=== PATIENT | male | born 1960 | race Caucasian/White ===

== ENCOUNTER → 2021-06-25 | Outpatient (CLI) | payer OTHER, MEDICARE ==
--- NOTE | 2021-06-25 12:32 | Diagnostic Imaging Report ---
PROCEDURE: US right lower extremity venous. TECHNIQUE: Multiple real-time grayscale images were obtained over the right lower extremity in various projections. Additional spectral analysis and color Doppler duplex images were also obtained. INDICATION: Right calf pain. FINDINGS: There is no evidence of right lower extremity DVT. Right lower extremity deep venous system shows normal compressibility with normal response to augmentation and Valsalva. No fluid collection or mass is detected. IMPRESSION: No evidence of right lower extremity DVT. Dictated by: Dictated on workstation # [id number]
== END ==
LOC: RAD 11:37
PROVIDERS: ATTEND Nurse Practitioner Family
DX: S73.191A Other sprain of right hip, initial encounter (principal); X58.XXXA Exposure to other specified factors, initial encounter

== ENCOUNTER → 2021-10-11 | Outpatient (CLI) | payer OTHER, MEDICARE | LOC: WOUNDCARE 10:18 | PROVIDERS: ATTEND Family Medicine | DX: T65.292A Toxic effect of other tobacco and nicotine, intentional self-harm, initial encounter (principal); E11.43 Type 2 diabetes mellitus with diabetic autonomic (poly)neuropathy; T31.0 Burns involving less than 10% of body surface; T25.332A Burn of third degree of left toe(s) (nail), initial encounter; E11.65 Type 2 diabetes mellitus with hyperglycemia | CPT/HCPCS: 16020; G0463 ==

== ENCOUNTER → 2021-10-18 | Outpatient (CLI) | payer OTHER, MEDICARE | LOC: WOUNDCARE 08:28 | PROVIDERS: ATTEND Family Medicine | DX: T65.292A Toxic effect of other tobacco and nicotine, intentional self-harm, initial encounter (principal); E11.43 Type 2 diabetes mellitus with diabetic autonomic (poly)neuropathy; T31.0 Burns involving less than 10% of body surface; T25.332A Burn of third degree of left toe(s) (nail), initial encounter; E11.65 Type 2 diabetes mellitus with hyperglycemia; I70.213 Atherosclerosis of native arteries of extremities with intermittent claudication, bilateral legs; E11.52 Type 2 diabetes mellitus with diabetic peripheral angiopathy with gangrene | CPT/HCPCS: 16020; G0463 ==

== ENCOUNTER → 2021-10-24 | Outpatient (CLI) | payer OTHER, MEDICARE | LOC: WOUNDCARE 08:29 | PROVIDERS: ATTEND Family Medicine | DX: T65.292A Toxic effect of other tobacco and nicotine, intentional self-harm, initial encounter (principal); E11.43 Type 2 diabetes mellitus with diabetic autonomic (poly)neuropathy; T31.0 Burns involving less than 10% of body surface; T25.332A Burn of third degree of left toe(s) (nail), initial encounter; E11.65 Type 2 diabetes mellitus with hyperglycemia; I70.213 Atherosclerosis of native arteries of extremities with intermittent claudication, bilateral legs; E11.52 Type 2 diabetes mellitus with diabetic peripheral angiopathy with gangrene | CPT/HCPCS: 16020; G0463 ==

== ENCOUNTER → 2021-10-29 | Outpatient (CLI) | payer OTHER, MEDICARE | LOC: CARD 08:30 | PROVIDERS: ATTEND Internal Medicine Cardiovascular Disease | DX: I11.9 Hypertensive heart disease without heart failure (principal); I25.10 Atherosclerotic heart disease of native coronary artery without angina pectoris | CPT/HCPCS: 93306 ==

== ENCOUNTER → 2021-10-31 | Outpatient (CLI) | payer OTHER, MEDICARE ==
[~2021-10-31] MED LIST: ALLO300T2 PO; ASPI-1238 PO; ATOR20TA66 PO; CARB1TAB43 PO; CLOP75TA28 PO; DICL75TA2 PO; HYDR-3817 PO; INSU100I34 SQ; MELO15TA14 PO; METF-399 PO; NF-GLIP2.5 PO; PREG75CA75 PO; ROPI4TAB21 PO; SERT-413 PO; SILV20CR14 TP; TRAM50TA3 PO
== END ==
LOC: WOUNDCARE 08:14
PROVIDERS: ATTEND Family Medicine
DX: T65.292A Toxic effect of other tobacco and nicotine, intentional self-harm, initial encounter (principal); E11.43 Type 2 diabetes mellitus with diabetic autonomic (poly)neuropathy; T31.0 Burns involving less than 10% of body surface; T25.332A Burn of third degree of left toe(s) (nail), initial encounter; E11.65 Type 2 diabetes mellitus with hyperglycemia; I70.213 Atherosclerosis of native arteries of extremities with intermittent claudication, bilateral legs; E11.52 Type 2 diabetes mellitus with diabetic peripheral angiopathy with gangrene
CPT/HCPCS: 99213

== ENCOUNTER → 2021-11-01 | Outpatient (CLI) | payer OTHER, MEDICARE ==
[~2021-11-01] VITALS: Ht 175 cm; Wt 105.0 kg
[~2021-11-01] MED LIST changes: +CATHETER FLUSH 10 ML SYR IVP PRN; +REGADENOSON 0.4 MG/5 ML SYR (LEXISCAN) IV ONE
[2021-11-01 07:59] VITALS: BP 158/87
--- NOTE | 2021-11-01 12:18 | Cardiology Stress Test Report ---
Stress Test Report Date of Procedure/Referring: Date of Procedure: Nov 01, 2021 PCP Gricel Mcdonough MD Admitting Physician Jason Peralta MD Indications: HTN Baseline Heart Rate: 73 Baseline Blood Pressure: Blood Pressure Systolic: 158 Blood Pressure Diastolic: 87 Baseline Vitals Vital Signs Date Time Temp Pulse Resp B/P (MAP) Pulse Ox O2 Delivery O2 Flow Rate FiO2 11/01/21 07:59 73 158/87 (110) 99 Baseline EKG: Baseline EKG: NSR Summary After explaining the procedure to the patient, he signed a consent and then brought to the stress nuclear laboratory. Patient received 0.4 mg Lexiscan for stress test, ECG, heart rate and blood pressure were monitored continuously. Resting and stress dose of radio tracer were injected, imaging was acquired and reviewed in short axis, horizontal long axis and vertical long axis views. SSS: 4 SDS: 4 EF: 56 1. Patient tolerated Lexiscan well 2. No attenuation correction was done on the study, there is mild decrease uptake involving the mid to apical anteroseptum with mild reversibility, no sig nificant ischemia or infarction on SPECT images 3. Ejection fraction 56%, normal left ventricular size. GRICEL MCDONOUGH MD Nov 01, 2021 12:18
== END ==
LOC: CARD 06:42
PROVIDERS: ATTEND Internal Medicine Cardiovascular Disease
DX: I10 Essential (primary) hypertension (principal); I25.10 Atherosclerotic heart disease of native coronary artery without angina pectoris
CPT/HCPCS: 78452; 93017; A9502

== ENCOUNTER 2021-11-02 06:35 | Day surgery (SDC) | payer OTHER, MEDICARE ==
[~2021-11-02] VITALS: Ht 177 cm; Wt 106.9 kg
[2021-11-02] VITALS (17 sets, daily range): BP systolic 111–165; BP diastolic 72–102
[2021-11-02] MEDS ORDERED: HEParin (CATH LAB) 2,000 ML IV ONE (06:55)
[2021-11-02] MEDS ORDERED: LIDOCAINE 1% INJ 50 ML (XYLOCAINE) VIAL ONE (06:55)
[2021-11-02] MEDS ORDERED: NS IV 1000 ML 1,000 ML ONE (06:55)
[2021-11-02] MEDS: NS IV 1000 ML 1,000 ML IV SCH ×4 (07:22→19:44)
--- NOTE | 2021-11-02 07:28 | Diagnostic Imaging Report ---
EXAM: CHEST 1 VIEW, AP/PA ONLY INDICATION: Hypertension. Abnormal OSIRIS. Nonhealing wound. COMPARISON: None. FINDINGS: Normal heart size and pulmonary vascularity. No dense consolidation, pleural effusion or pneumothorax. No acute osseous findings. IMPRESSION: No acute cardiopulmonary findings. Dictated by: Dictated on workstation # [id number]
[2021-11-02 07:30] LABS: HEMATOCRIT 45 % (40-54); HEMOGLOBIN 15.6 g/dL (13.3-17.7); MEAN CORPUSCULAR HEMOGLOBIN 32 pg (25-34); MEAN CORPUSCULAR HGB CONC 35 g/dL (32-36); MEAN CORPUSCULAR VOLUME 91 fL (80-99); MEAN PLATELET VOLUME 9.9 fL (9.0-12.2); PLATELET COUNT 204 10^3/uL (130-400); WHITE BLOOD COUNT 7.2 10^3/uL (4.3-11.0)
[2021-11-02 07:32] LABS: BILIRUBIN,URINE NEGATIVE (NEGATIVE); CLARITY,URINE SL CLOUDY; COLOR,URINE YELLOW; GLUCOSE, URINE (UA) 3+ (NEGATIVE); KETONES,URINE NEGATIVE (NEGATIVE); LEUKOCYTE ESTERASE ,URINE 2+ (NEGATIVE); NITRITE,URINE NEGATIVE (NEGATIVE); PH,URINE 6.5 (5-9); PROTEIN,URINE NEGATIVE (NEGATIVE)
[2021-11-02 07:44] LABS: BACTERIA,URINE NEGATIVE /HPF; RBC,URINE 0-2 /HPF; WBC,URINE 50-100 /HPF
[2021-11-02 07:49] LABS: ALBUMIN 4.3 GM/DL (3.2-4.5); BILIRUBIN,TOTAL 0.6 MG/DL (0.1-1.0); CALCIUM 10.1 MG/DL (8.5-10.1); CREATININE SERUM 1.49 MG/DL (0.60-1.30); POTASSIUM 4.2 MMOL/L (3.6-5.0); TOTAL PROTEIN 8.1 GM/DL (6.4-8.2)
[2021-11-02 08:12] LABS: PROTHROMBIN TIME PATIENT 13.7 SEC (12.2-14.7)
[2021-11-02] MEDS ORDERED: TRAM50TA3 PO (08:51)
[2021-11-02] MEDS ORDERED: CARB1TAB43 PO (08:51)
[2021-11-02] MEDS ORDERED: PREG75CA75 PO (08:51)
[2021-11-02] MEDS ORDERED: METF-399 PO (08:51)
[2021-11-02] MEDS ORDERED: MELO15TA14 PO (08:51)
[2021-11-02] MEDS ORDERED: ROPI4TAB21 PO (08:51)
[2021-11-02] MEDS ORDERED: DICL75TA2 PO (08:51)
[2021-11-02] MEDS ORDERED: INSU100I34 SQ (08:51)
[2021-11-02] MEDS ORDERED: SERT-413 PO (08:51)
[2021-11-02] MEDS ORDERED: NF-GLIP2.5 PO (08:51)
[2021-11-02] MEDS ORDERED: ASPI-1238 PO (08:51)
[2021-11-02] MEDS ORDERED: ALLO300T2 PO (08:51)
[2021-11-02] MEDS ORDERED: HYDR-3817 PO (08:51)
[2021-11-02] MEDS ORDERED: SILV20CR14 TP (08:51)
[2021-11-02] MEDS ORDERED: LIDOCAINE 1% INJ 50 ML (XYLOCAINE) VIAL IJ ONE (09:00)
--- NOTE | 2021-11-02 09:13 | Conscious Sedation/ASA ---
Conscious Sedation Pre-Proced Time 09:12 ASA Score 3 For ASA 3 and 4: Consider anesthesia and medical clearance. Also, for patients with a history of failed moderate sedation consider anesthesia. Airway Lungs Heart ASA score ASA 1: a normal healthy patient ASA 2: a patient with a mild systemic disease (mid diabetes, controlled hypertension, obesity x ASA 3: a patient with a severe systemic disease that limits activity (angina, COPD, prior Myocardial infarction) ASA 4: a patient with an incapacitating disease that is a constant threat to life (CHF, renal failure) ASA 5: a moribund patient not expected to survive 24 hrs. (ruptured aneurysm) ASA 6: a declared brain- patient whose organs are being harvested. For emergent operations, add the letter E after the classification Mallampati Classification Grade 3 Sedation Plan Analgesia, Amnesia, Plan communicated to team members, Discussed options with patient/fam, Discussed risks with patient/fam The patient is an appropriate candidate to undergo the planned procedure, sedation, and anesthesia. The patient immediately re-assessed prior to indication. GRICEL HUERTAS MD Nov 02, 2021 09:13
[2021-11-02] MEDS ORDERED: fentaNYL INJ 100 MCG/2 ML AMP ONE (09:27)
[2021-11-02] MEDS ORDERED: MIDAZOLAM 5 MG/5 ML (VERSED) VIAL ONE (09:27)
[2021-11-02] MEDS ORDERED: NITRO DRIP 25000 MCG/D5W 0 ML IV ONE (10:09)
[2021-11-02] MEDS ORDERED: HEParin 1000 UNIT/ML (10ML VIAL) FOR BOLUS ONE (10:09)
[2021-11-02] MEDS ORDERED: CLOPIDOGREL 300 MG (PLAVIX) TABLET PO ONE (10:29)
[2021-11-02] MEDS ORDERED: ASPIRIN 325 MG (5 GR) TABLET ONE (10:29)
[2021-11-02] MEDS ORDERED: PATIENT MAY USE OWN MEDS, ALL PO SCH (10:30)
[2021-11-02] MEDS ORDERED: HYDROcodone/APAP 7.5 MG/325 MG (LORTAB, LORCET PLUS) TABLET PO PRN (10:45)
--- NOTE | 2021-11-02 11:05 | Cardiac Cath Report ---
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 After explaining the procedure to the patient, all pros and cons were explained, all questions were answered. The patient signed the consent and then he was placed on the cardiac catheterization laboratory. Groin was prepped SL fashion local anesthesia was used. Sheath placed in the right femoral artery. Sandy right and left catheter were used to access the coronary system. EBU guide was prolapsed to the left ventricular cavity, pressure was measured, pullback LV to aorta was done. Patient has severe stenosis in the proximal LAD, 6000 units of heparin were given then EBU guide was used, BMW wire was advanced and parked at the distal LAD, primary stenting using ana paula point stent 3 x 23 expanded to 3.2 mm with excellent results. Sandy right was advanced to the left common iliac artery and runoff to the left lower extremity was done. I tried with DSA imaging to the trifurcation and it was not good image. I advanced a Storq wire and then exchanged the catheter used long straight catheter advanced it to the tibioperoneal trunk, did the DSA imaging to the trifurcation then repeat DSA imaging at the foot level, I flushed the catheter and recorded the pressure at the tibioperoneal trunk then during pullback there was a step up in the pressure at the mid SFA. I proceeded with DSA imaging to the mid SFA then pulled back to the common iliac artery then to the aorta and measuring pressure. At the end of the procedure runoff to the right lower extremity was done through the sheath down to the trifurcation. At the end of the procedure the sheath was removed. Closure device was deployed FINDINGS: Hemodynamics LV 141/27, end-diastolic pressure of 27 Aorta 137/83 mean of 106 Left tibioperoneal trunk 132/80/98 Left mid SFA 150/80/104 Left iliac 140/76/98 Lower abdominal aorta 138/77/98 ANATOMY: Left Main is free of obstructive disease Left Anterior Descending has severe stenosis proximally successful primary stenting using skypoint stent 3 x 23 expanded to 3.2 mm, mild disease distally Left Circumflex is large dominant artery, first obtuse marginal branch has moderate to severe mid stenosis Right Coronary Artery is small nondominant artery LV Gram was not done, pressure was measured Left lower extremity, angiogram was done from the left iliac artery then DSA at the level of the trifurcation with the catheter at the tibioperoneal trunk and repeat DSA was done at the foot level, during pullback DSA imaging was done to the mid SFA due to the jump in pressure. Left common iliac and common femoral artery are slightly tortuous with no obstructive disease, left SFA is severely calcified, moderate stenosis at the midportion with 20 mm gradient across the lesion. Distal SFA has moderate stenosis with mild disease, below the trifurcation there is no significant obstructive disease, slow flow due to small vessel disease distally. Right lower extremity: No obstructive disease in the right common femoral artery, right SFA is calcified with mild disease, below the trifurcation there is slow flow with no obstructive disease CONCLUSION: 1. Severe stenosis in the proximal LAD with successful primary stenting using ana paula point stent 3 x 23 expanded to 3.2 mm with excellent results 2. Moderate severe stenosis at the first obtuse marginal branch treated medica lly 3. Elevated left ventricular end-diastolic pressure 4. Heavily calcified left SFA with moderate stenosis at the midportion nonobstructive disease otherwise slow flow below the trifurcation distally due to small vessel disease 5. Mildly calcified right SFA with mild disease nonobstructive disease down to the trifurcation DISCUSSION AND RECOMMENDATION: Patient was loaded with aspirin and Plavix, adding Lipitor due to hyperlipidemia, continue to maximize medical therapy, continue to monitor will consider intervention on the obtuse marginal branch if patient becomes symptomatic. Consider repeating stress test in 6 months. Anesthesia Type: Conscious Sedation Estimated blood loss (mL): 30 ml Contrast Amount: 90 ml Total Radiation Dose: 1039 mGy Post-Procedure Diagnosis Post-operative diagnosis: Nonhealing foot ulcer Coronary artery disease Peripheral arterial disease Hypertension Hyperlipidemia GRICEL HUERTAS MD Nov 02, 2021 11:05
[2021-11-02] MEDS: ETODOLAC 300 MG (LODINE) CAP PO SCH (18:32)
[2021-11-02] MEDS ORDERED: NON-FORMULARY MEDICATION 1 EA EA (Ropinirole HCl 4 MG) PO SCH (21:00)
[2021-11-02] MEDS ORDERED: [UNRECOGNIZED DRUG - OTHER] PO SCH (21:00)
[2021-11-02] MEDS ORDERED: NON-FORMULARY MEDICATION 1 EA EA (Diclofenac Sodium 75 MG) PO SCH (21:00)
[2021-11-02] MEDS ORDERED: CARBIDOPA PO SCH (21:00)
[2021-11-02] MEDS ORDERED: SINEMET 10/100 (CARBIDOPA/LEVADOPA) TAB PO SCH (21:00)
[2021-11-02] MEDS ORDERED: rOPINIRole 1 MG (REQUIP) TABLET PO SCH (21:00)
[2021-11-02] MEDS ORDERED: LEVODOPA PO SCH (21:00)
[2021-11-02] MEDS: PREGABALIN 75 MG (LYRICA) CAP PO SCH (21:26)
[2021-11-03] MEDS: NS IV 1000 ML 1,000 ML IV SCH ×2 (02:29→09:07)
[2021-11-03 03:43] VITALS: BP 148/93
[2021-11-03 05:53] LABS: HEMATOCRIT 40 % (40-54); HEMOGLOBIN 14.1 g/dL (13.3-17.7); MEAN CORPUSCULAR HEMOGLOBIN 31 pg (25-34); MEAN CORPUSCULAR HGB CONC 35 g/dL (32-36); MEAN CORPUSCULAR VOLUME 89 fL (80-99); MEAN PLATELET VOLUME 9.9 fL (9.0-12.2); PLATELET COUNT 157 10^3/uL (130-400); WHITE BLOOD COUNT 6.8 10^3/uL (4.3-11.0)
[2021-11-03 06:22] LABS: CALCIUM 9.2 MG/DL (8.5-10.1); CREATININE SERUM 1.1 MG/DL (0.60-1.30)
[2021-11-03] MEDS ORDERED: glipiZIDE XL 2.5 MG (GLUCOTROL XL) TAB PO SCH (07:00)
[2021-11-03] MEDS ORDERED: CLOP75TA28 PO (07:04)
[2021-11-03] MEDS ORDERED: METF-399 PO (07:04)
[2021-11-03] MEDS ORDERED: ATOR20TA66 PO (07:04)
[2021-11-03 08:00] VITALS: BP 165/96
--- NOTE | 2021-11-03 08:28 | Discharge Inst-Post CATH ---
Discharge Inst-CATH/EP Problems Reviewed?: Yes Post Cardiac Cath/EP D/C Inst Follow Up/Plan Appointment with Dr. Mcdonough's office in 2 to 4 weeks <b>CARDIAC CATH/EP PROCEDURE DISCHARGE INSTRUCTIONS</b> ACTIVITY * Go Home directly and rest. * Limit activity of the leg (or wrist if it was used) for 7 days including aer obics, swimming, jogging, bicycling, etc. * Restrict stair-climbing for 7 days if possible, if not, climb up with your non-cath leg, then bring together on the same step. * Avoid lifting, pushing, pulling or excessive movement of the affected extremi ty for 7 days. * Customary sexual activity may be resumed after 2 days-use caution not to use a position that strains or causes pain to the affected extremity. * No driving for 24 hours. * NO SMOKING. * Avoid straining for bowel movements for 7 days. * Gentle walking on level ground is allowed. * Returning to work will depend on the type of procedure and the results. Your doctor will discuss this with you. CALL YOUR DOCTOR FOR ANY OF THE FOLLOWING: *If bleeding from the puncture site occurs- Apply gentle pressure to site with clean cloth and call your doctor or EMS. * If a knot or lump forms under the skin, increases in size, or causes pain. * If bruising appears to be worsening or moving further down your leg instead of disappearing. * Temperature above 101 F. CARE OF YOUR GROIN INCISION; * Bruising or purple discoloration of the skin near the puncture site is common. * You may shower only, no bathtub bathing for 5 days. Be careful to avoid slipping as your leg may feel stiff. * If a closure device was used on your femoral artery, please see the attached guide regarding care of the device and your leg. * Leave dressing on FOR 24 hours. CARE OF YOUR WRIST INCISION; * Bruising or purple discoloration of the skin near the puncture site is common. * You may shower. * DO NOT submerge wrist. * Leave dressing on FOR 24 hours. GRICEL MCDONOUGH MD Nov 03, 2021 08:28
--- NOTE | 2021-11-03 08:32 | Cardiology Progress Note ---
Subjective Date Seen by Provider: Nov 03, 2021 Time Seen by Provider: 08:29 Subjective/Events-last exam Patient was seen at bedside sitting comfortably, denied any chest pain, no new complaint Review of Systems General: No Chills, No Night Sweats, No Fatigue, No Malaise, No Appetite, No Ot her HEENT: No Head Aches, No Visual Changes, No Eye Pain, No Ear Pain, No Dysp hasia, No Sinus Congestion, No Post Nasal Drip, No Sore Throat, No Other Pulmonary: No Dyspnea, No Cough, No Pleuritic Chest Pain, No Other Cardiovascular: No: Chest Pain, Palpitations, Orthopnea, Paroxysmal Noc. Dyspnea, Edema, Lt Headedness, Other Objective-Cardiology Exam Last Set of Vital Signs Vital Signs 11/03/21 11/03/21 08:00 08:09 Temp 36.0 Pulse 75 Resp 12 B/P (MAP) 165/96 (119) Pulse Ox 98 O2 Delivery Room Air I&O Intake and Output 11/03/21 00:00 Intake Total 650 ml Balance 650 ml Intake Oral 650 ml # Voids 3 General: Alert, Oriented X3, Cooperative HEENT: Atraumatic, PERRLA Neck: Supple, No JVD, No Thyromegaly Lungs: Clear to Auscultation, Normal Air Movement Heart: Regular Rate, Normal S1, Normal S2, No Murmurs Abdomen: Normal Bowel Sounds, Soft, No Tenderness, No Hepatosplenomegaly, No Masses Extremities: No Clubbing, No Cyanosis, No Edema, Normal Pulses, No Tenderness/Swelling Skin: No Rashes, No Breakdown, No Significant Lesion Neuro: Normal Gait, Normal Speech, Strength at 5/5 X4 Ext, Normal Tone, Sensation Intact Psych/Mental Status: Mental Status NL, Mood NL Results Lab Laboratory Tests 11/03/21 05:40 A/P-Cardiology Admission Diagnosis Coronary artery disease Peripheral arterial disease Hypertension Hyperlipidemia Assessment/Plan Coronary artery disease status post stenting to the LAD using skypoint stent 3 x 23 expanded to 3.2 mm with excellent results Peripheral arterial disease, angiogram showed 1. Severe stenosis in the proximal LAD with successful primary stenting using skypoint stent 3 x 23 expanded to 3.2 mm with excellent results 2. Moderate severe stenosis at the first obtuse marginal branch treated medically 3. Elevated left ventricular end-diastolic pressure 4. Heavily calcified left SFA with moderate stenosis at the midportion nonobstructive disease otherwise slow flow below the trifurcation distally due to small vessel disease 5. Mildly calcified right SFA with mild disease nonobstructive disease down to the trifurcation Hypertension, restart home medication monitor Hyperlipidemia, previously intolerant to statin, reported that he tried Lipitor and Crestor. I will try Lipitor again Diabetes mellitus, followed and managed by primary care physician, educated on holding Metformin for 48 hours Obesity, educated on weight loss and diet Patient was educated in length about aspirin and Plavix and the need to be on these medications. GRICEL HUERTAS MD Nov 03, 2021 08:32
[2021-11-03] MEDS ORDERED: ALLOPURINOL 300 MG (ZYLOPRIM) TAB PO SCH (09:00)
[2021-11-03] MEDS ORDERED: ASPIRIN E.C. 81 MG (ECOTRIN) TAB PO SCH (09:00)
[2021-11-03] MEDS ORDERED: MELOXICAM 7.5 MG (MOBIC) TABLET PO SCH (09:00)
[2021-11-03] MEDS ORDERED: SERTRALINE 50 MG (ZOLOFT) TABLET PO SCH (09:00)
[2021-11-03] MEDS ORDERED: MELOXICAM 15 MG PO SCH (09:00)
[2021-11-03] MEDS ORDERED: CLOPIDOGREL 75 MG (PLAVIX) TABLET PO SCH (09:00)
[2021-11-03] MEDS: ETODOLAC 300 MG (LODINE) CAP PO SCH (09:06)
[2021-11-03] MEDS: PREGABALIN 75 MG (LYRICA) CAP PO SCH (09:06)
== END 2021-11-03 09:38 | disposition home or self-care (01) ==
LOC: CATH 06:35 → CSD 10:49 → CATH 11-03 09:38
PROVIDERS: ATTEND Internal Medicine Cardiovascular Disease
DX: I25.10 Atherosclerotic heart disease of native coronary artery without angina pectoris (principal); E11.51 Type 2 diabetes mellitus with diabetic peripheral angiopathy without gangrene; E11.621 Type 2 diabetes mellitus with foot ulcer; I70.213 Atherosclerosis of native arteries of extremities with intermittent claudication, bilateral legs; L97.509 Non-pressure chronic ulcer of other part of unspecified foot with unspecified severity; I10 Essential (primary) hypertension; E78.5 Hyperlipidemia, unspecified; I49.1 Atrial premature depolarization; F17.210 Nicotine dependence, cigarettes, uncomplicated; E66.9 Obesity, unspecified; I65.23 Occlusion and stenosis of bilateral carotid arteries; Z79.899 Other long term (current) drug therapy; Z79.82 Long term (current) use of aspirin; Z79.84 Long term (current) use of oral hypoglycemic drugs; Z90.49 Acquired absence of other specified parts of digestive tract; Z98.890 Other specified postprocedural states; Z68.34 Body mass index [BMI] 34.0-34.9, adult
CPT/HCPCS: 71045; 80048; 80053; 80061; 81000; 82947; 85027 ×2; 85610; 85730; 87081; 87088; 87186; 93005 ×2; 93458; C1760; C1769 ×2; C1874; C1887; C1894; C9600; 36248; 36415; 75716

== ENCOUNTER → 2021-11-07 | Outpatient (CLI) | payer OTHER, MEDICARE ==
[~2021-11-07] MED LIST changes: -CATHETER FLUSH 10 ML SYR IVP PRN; -REGADENOSON 0.4 MG/5 ML SYR (LEXISCAN) IV ONE
== END ==
LOC: WOUNDCARE 08:33
PROVIDERS: ATTEND Family Medicine
DX: T65.292A Toxic effect of other tobacco and nicotine, intentional self-harm, initial encounter (principal); E11.43 Type 2 diabetes mellitus with diabetic autonomic (poly)neuropathy; T31.0 Burns involving less than 10% of body surface; T25.332A Burn of third degree of left toe(s) (nail), initial encounter; E11.65 Type 2 diabetes mellitus with hyperglycemia; I70.213 Atherosclerosis of native arteries of extremities with intermittent claudication, bilateral legs; E11.52 Type 2 diabetes mellitus with diabetic peripheral angiopathy with gangrene
CPT/HCPCS: 16020; A6197; G0463

== ENCOUNTER → 2021-11-14 | Outpatient (CLI) | payer OTHER, MEDICARE | LOC: WOUNDCARE 08:29 | PROVIDERS: ATTEND Family Medicine | DX: T65.292A Toxic effect of other tobacco and nicotine, intentional self-harm, initial encounter (principal); E11.43 Type 2 diabetes mellitus with diabetic autonomic (poly)neuropathy; T31.0 Burns involving less than 10% of body surface; T25.332A Burn of third degree of left toe(s) (nail), initial encounter; E11.65 Type 2 diabetes mellitus with hyperglycemia; I70.213 Atherosclerosis of native arteries of extremities with intermittent claudication, bilateral legs; E11.52 Type 2 diabetes mellitus with diabetic peripheral angiopathy with gangrene | CPT/HCPCS: 16020; G0463 ==

== ENCOUNTER 2021-11-17 10:21 | Emergency (ER) | payer OTHER, MEDICARE ==
[~2021-11-17] VITALS: Ht 106.5 cm; Wt 167.0 kg
[2021-11-17 10:41] LABS: BASOPHILS # (AUTO) 0.1 10^3/uL (0.0-0.1); BASOPHILS % (AUTO) 1 % (0-10); EOSINOPHILS # (AUTO) 0.3 10^3/uL (0.0-0.3); EOSINOPHILS % (AUTO) 5 % (0-10); HEMATOCRIT 41 % (40-54); HEMOGLOBIN 14.3 g/dL (13.3-17.7); LYMPHOCYTES # (AUTO) 1.7 10^3/uL (1.0-4.0); LYMPHOCYTES % (AUTO) 29 % (12-44); MEAN CORPUSCULAR HEMOGLOBIN 31 pg (25-34); MEAN CORPUSCULAR HGB CONC 35 g/dL (32-36); MEAN CORPUSCULAR VOLUME 89 fL (80-99); MEAN PLATELET VOLUME 10.1 fL (9.0-12.2); MONOCYTES # (AUTO) 0.4 10^3/uL (0.0-1.0); MONOCYTES % (AUTO) 7 % (0-12); NEUTROPHILS # (AUTO) 3.3 10^3/uL (1.8-7.8); NEUTROPHILS % (AUTO) 58 % (42-75); PLATELET COUNT 161 10^3/uL (130-400); WHITE BLOOD COUNT 5.7 10^3/uL (4.3-11.0)
[2021-11-17 10:56] LABS: ALBUMIN 4.3 GM/DL (3.2-4.5); POTASSIUM 4.2 MMOL/L (3.6-5.0)
[2021-11-17 10:57] LABS: INR 1.1 (0.8-1.4); PROTHROMBIN TIME PATIENT 14.3 SEC (12.2-14.7)
[2021-11-17 10:59] LABS: TOTAL PROTEIN 7.6 GM/DL (6.4-8.2)
[2021-11-17 11:01] LABS: BILIRUBIN,TOTAL 0.5 MG/DL (0.1-1.0)
[2021-11-17 11:02] LABS: CREATININE SERUM 1.69 MG/DL (0.60-1.30)
[2021-11-17 11:05] LABS: MAGNESIUM 1.9 MG/DL (1.6-2.4)
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
[2021-11-17] MEDS ORDERED: inSUlin (REGULAR) HUMAN 1 UNIT/0.01 ML (CHARGE PER UNIT) IV ONE (11:30)
[2021-11-17] MEDS ORDERED: NS IV 1000 ML 1,000 ML IV SCH (11:30)
--- NOTE | 2021-11-17 11:40 | Diagnostic Imaging Report ---
INDICATION: Chest pain. TECHNIQUE: Single view chest 11:14 AM. CORRELATION STUDY: 11/02/2021 FINDINGS: Heart size is borderline enlarged but stable. Vasculature within normal limits. Lung villeda unchanged with a few areas of micronodularity of both lung bases. No infiltrate. IMPRESSION: 1. Stable chest demonstrates no acute abnormality. Dictated by: Dictated on workstation # [id number]
[2021-11-17 14:10] VITALS: BP 133/82
== END 2021-11-17 14:11 | disposition home or self-care (01) ==
LOC: EDUNIT# 10:21 → ER 10:23
DX: I25.10 Atherosclerotic heart disease of native coronary artery without angina pectoris (principal); F17.210 Nicotine dependence, cigarettes, uncomplicated; Z95.5 Presence of coronary angioplasty implant and graft
CPT/HCPCS: 36415; 71045; 80053; 82947; 83735; 83874; 84484; 85025; 85610; 85730; 93005; 93041

== ENCOUNTER → 2021-11-21 | Outpatient (CLI) | payer OTHER, MEDICARE | LOC: WOUNDCARE 08:57 | PROVIDERS: ATTEND Family Medicine | DX: E11.43 Type 2 diabetes mellitus with diabetic autonomic (poly)neuropathy (principal); T25.332A Burn of third degree of left toe(s) (nail), initial encounter; T31.0 Burns involving less than 10% of body surface; E11.65 Type 2 diabetes mellitus with hyperglycemia; I70.213 Atherosclerosis of native arteries of extremities with intermittent claudication, bilateral legs; E11.52 Type 2 diabetes mellitus with diabetic peripheral angiopathy with gangrene; T65.292A Toxic effect of other tobacco and nicotine, intentional self-harm, initial encounter | CPT/HCPCS: 16020; G0463 ==

== ENCOUNTER → 2021-11-21 | Outpatient (CLI) | payer OTHER, MEDICARE ==
[2021-11-21 10:14] LABS: BILIRUBIN,URINE NEGATIVE (NEGATIVE); CLARITY,URINE CLEAR; COLOR,URINE YELLOW; GLUCOSE, URINE (UA) 3+ (NEGATIVE); KETONES,URINE NEGATIVE (NEGATIVE); LEUKOCYTE ESTERASE ,URINE 1+ (NEGATIVE); NITRITE,URINE NEGATIVE (NEGATIVE); PROTEIN,URINE NEGATIVE (NEGATIVE)
[2021-11-21 11:04] LABS: BACTERIA,URINE TRACE /HPF; RBC,URINE RARE /HPF
== END ==
LOC: LAB 09:56
PROVIDERS: ATTEND Family Medicine
DX: R30.9 Painful micturition, unspecified (principal)
CPT/HCPCS: 81000; 87077; 87088

== ENCOUNTER → 2021-11-28 | Outpatient (CLI) | payer OTHER, MEDICARE | LOC: WOUNDCARE 08:26 | PROVIDERS: ATTEND Family Medicine | DX: T65.292A Toxic effect of other tobacco and nicotine, intentional self-harm, initial encounter (principal); E11.43 Type 2 diabetes mellitus with diabetic autonomic (poly)neuropathy; T25.332A Burn of third degree of left toe(s) (nail), initial encounter; T31.0 Burns involving less than 10% of body surface; E11.65 Type 2 diabetes mellitus with hyperglycemia; E11.51 Type 2 diabetes mellitus with diabetic peripheral angiopathy without gangrene; E11.52 Type 2 diabetes mellitus with diabetic peripheral angiopathy with gangrene | CPT/HCPCS: 16020; G0463 ==

== ENCOUNTER → 2021-12-05 | Outpatient (CLI) | payer OTHER, MEDICARE | LOC: WOUNDCARE 08:24 | PROVIDERS: ATTEND Family Medicine | DX: T65.292A Toxic effect of other tobacco and nicotine, intentional self-harm, initial encounter (principal); E11.43 Type 2 diabetes mellitus with diabetic autonomic (poly)neuropathy; T25.332A Burn of third degree of left toe(s) (nail), initial encounter; T31.0 Burns involving less than 10% of body surface; E11.65 Type 2 diabetes mellitus with hyperglycemia; E11.52 Type 2 diabetes mellitus with diabetic peripheral angiopathy with gangrene; I70.213 Atherosclerosis of native arteries of extremities with intermittent claudication, bilateral legs | CPT/HCPCS: 16020; G0463 ==

== ENCOUNTER → 2021-12-12 | Outpatient (CLI) | payer OTHER, MEDICARE | LOC: WOUNDCARE 08:27 | PROVIDERS: ATTEND Family Medicine | DX: T65.292A Toxic effect of other tobacco and nicotine, intentional self-harm, initial encounter (principal); E11.43 Type 2 diabetes mellitus with diabetic autonomic (poly)neuropathy; T25.332A Burn of third degree of left toe(s) (nail), initial encounter; T31.0 Burns involving less than 10% of body surface; E11.65 Type 2 diabetes mellitus with hyperglycemia; I70.213 Atherosclerosis of native arteries of extremities with intermittent claudication, bilateral legs; E11.621 Type 2 diabetes mellitus with foot ulcer; E11.52 Type 2 diabetes mellitus with diabetic peripheral angiopathy with gangrene | CPT/HCPCS: 99213 ==

== ENCOUNTER → 2021-12-19 | Outpatient (CLI) | payer OTHER, MEDICARE | LOC: WOUNDCARE 08:22 | PROVIDERS: ATTEND Family Medicine | DX: T65.292A Toxic effect of other tobacco and nicotine, intentional self-harm, initial encounter (principal); E11.43 Type 2 diabetes mellitus with diabetic autonomic (poly)neuropathy; T31.0 Burns involving less than 10% of body surface; T25.332A Burn of third degree of left toe(s) (nail), initial encounter; E11.65 Type 2 diabetes mellitus with hyperglycemia; I70.213 Atherosclerosis of native arteries of extremities with intermittent claudication, bilateral legs; E11.621 Type 2 diabetes mellitus with foot ulcer | CPT/HCPCS: 99213 ==

== ENCOUNTER → 2022-01-02 | Outpatient (CLI) | payer OTHER, MEDICARE | LOC: WOUNDCARE 08:29 | PROVIDERS: ATTEND Family Medicine | DX: T65.292A Toxic effect of other tobacco and nicotine, intentional self-harm, initial encounter (principal); T25.332A Burn of third degree of left toe(s) (nail), initial encounter; T31.0 Burns involving less than 10% of body surface; E11.65 Type 2 diabetes mellitus with hyperglycemia; E11.51 Type 2 diabetes mellitus with diabetic peripheral angiopathy without gangrene; E11.621 Type 2 diabetes mellitus with foot ulcer; E11.43 Type 2 diabetes mellitus with diabetic autonomic (poly)neuropathy | CPT/HCPCS: 99212 ==

== ENCOUNTER → 2022-06-11 | Outpatient (CLI) | payer OTHER, MEDICARE ==
--- NOTE | 2022-06-11 20:15 | Diagnostic Imaging Report ---
INDICATION: Pain. COMPARISON: None available. TECHNIQUE: Two radiographs of the left hip dated 06/11/2022. FINDINGS: Postsurgical changes partially visualized within the lumbosacral spine. Mild degenerative changes involving the left sacroiliac joint. No acute fracture or dislocation. Severe degenerative changes of the left hip joint are noted with severe joint space narrowing and sclerosis of the articular surfaces. Mild flattening of the superior femoral head is identified. Mild vascular calcifications. IMPRESSION: No acute osseous abnormality with severe degenerative changes of the left hip. Postsurgical changes partially visualized within the lumbosacral spine. Dictated by: Dictated on workstation # [id number]
== END ==
LOC: ORTHO 14:16
PROVIDERS: ATTEND Orthopaedic Surgery
DX: M25.552 Pain in left hip (principal); Z98.890 Other specified postprocedural states
CPT/HCPCS: 73502; G0463; 99203

== ENCOUNTER → 2022-07-04 | Outpatient (CLI) | payer OTHER, MEDICARE ==
--- NOTE | 2022-07-04 13:47 | Diagnostic Imaging Report ---
INDICATION: Left knee pain. FINDINGS: 4 views. Nonweightbearing images show no evidence of joint space narrowing. Articulating surfaces are smooth without hypertrophic change. Patellofemoral joint shows good alignment. Trochlea is normal. There is no chondrocalcinosis or loose bodies. IMPRESSION: Normal left knee. Dictated by: Dictated on workstation # [id number]
== END ==
LOC: ORTHO 08:32
PROVIDERS: ATTEND Orthopaedic Surgery
DX: M25.562 Pain in left knee (principal)
CPT/HCPCS: 73564; G0463; 99213

== ENCOUNTER 2022-08-04 21:39 | Inpatient (IN) | payer OTHER, MEDICARE ==
[~2022-08-04] VITALS: Ht 175.3 cm; Wt 102.0 kg
--- NOTE | 2022-08-04 22:27 | ED General ---
General Chief Complaint: Lower Extremity Stated Complaint: LEFT HIP PAIN Nursing Triage Note: PT ARRIVAL TO ER VIA PRIVATE VEHICLE FROM HOME IN WHEELCHAIR WITH COMPLAINT OF LEFT HIP PAIN X9 DAYS. PT SATES THAT HE IS SCHEDULED FOR HIP REPLACEMENT SURGERY ON 08/12, BUT FELL 9 DAYS AGO IN BATH TUB AND HAS SWELLING AND SEVERE PAIN SINCE. PAIN HAS NOW WORSENED, AND PATIENT IS BARELY ABLE TO PUT WEIGHT ON IT. PAIN AT A 8/10. PAIN IS A SHARP PAIN. PAITIENT HAS SWELLING TO LEFT HIP AND GROIN AREA. Source of Information: Patient Exam Limitations: No Limitations History of Present Illness Date Seen by Provider: Aug 04, 2022 Time Seen by Provider: 22:05 Initial Comments Here with report of left hip pain. He is due to have hip replacement surgery on 08/12. That was delayed after injections to the left hip due to the need to wait to reduce chance of infection. Does admit to falling a week ago or more and has increasing pain to the hip. States it feels like it pops in and out. Complains of swelling to the legs bilateral with left greater than right. He is diabetic and has no idea what his blood sugar is currently as he has been unable to get up today to give himself insulin. 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 She was out of town taking her grandchildren home today. She does report that he has had increasing pain and difficulty with moving around. Patient is prescribed oxycodone 7.5 and took 1 about 4 hours ago. That was his last 1. His refill will be on Friday. Follows with Dr. Arnett and primary care physician is out of [place]. Timing/Duration: 1 Week, Getting Worse Severity: Moderate Associated Systoms: No Chest Pain, No Cough, No Fever/Chills, No Nausea/Vomiting, No Shortness of Air; Weakness Allergies and Home Medications Allergies Coded Allergies: No Known Drug Allergies (Unverified , 11/01/21) Patient Home Medication List Home Medication List Reviewed: Yes Allopurinol (Allopurinol) 300 Mg Tablet, 300 MG PO DAILY, (Reported) Entered as Reported by: WESTON DUFFY on 11/02/21 0851 Aspirin (Aspirin EC) 81 Mg Tablet., 81 MG PO DAILY, (Reported) Entered as Reported by: WESTON DUFFY on 11/02/21 0851 Atorvastatin Calcium (Atorvastatin Calcium) 20 Mg Tablet, 20 MG PO HS Prescribed by: GRICEL HUERTAS on 11/03/21703 Carbidopa/Levodopa (Carbidopa-Levo 10-100 mg Odt) 1 Each Tab.rapdis, 2 EACH PO HS, (Reported) Entered as Reported by: WESTON DUFFY on 11/02/21850 Clopidogrel Bisulfate (Clopidogrel) 75 Mg Tablet, 75 MG PO DAILY Prescribed by: GRICEL HUERTAS on 11/03/21703 Diclofenac Sodium (Diclofenac Sodium) 75 Mg Tablet.dr, 75 MG PO BID, (Reported) Entered as Reported by: WESTON DUFFY on 11/02/21850 Glipizide (Glipizide ER) 2.5 Mg Tab, 2.5 MG PO DAILY, (Reported) Entered as Reported by: WESTON DUFFY on 11/02/21850 Hydrocodone/Acetaminophen (Hydrocodone-Acetamin 7.5-325) 1 Each Tablet, 1 EACH PO TID PRN for PAIN-MODERATE (5-7), (Reported) Entered as Reported by: WESTON DUFFY on 11/02/21850 Insulin Glargine,Hum.rec.anlog (Basaglar Kwikpen U-100) 100 Unit/1 Ml Insuln.pen, 55 UNIT SQ EVENING, (Reported) Entered as Reported by: WESTON DUFFY on 11/02/21850 Meloxicam (Mobic) 15 Mg Tablet, 15 MG PO DAILY, (Reported) Entered as Reported by: WESTON DUFFY on 11/02/21850 Metformin HCl (Metformin HCl) 1,000 Mg Tablet, 1,000 MG PO DAILY Prescribed by: GRICEL HUERTAS on 11/03/21703 Pregabalin (Pregabalin) 75 Mg Capsule, 75 MG PO BID, (Reported) Entered as Reported by: WESTON DUFFY on 11/02/21850 Ropinirole HCl (Ropinirole HCl) 4 Mg Tab.er.24h, 4 MG PO HS, (Reported) Entered as Reported by: WESTON DUFFY on 11/02/21850 Sertraline HCl (Sertraline HCl) 50 Mg Tablet, 50 MG PO DAILY, (Reported) Entered as Reported by: WESTON DUFFY on 11/02/21850 Silver Sulfadiazine (Silvadene) 20 Gm Cream..g., 1 % TP BID, (Reported) Entered as Reported by: WESTON DUFFY on 11/02/21850 Tramadol HCl (Tramadol HCl) 50 Mg Tablet, 50 MG PO BID, (Reported) Entered as Reported by: WESTON DUFFY on 11/02/21850 Review of Systems Review of Systems Constitutional: see HPI; No chills, No fever EENTM: No nose congestion, No throat pain Respiratory: No cough, No short of breath Cardiovascular: No chest pain; edema Gastrointestinal: No nausea, No vomiting Genitourinary: no symptoms reported Musculoskeletal: joint pain, joint swelling, muscle pain, muscle stiffness Skin: No change in color, No lesions Psychiatric/Neurological: No Symptoms Reported All Other Systems Reviewed Negative Unless Noted: Yes Past Ihytnbj-Hwoymd-Hgtipg Hx Patient Social History Tobacco Use?: Yes Tobacco type used: Cigarettes Smoking Status: Current Everyday Smoker Use of E-Cig and/or Vaping dev: No Substance use?: No Alcohol Use?: No Pt feels they are or have been: No Immunizations Up To Date Influenza Vaccine Up-to-Date: Yes; Up-to-Date First/Initial COVID19 Vaccinat: yes Second COVID19 Vaccination Juan Carlos: yes Third COVID19 Vaccination Date: yes COVID19 Vaccine 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: [place] Past Medical History Surgeries: Yes Coronary Stent Respiratory: No Sleep Apnea Currently Using CPAP: No Currently Using BIPAP: No Cardiac: Yes Coronary Artery Disease Neurological: No Concussion Genitourinary: No Gastrointestinal: No Gastroesophageal Reflux Musculoskeletal: No Endocrine: Yes Diabetes, Non-Insulin dep HEENT: No Cancer: No Psychosocial: No Integumentary: No Family Medical History Reviewed Nursing Family Hx Physical Exam Vital Signs Vital Signs - First Documented 08/04/22 21:58 Temp 36.2 Pulse 83 Resp 22 B/P (MAP) 160/89 (112) Pulse Ox 96 O2 Delivery Room Air Capillary Refill : Less Than 3 Seconds Height, Weight, BMI Height: '" Weight: lbs. oz. kg; 147.00 BMI Method: General Appearance: No Apparent Distress, WD/WN HEENT: PERRL/EOMI, Pharynx Normal Neck: Non Tender, Supple Respiratory: Lungs Clear, Normal Breath Sounds Cardiovascular: Regular Rate, Rhythm, No Murmur Gastrointestinal: Non Tender, Soft Back: No CVA Tenderness, No Vertebral Tenderness Extremity: Pedal Edema (1-2+ bilateral up to level of knees.), Other (Moderate tenderness at area left hip with decreased range of motion due to pain) Neurologic/Psychiatric: Alert, Oriented x3 Skin: Normal Color, Warm/Dry; No Erythema Progress/Results/Core Measures Suspected Sepsis SIRS Temperature: Pulse: 83 Respiratory Rate: 22 Laboratory Tests 08/04/22 22:37: White Blood Count 7.6 Blood Pressure 160 /89 Mean: 112 Laboratory Tests 08/04/22 22:37: Creatinine 1.82H, Platelet Count 205, Total Bilirubin 0.4 Results/Orders Lab Results Laboratory Tests Test 08/04/22 22:37 08/04/22 22:39 Range/Units White Blood Count 7.6 4.3-11.0 10^3/uL Red Blood Count 4.71 4.30-5.52 10^6/uL Hemoglobin 14.6 13.3-17.7 g/dL Hematocrit 42 40-54 % Mean Corpuscular Volume 89 80-99 fL Mean Corpuscular Hemoglobin 31 25-34 pg Mean Corpuscular Hemoglobin Concent 35 32-36 g/dL Red Cell Distribution Width 12.7 10.0-14.5 % Platelet Count 205 130-400 10^3/uL Mean Platelet Volume 9.7 9.0-12.2 fL Immature Granulocyte % (Auto) 1 % Neutrophils (%) (Auto) 53 42-75 % Lymphocytes (%) (Auto) 31 12-44 % Monocytes (%) (Auto) 8 0-12 % Eosinophils (%) (Auto) 7 0-10 % Basophils (%) (Auto) 1 0-10 % Neutrophils # (Auto) 4.0 1.8-7.8 10^3/uL Lymphocytes # (Auto) 2.4 1.0-4.0 10^3/uL Monocytes # (Auto) 0.6 0.0-1.0 10^3/uL Eosinophils # (Auto) 0.5 H 0.0-0.3 10^3/uL Basophils # (Auto) 0.1 0.0-0.1 10^3/uL Immature Granulocyte # (Auto) 0.0 0.0-0.1 10^3/uL D-Dimer 0.95 H 0.00-0.49 UG/ML Sodium Level 137 135-145 MMOL/L Potassium Level 3.9 3.6-5.0 MMOL/L Chloride Level 99 98-107 MMOL/L Carbon Dioxide Level 25 21-32 MMOL/L Anion Gap 13 5-14 MMOL/L Blood Urea Nitrogen 29 H 7-18 MG/DL Creatinine 1.82 H 0.60-1.30 MG/DL Estimat Glomerular Filtration Rate 41 BUN/Creatinine Ratio 16 Glucose Level 264 H 70-105 MG/DL Calcium Level 10.0 8.5-10.1 MG/DL Corrected Calcium 9.8 8.5-10.1 MG/DL Total Bilirubin 0.4 0.1-1.0 MG/DL Aspartate Amino Transf (AST/SGOT) 28 5-34 U/L Alanine Aminotransferase (ALT/SGPT) 40 0-55 U/L Alkaline Phosphatase 135 40-136 U/L C-Reactive Protein High Sensitivity 0.86 H 0.00-0.50 MG/DL Total Protein 7.6 6.4-8.2 GM/DL Albumin 4.2 3.2-4.5 GM/DL Glucometer 256 H 70-110 MG/DL My Orders Orders - BIANCA FITZGERALD MD Cbc With Automated Diff (08/04/22 22:18) Comprehensive Metabolic Panel (08/04/22 22:18) Hs C Reactive Protein (08/04/22 22:18) Fibrin Degradation Products (08/04/22 22:18) Accucheck Stat ONCE (08/04/22 22:18) Ed Iv/Invasive Line Start (08/04/22 22:18) Pelvis With Left Hip 2-3 Views (08/04/22 22:18) Hydromorphone Injection (Dilaudid Inject (08/04/22 22:30) Medications Given in ED Current Medications Medications Dose Ordered Sig/Fuentes Route Start Time Stop Time Status Last Admin Dose Admin Hydromorphone HCl 1 mg ONCE ONCE IV 08/04/22 22:30 08/04/22 22:31 DC 08/04/22 22:53 1 MG Vital Signs/I&O 08/04/22 21:58 Temp 36.2 Pulse 83 Resp 22 B/P (MAP) 160/89 (112) Pulse Ox 96 O2 Delivery Room Air Capillary Refill : Less Than 3 Seconds Blood Pressure Mean: 112 Progress Note : Progress Note Seen and evaluated. IV, CBC, CMP and CRP, x-ray left hip and pelvis and Dilaudid 1 mg IV ordered. We will check fingerstick blood sugar to determine current glucose level. Monitor patient. 2257: X-ray of the hip shows fracture. Patient does follow-up with Dr. Arnett. Pain is improved. Blood sugar is not well controlled. Given new fracture, patient will need to be admitted. Dr. Arnett is on-call in the morning. Patient to be admitted to hospitalist service with Dr. Arnett on consult. D-dimer slightly elevated but not in concerning range especially given fracture. All of the findings and concerns discussed with patient and family who agree with admission and are appreciative of the care. Case discussed with Dr. Vela who accepts patient for admission to hospitalist service. We will continue diabetic diet overnight as discussed with Dr. Vela. We will continue oral and breakthrough pain medicines as needed. Insulin sliding scale ordered. Diagnostic Imaging Diagonstic Imaging: Xray Plain Films/CT/US/NM/MRI: pelvis, hip Comments X-ray of left hip and pelvis shows acute fracture proximal hip at And definitely change from previous. Interpreted by me. Pending radiology review. Reviewed: Reviewed by Me Departure Communication (Admissions) Time/Spoke to Admitting Phy: 22:58 Impression Primary Impression: Hip fracture, left Qualified Codes: S72.002A - Fracture of unspecified part of neck of left femur, initial encounter for closed fracture Additional Impression: Uncontrolled type 2 diabetes mellitus with hyperglycemia Disposition: ADMITTED INPATIENT Condition: Stable Admissions Decision to Admit Reason: Admit from ER (General) Decision to Admit/Date: Aug 04, 2022 Time/Decision to Admit Time: 22:58 Departure-Patient Inst. Referrals: NO,LOCAL PHYSICIAN (PCP/Family) Primary Care Physician BIANCA FITZGERALD MD Aug 04, 2022 22:26
[2022-08-04] MEDS ORDERED: HYDROmorphone 2 MG/ML VIAL (DILAUDID) IV ONE (22:30)
[2022-08-04 22:44] LABS: BASOPHILS # (AUTO) 0.1 10^3/uL (0.0-0.1); BASOPHILS % (AUTO) 1 % (0-10); EOSINOPHILS # (AUTO) 0.5 10^3/uL (0.0-0.3); EOSINOPHILS % (AUTO) 7 % (0-10); HEMATOCRIT 42 % (40-54); HEMOGLOBIN 14.6 g/dL (13.3-17.7); LYMPHOCYTES # (AUTO) 2.4 10^3/uL (1.0-4.0); LYMPHOCYTES % (AUTO) 31 % (12-44); MEAN CORPUSCULAR HEMOGLOBIN 31 pg (25-34); MEAN CORPUSCULAR HGB CONC 35 g/dL (32-36); MEAN CORPUSCULAR VOLUME 89 fL (80-99); MEAN PLATELET VOLUME 9.7 fL (9.0-12.2); MONOCYTES # (AUTO) 0.6 10^3/uL (0.0-1.0); MONOCYTES % (AUTO) 8 % (0-12); NEUTROPHILS % (AUTO) 53 % (42-75); PLATELET COUNT 205 10^3/uL (130-400); WHITE BLOOD COUNT 7.6 10^3/uL (4.3-11.0)
[2022-08-04 23:04] LABS: ALBUMIN 4.2 GM/DL (3.2-4.5); BILIRUBIN,TOTAL 0.4 MG/DL (0.1-1.0); CREATININE SERUM 1.82 MG/DL (0.60-1.30); POTASSIUM 3.9 MMOL/L (3.6-5.0); TOTAL PROTEIN 7.6 GM/DL (6.4-8.2)
[2022-08-05] VITALS (7 sets, daily range): BP systolic 101–157; BP diastolic 61–91
[2022-08-05] MEDS ORDERED: HYDROmorphone 2 MG/ML VIAL (DILAUDID) IV ONE (01:00)
[2022-08-05] MEDS: NS IV 1000 ML 1,000 ML IV SCH (04:19)
[2022-08-05] MEDS: fentaNYL INJ 100 MCG/2 ML AMP IV PRN ×9 (04:19→23:35)
[2022-08-05] MEDS: oxyCODONE/APAP 10/325MG (PERCOCET 10) TABLET PO PRN ×3 (05:34→20:06)
[2022-08-05 05:38] LABS: BASOPHILS # (AUTO) 0.1 10^3/uL (0.0-0.1); BASOPHILS % (AUTO) 1 % (0-10); EOSINOPHILS # (AUTO) 0.5 10^3/uL (0.0-0.3); EOSINOPHILS % (AUTO) 7 % (0-10); HEMATOCRIT 41 % (40-54); HEMOGLOBIN 14.2 g/dL (13.3-17.7); LYMPHOCYTES # (AUTO) 2.5 10^3/uL (1.0-4.0); LYMPHOCYTES % (AUTO) 32 % (12-44); MEAN CORPUSCULAR HEMOGLOBIN 31 pg (25-34); MEAN CORPUSCULAR HGB CONC 35 g/dL (32-36); MEAN CORPUSCULAR VOLUME 89 fL (80-99); MEAN PLATELET VOLUME 9.9 fL (9.0-12.2); MONOCYTES # (AUTO) 0.7 10^3/uL (0.0-1.0); MONOCYTES % (AUTO) 9 % (0-12); NEUTROPHILS % (AUTO) 51 % (42-75); PLATELET COUNT 198 10^3/uL (130-400); WHITE BLOOD COUNT 7.9 10^3/uL (4.3-11.0)
[2022-08-05 05:56] LABS: CALCIUM 9.9 MG/DL (8.5-10.1); CREATININE SERUM 1.45 MG/DL (0.60-1.30); POTASSIUM 3.5 MMOL/L (3.6-5.0)
[2022-08-05] MEDS: inSUlin ASPART (NovoLOG) 1 UNIT/0.01 ML (CHARGE PER UNIT) SC SCH ×4 (05:58→20:06)
[2022-08-05] MEDS ORDERED: CATHETER FLUSH 10 ML SYR IVP PRN (07:15)
--- NOTE | 2022-08-05 08:20 | Diagnostic Imaging Report ---
INDICATION: Left hip and pelvic pain. COMPARISON: 06/11/2022 FINDINGS: Frontal radiograph view the pelvis and 2 dedicated radiograph views left hip were obtained and show interval development of acute fracture through the femoral head. There is superior subluxation of the distal fracture fragment. Femoral acetabular joint spaces otherwise maintained. Postsurgical changes of previous total right hip replacement are noted. Hardware appears appropriately positioned on this single frontal view of the pelvis. No unexpected radiopaque foreign bodies are seen. IMPRESSION: 1. Acute fracture of the left femoral head as above. Dictated by: Dictated on workstation # [id number]
--- NOTE | 2022-08-05 08:48 | History & Physical-Hospitalist ---
History of Present Illness HPI/Chief Complaint Patient is a 61-year-old male with past medical history of insulin- dependent diabetes type 2, osteoarthritis, who presented to the emergency department due to left hip pain. He normally sees Dr. Arnett for his orthopedic care and is scheduled for hyper placement on the . Over the past week though he has had worsening pain and was unable to get out of his chair yesterday due to the pain. Because of this he did not take his insulin. He was found to be mildly hypoglycemic on arrival and imaging revealed a left hip fracture. He was admitted for further management. This morning he reports that he is doing well except for the pain and is hopeful for expedited surgery. Source: patient Exam Limitations: no limitations Date Seen 08/05/22 Time Seen by a Provider: 08:43 Attending Physician No,Local Physician PCP Admitting Physician: Byron Vela MD Attending Physician: Byron Vela MD Referring Physician Date of Admission Aug 04, 2022 at 22:58 Home Medications & Allergies Home Medications Reviewed patient Home Medication Reconciliation performed by pharmacy medication reconciliations injection maintenance technician and/or nursing. Patients Allergies have been reviewed. Allergies Allergies Coded Allergies Czbowon-DGP-ReR Reductase Inhibitor (Verified Adverse Reaction, Unknown, muscle aches, 08/05/22) Past Ebzbsmh-Wkwtai-Hqhlax Hx Patient Social History Marrital Status: Tobacco Use?: Yes Tobacco type used: Cigarettes Smoking Status: Current Everyday Smoker Use of E-Cig and/or Vaping dev: No Substance use?: No Alcohol Use?: No Pt feels they are or have been: No Immunizations Up To Date First/Initial COVID19 Vaccinat: yes Second COVID19 Vaccination Juan Carlos: yes Tetanus Booster (TDap): Less Than 5 Years Current Status Advance Directives: No Communicates: Verbally Primary Language: South Korean Preferred Spoken Language: South Korean Is interpretation needed?: No Sensory deficits: Vision impairment Implanted or Applied Medical D: Orthopedic hardware, Stents Past Medical History Surgeries: Coronary Stent, Orthopedic (back, carpal tunnel, right hip replaced) Sleep Apnea Currently Using CPAP: No Currently Using BIPAP: No Coronary Artery Disease, High Cholesterol, Hypertension Concussion Gastroesophageal Reflux Diabetes, Non-Insulin dep Family Medical History Reviewed Nursing Family Hx No Pertinent Family Hx Review of Systems Constitutional: No chills, No fever EENTM: no symptoms reported Respiratory: no symptoms reported Cardiovascular: no symptoms reported Gastrointestinal: no symptoms reported Genitourinary: no symptoms reported Musculoskeletal: see HPI Skin: no symptoms reported Psychiatric/Neurological: No Symptoms Reported Physical Exam Physical Exam Vital Signs Vital Signs - First Documented 08/04/22 21:58 Temp 36.2 Pulse 83 Resp 22 B/P (MAP) 160/89 (112) Pulse Ox 96 O2 Delivery Room Air Capillary Refill : Less Than 3 Seconds Height, Weight, BMI Height: '" Weight: lbs. oz. kg; 33.19 BMI Method: General Appearance: No Apparent Distress, WD/WN, Chronically ill, Obese HEENT: PERRL/EOMI, Moist Mucous Membranes; No Scleral Icterus (L), No Scleral Icterus (R) Neck: Normal Inspection, Supple Respiratory: Lungs Clear, No Accessory Muscle Use, No Respiratory Distress Cardiovascular: Regular Rate, Rhythm, No JVD, No Murmur Gastrointestinal: Normal Bowel Sounds, Non Tender, Soft Extremity: Normal Capillary Refill, No Calf Tenderness, No Pedal Edema Neurologic/Psychiatric: Alert, Oriented x3, Normal Mood/Affect Results Results/Procedures Labs Laboratory Tests 08/04/22 22:37 08/05/22 05:15 Patient resulted labs reviewed. Imaging: Reviewed Imaging Report Imaging [facility] [place] [place] NAME: SHARIFA CLEMONS Zahida [facility] REC#: [id number] PT STATUS: ADM IN : 1960 PHYSICIAN: BIANCA FITZGERALD MD ADMIT DATE: 08/04/22/ICU Draft Date of Exam:08/04/22 PELVIS WITH LEFT HIP 2-3 VIEWS INDICATION: Left hip and pelvic pain. COMPARISON: 06/11/2022 FINDINGS: Frontal radiograph view the pelvis and 2 dedicated radiograph views left hip were obtained and show interval development of acute fracture through the femoral head. There is superior subluxation of the distal fracture fragment. Femoral acetabular joint spaces otherwise maintained. Postsurgical changes of previous total right hip replacement are noted. Hardware appears appropriately positioned on this single frontal view of the pelvis. No unexpected radiopaque foreign bodies are seen. IMPRESSION: 1. Acute fracture of the left femoral head as above. Dictated on workstation # [id number] Dict: 08/05/22810 Trans: 08/05/22 08 [facility] [id number] Interpreted by: JOSE TERAN MD Electronically signed by: Assessment/Plan Admission Diagnosis L hip fracture Admission Status: Inpatient Order (span 2 midnights) Reason for Inpatient Admission: see below Assessment and Plan left hip fracture Left hip osteoarthritis Dr Arnett consulted as is primary orthopedist Continue pain regimen Discussed with Dr Arnett- can eat today and hopeful for surgery in the next day or two PT/OT postop IDDMII Poorly controlled A1c 11 3 weeks ago with PCP Requested referral to paper winder Referral placed to Dr Rosado at [facility] spoke to director of physician practices and they will call him to set up appointment Parkinson's Disease Continue Sinemet when med rec done DVT ppx: SCDs until surgery Diagnosis/Problems Diagnosis/Problems (1) HLD (hyperlipidemia) (2) Hip fracture, left Status: Acute Qualifiers: Encounter type: initial encounter Fracture type: closed Qualified Codes: S72.002A - Fracture of unspecified part of neck of left femur, initial encounter for closed fracture (3) Uncontrolled type 2 diabetes mellitus with hyperglycemia Status: Acute (4) Coronary artery disease Status: Acute (5) Hypertension MAYITO BARAKAT MD Aug 05, 2022 08:48
[2022-08-05] MEDS: CYCLOBENZAPRINE 10 MG (FLEXERIL) TAB PO PRN ×2 (13:09→20:42)
--- NOTE | 2022-08-05 14:50 | Consultation - Ortho ---
Consult - Ortho Subjective Date of Exam 08/05/22 Chief Complaint Left Hip Pain HPI/Events since last exam Patient known to me from my clinic. Scheduled for L SKYLER on 08/12. Recently with increased hip pain after a fall in bath tub. Seen in ER secondary to the increased pain. Found to have fracture of the left femoral head. Medical, Surgical History See admit Social History See admit Family History See admit Review of Systems - Allergies: Coded Allergies: Tuugcsh-VGR-NzV Reductase Inhibitor (Verified Adverse Reaction, Unknown, muscle aches, 08/05/22) Home Meds Active Scripts Atorvastatin Calcium (Atorvastatin Calcium) 20 Mg Tablet, 20 MG PO HS, #30 TAB 3 Refills Prov:GRICEL HUERTAS MD 11/03/21 Clopidogrel Bisulfate (Clopidogrel) 75 Mg Tablet, 75 MG PO DAILY, #30 TAB 6 Refills Prov:GRICEL HUERTAS MD 11/03/21 Metformin HCl (Metformin HCl) 1,000 Mg Tablet, 1000 MG PO DAILY, #1 TAB Hold Metformin for 48 hours Prov:GRICEL HUERTAS MD 11/03/21 Reported Medications Tramadol HCl (Tramadol HCl) 50 Mg Tablet, 50 MG PO BID, TAB 11/02/21 Silver Sulfadiazine (Silvadene) 20 Gm Cream..g., 1 % TP BID, EA 11/02/21 Sertraline HCl (Sertraline HCl) 50 Mg Tablet, 50 MG PO DAILY, TAB 11/02/21 Ropinirole HCl (Ropinirole HCl) 4 Mg Tab.er.24h, 4 MG PO HS, TAB 11/02/21 Pregabalin (Pregabalin) 75 Mg Capsule, 75 MG PO BID, CAP 11/02/21 Meloxicam (Mobic) 15 Mg Tablet, 15 MG PO DAILY, TAB 11/02/21 Hydrocodone/Acetaminophen (Hydrocodone-Acetamin 7.5-325) 1 Each Tablet, 1 EACH PO TID PRN for PAIN-MODERATE (5-7), TAB 11/02/21 Glipizide (Glipizide ER) 2.5 Mg Tab, 2.5 MG PO DAILY, TAB 11/02/21 Diclofenac Sodium (Diclofenac Sodium) 75 Mg Tablet.dr, 75 MG PO BID, TAB 11/02/21 Carbidopa/Levodopa (Carbidopa-Levo 10-100 mg Odt) 1 Each Tab.rapdis, 2 EACH PO HS, TAB 11/02/21 Insulin Glargine,Hum.rec.anlog (Joshaglpriscilla Moorepen U-100) 100 Unit/1 Ml Insuln.pen, 55 UNIT SQ EVENING, EA 11/02/21 Aspirin (Aspirin EC) 81 Mg Tablet.dr, 81 MG PO DAILY, TAB 11/02/21 Allopurinol (Allopurinol) 300 Mg Tablet, 300 MG PO DAILY, TAB 11/02/21 Objective Exam L Hip: Leg lengths grossly equal, logroll positive, pain with any hip motion, +DF of ankle, peripheral pulses palpable Vital Signs Vital Signs Date Time Temp Pulse Resp B/P (MAP) Pulse Ox O2 Delivery O2 Flow Rate FiO2 08/05/22 12:33 36.6 71 18 138/82 (100) 96 Room Air 08/05/22 11:55 36.0 63 16 124/77 (93) 93 Room Air 08/05/22 08:00 36.0 75 16 119/86 (97) 96 Room Air 08/05/22 08:00 90 Room Air 08/05/22 04:00 36.7 72 15 157/91 (113) 95 Room Air 08/05/22 03:50 96 Room Air 08/05/22 03:29 83 20 150/82 97 Room Air 08/05/22 01:34 83 18 150/82 (104) 99 Room Air 08/04/22 21:58 36.2 83 22 160/89 (112) 96 Room Air I & O 08/05/22 07:00 Intake Total 230 ml Output Total 200 ml Balance 30 ml Lab Results Laboratory Tests 08/04/22 22:37: White Blood Count 7.6, Red Blood Count 4.71, Hemoglobin 14.6, Hematocrit 42, Mean Corpuscular Volume 89, Mean Corpuscular Hemoglobin 31, Mean Corpuscular Hemoglobin Concent 35, Red Cell Distribution Width 12.7, Platelet Count 205, Mean Platelet Volume 9.7, Immature Granulocyte % (Auto) 1, Neutrophils (%) (Auto) 53, Lymphocytes (%) (Auto) 31, Monocytes (%) (Auto) 8, Eosinophils (%) (Auto) 7, Basophils (%) (Auto) 1, Neutrophils # (Auto) 4.0, Lymphocytes # (Auto) 2.4, Monocytes # (Auto) 0.6, Eosinophils # (Auto) 0.5H, Basophils # (Auto) 0.1, Immature Granulocyte # (Auto) 0.0, D-Dimer 0.95H, Sodium Level 137, Potassium Level 3.9, Chloride Level 99, Carbon Dioxide Level 25, Anion Gap 13, Blood Urea Nitrogen 29H, Creatinine 1.82H, Estimat Glomerular Filtration Rate 41, BUN/Creatinine Ratio 16, Glucose Level 264H, Calcium Level 10.0, Corrected Calcium 9.8, Total Bilirubin 0.4, Aspartate Amino Transf (AST/SGOT) 28, Alanine Aminotransferase (ALT/SGPT) 40, Alkaline Phosphatase 135, C-Reactive Protein High Sensitivity 0.86H, Total Protein 7.6, Albumin 4.2 08/04/22 22:39: Glucometer 256H 08/05/22 05:15: White Blood Count 7.9, Red Blood Count 4.60, Hemoglobin 14.2, Hematocrit 41, Mean Corpuscular Volume 89, Mean Corpuscular Hemoglobin 31, Mean Corpuscular Hemoglobin Concent 35, Red Cell Distribution Width 12.9, Platelet Count 198, Me an Platelet Volume 9.9, Immature Granulocyte % (Auto) 1, Neutrophils (%) (Auto) 51, Lymphocytes (%) (Auto) 32, Monocytes (%) (Auto) 9, Eosinophils (%) (Auto) 7, Basophils (%) (Auto) 1, Neutrophils # (Auto) 4.0, Lymphocytes # (Auto) 2.5, Monocytes # (Auto) 0.7, Eosinophils # (Auto) 0.5H, Basophils # (Auto) 0.1, Immature Granulocyte # (Auto) 0.0, Sodium Level 139, Potassium Level 3.5L, Chloride Level 101, Carbon Dioxide Level 26, Anion Gap 12, Blood Urea Nitrogen 27H, Creatinine 1.45H, Estimat Glomerular Filtration Rate 54, BUN/Creatinine Ratio 19, Glucose Level 132H, Calcium Level 9.9 08/05/22 10:24: Glucometer 211H Imaging Views of the left hip and pelvis from 08/04/22 were reviewed from PACS and demonstrated severe osteoarthritis change with oblique fracture through the femoral head Assessment and Plan Assessment Left Femoral Head Fracture Left Hip Primary Osteoarthritis Problem List Left Femoral Head Fracture Left Hip Primary Osteoarthritis Plan I have recommended proceeding with L SKYLER sooner than the scheduled date. Will plan to proceed tomorrow in the PM. Discussed risks and benefits. Discussed nature of the procedure. Consent to be obtained. Final Diagonsis Left Femoral Head Fracture Left Hip Primary Osteoarthritis Level of the visit: Level 3 (preop global) SUASNNA COOPER MD Aug 05, 2022 14:50
[2022-08-05] MEDS: SINEMET 10/100 (CARBIDOPA/LEVADOPA) TAB PO SCH (15:39)
[2022-08-05] MEDS ORDERED: INSU100V16 SC (15:39)
[2022-08-05] MEDS ORDERED: OXYC1TAB15 PO (15:39)
[2022-08-05] MEDS ORDERED: CARB1TAB30 PO (15:39)
[2022-08-05] MEDS ORDERED: PRAS10TA10 PO (15:41)
[2022-08-06] VITALS (14 sets, daily range): BP systolic 100–170; BP diastolic 68–104
[2022-08-06] MEDS: fentaNYL INJ 100 MCG/2 ML AMP IV PRN ×9 (01:28→22:31)
[2022-08-06] MEDS: inSUlin ASPART (NovoLOG) 1 UNIT/0.01 ML (CHARGE PER UNIT) SC SCH ×4 (05:32→20:33)
[2022-08-06] MEDS: oxyCODONE/APAP 10/325MG (PERCOCET 10) TABLET PO PRN ×2 (05:32→17:24)
[2022-08-06] MEDS: SINEMET 10/100 (CARBIDOPA/LEVADOPA) TAB PO SCH ×2 (05:32→17:31)
[2022-08-06] MEDS: NS IV 1000 ML 1,000 ML IV SCH ×3 (07:57→17:26)
--- NOTE | 2022-08-06 09:35 | Progress Note - Hospitalist ---
Subjective HPI/CC On Admission Date Seen by Provider: Aug 06, 2022 Patient is a 61-year-old male with past medical history of insulin- dependent diabetes type 2, osteoarthritis, who presented to the emergency department due to left hip pain. He normally sees Dr. Arnett for his orthopedic care and is scheduled for hyper placement on the . Over the past week though he has had worsening pain and was unable to get out of his chair yesterday due to the pain. Because of this he did not take his insulin. He was found to be mildly hypoglycemic on arrival and imaging revealed a left hip fracture. He was admitted for further management. This morning he reports that he is doing well except for the pain and is hopeful for expedited surgery. Subjective/Events-last exam Pt reports doing well. Pain controlled. Only complaint is about the broken clock in his room. Objective Exam Vital Signs Vital Signs Date Time Temp Pulse Resp B/P (MAP) Pulse Ox O2 Delivery O2 Flow Rate FiO2 08/06/22 07:48 37.0 70 17 118/74 (89) 94 Room Air Capillary Refill : Less Than 3 Seconds General Appearance: No Apparent Distress, Chronically ill Respiratory: Lungs Clear, No Respiratory Distress Cardiovascular: Regular Rate, Rhythm, No Murmur Gastrointestinal: Normal Bowel Sounds, Non Tender, Soft Neurologic/Psychiatric: Alert, Oriented x3 Results/Procedures Lab Patient resulted labs reviewed. Imaging: Reviewed Imaging Report Assessment/Plan Assessment and Plan Assess & Plan/Chief Complaint left hip fracture Left hip osteoarthritis Dr Arnett consulted as is primary orthopedist Continue pain regimen OR today PT/OT postop IRF eval IDDMII Poorly controlled A1c 11 3 weeks ago with PCP Requested referral to yard caller Referral placed to Dr Rosado at [facility] spoke to catering barista there and they will call him to set up appointment Parkinson's Disease Continue Sinemet DVT ppx: SCDs until surgery Diagnosis/Problems Diagnosis/Problems (1) HLD (hyperlipidemia) (2) Hip fracture, left Status: Acute Qualifiers: Encounter type: initial encounter Fracture type: closed Qualified Codes: S72.002A - Fracture of unspecified part of neck of left femur, initial encounter for closed fracture (3) Uncontrolled type 2 diabetes mellitus with hyperglycemia Status: Acute (4) Coronary artery disease Status: Acute (5) Hypertension MAYITO BARAKAT MD Aug 06, 2022 09:35
[2022-08-06] MEDS ORDERED: TRANEXAMIC ACID 3,000 MG/150 ML NS IRRIGATION IR ONE ×2 (12:45)
[2022-08-06] MEDS ORDERED: ceFAZolin INJECTION 2,000 MG in NS (IVPB) 50 ML IV NR (13:00)
[2022-08-06] MEDS ORDERED: fentaNYL INJ 100 MCG/2 ML AMP ONE ×2 (13:44→16:23)
[2022-08-06] MEDS ORDERED: MIDAZOLAM 2 MG/2 ML (VERSED) VIAL ONE (13:44)
[2022-08-06] MEDS ORDERED: proPOfol 200 MG/20 ML (DIPRIVAN) VIAL IV ONE (13:46)
[2022-08-06] MEDS ORDERED: ONDANSETRON 4 MG/2 ML (SDV) Z0FRAN ONE (13:46)
[2022-08-06] MEDS ORDERED: LIDOCAINE PF 2% 5 ML (XYLOCAINE) VIAL ONE (13:46)
[2022-08-06] MEDS ORDERED: ROCURONIUM 10 MG/ML 5 ML SYRINGE IV ONE (13:46)
[2022-08-06] MEDS: LACTATED RINGERS 1,000 ML IV PRN ×2 (13:52→15:40)
[2022-08-06] MEDS ORDERED: SEVOFLURANE (ULTANE) 15 ML INHAL SOLN ONE ×2 (15:07→15:26)
[2022-08-06] MEDS ORDERED: TRANEXAMIC ACID 100 MG/ML 10 ML INJECTION ONE (15:29)
[2022-08-06] MEDS ORDERED: fentaNYL INJ 100 MCG/2 ML AMP IVP ONE (16:00)
[2022-08-06] MEDS ORDERED: morphine INJ 10 MG/ML 1ML (SYR OR VIAL) IVP ONE (16:00)
[2022-08-06] MEDS ORDERED: ONDANSETRON 4 MG/2 ML (SDV) Z0FRAN IVP PRN (16:00)
[2022-08-06] MEDS ORDERED: MEPERIDINE (DEMEROL) INJ 50 MG/ML IVP ONE (16:00)
--- NOTE | 2022-08-06 16:08 | Operative Report - Ortho ---
Operative Report Surgeon (s)/Hand Roller Engraver (s) Surgeon SUSANNA COOPER MD Hand Roller Engraver n/a Pre-Operative Diagnosis Left Femoral Head Fracture/Left Hip Primary Osteoarthritis Post-Operative Diagnosis same Operative Report Date of Procedure: Aug 06, 2022 Name of Procedure Performed: Left Total Hip Arthroplasty Description & Findings After obtaining informed consent and marking the patient in the preoperative holding area, the patient did receive antibiotics and was taken to the operating room. General anesthesia was induced and patient was positioned in the lateral decubitus position with the left side up. Left lower extremity was prepped and draped in the usual sterile fashion. Surgical timeout was taken. Posterolateral approach was utilized. Capsule and external rotators were taken down in one layer. Hip was dislocated without difficulty. Femoral neck osteotomy was performed and femoral head was removed. Acetabulum was exposed. Labrum and soft tissue was removed from the acetabulum. Sequential reaming was began beginning with a 48 mm reamer and reaming to a 54 mm. 54 mm trial was placed and had good fit. Trial was removed and the acetabulum was lavaged with normal saline; a 54 mm cup was impacted into place and had excellent press fit. A polyethylene liner was put into place and impacted to lock; locking was verified with a freer. Attention was turned to the femoral side, a cookie cutter osteotome was used to removed bone near the greater trochanter. Canal finder was inserted followed by the lateralizing reamer. Sequential broaching was began with a 0 and was broac hed to a 4. Trial 132 degree neck and -2.5 mm [address] head were put into place. Leg lengths were grossly equal; the hip was stable in position of sleep, and stable in flexion and internal rotation but tight. Trial head was exhanged to a -5 mm head and this improved all of the parameters. This was accepted. Hip was dislocated. Trial components were removed and the canal was irrigated. A size 4 Accolade II was impacted into place and set at the same level as the broach. A -5 36 mm ceramic head was impacted onto the combs taper of the stem. Hip was once again located and found to have grossly equal leg lengths with stability in position of sleep as well as flexion and internal rotation. Hip was irrigated. Tranexamic acid was administered IV for hemostasis. The fascial layer was closed with #2 StrataFix. The subcutaneous layer was closed with 2-0 Vicryl. Skin was closed with kasia. Wound was dressed with xeroform, 4x4s, ABD, and tape. Patient was placed in abduction pillow and transferred to a hospital bed without difficulty and was stable to the recovery room. Anesthesia Type General Estimated Blood Loss 500 ml Specimen(s) collected/removed None SUSANNA COOPER MD Aug 06, 2022 16:08
[2022-08-06] MEDS ORDERED: morphine INJ 10 MG/ML 1ML (SYR OR VIAL) ONE (16:11)
[2022-08-06] MEDS ORDERED: ONDANSETRON 4 MG/2 ML (SDV) Z0FRAN IV PRN (16:15)
[2022-08-06] MEDS ORDERED: ACETAMINOPHEN 500 MG TAB (TYLENOL) PO PRN (16:15)
[2022-08-06] MEDS ORDERED: MEPERIDINE (DEMEROL) INJ 50 MG/ML ONE (16:49)
--- NOTE | 2022-08-06 17:02 | Diagnostic Imaging Report ---
EXAMINATION: Pelvis 1 or 2 views. HISTORY: Postop. COMPARISON: 08/04/2022. FINDINGS: There are postsurgical changes of bilateral total hip arthroplasty. There is postsurgical gas and skin kasia associated with the left hip. The components are in the expected position. No acute fracture is seen. IMPRESSION: 1. Expected postsurgical changes of left total hip arthroplasty. Dictated by: Dictated on workstation # [id number]
[2022-08-06] MEDS: CYCLOBENZAPRINE 10 MG (FLEXERIL) TAB PO PRN (17:24)
[2022-08-06] MEDS ORDERED: ceFAZolin INJECTION 2,000 MG in NS (IVPB) 50 ML IV SCH (20:15)
[2022-08-06] MEDS: ceFAZolin INJECTION 2,000 MG in NS (IVPB) 50 ML IV SCH (20:33)
[2022-08-07] MEDS: oxyCODONE/APAP 10/325MG (PERCOCET 10) TABLET PO PRN ×4 (00:09→18:59)
[2022-08-07] MEDS: NS IV 1000 ML 1,000 ML IV SCH ×2 (01:02→08:24)
[2022-08-07] MEDS: fentaNYL INJ 100 MCG/2 ML AMP IV PRN ×15 (02:46→23:22)
[2022-08-07] MEDS: ceFAZolin INJECTION 2,000 MG in NS (IVPB) 50 ML IV SCH (02:47)
[2022-08-07 03:55] VITALS: BP 154/79
[2022-08-07] MEDS: inSUlin ASPART (NovoLOG) 1 UNIT/0.01 ML (CHARGE PER UNIT) SC SCH ×4 (05:31→21:07)
[2022-08-07 06:14] LABS: HEMOGLOBIN 14.1 g/dL (13.3-17.7)
[2022-08-07] MEDS: SINEMET 10/100 (CARBIDOPA/LEVADOPA) TAB PO SCH ×2 (06:16→15:40)
--- NOTE | 2022-08-07 07:58 | Anesthesia-General Post-Op ---
General Patient Condition Mental Status/LOC: Same as Preop Cardiovascular: Satisfactory Nausea/Vomiting: Absent Respiratory: Satisfactory Pain: Controlled Complications: Absent Post Op Complications Complications None Follow Up Care/Instructions Patient Instructions None needed. Anesthesia/Patient Condition Patient Condition Patient is doing well, no complaints, stable vital signs, no apparent adverse anesthesia problems. No complications reported per nursing. SUSANNA MARTINEZ CRNA Aug 07, 2022 07:58
--- NOTE | 2022-08-07 08:20 | Progress Note - Ortho ---
Progress Note Subjective Date of Exam 08/07/22 Chief Complaint POD #1 L SKYLER HPI/Events since last exam pain controlled on combination of IV and oral pain medication, states feels better today than prior to surgery, anxious to go home Review of Systems - Allergies: Coded Allergies: Pyyyggt-GEJ-GtP Reductase Inhibitor (Verified Adverse Reaction, Unknown, muscle aches, 08/05/22) Home Meds Reported Medications Prasugrel HCl (Prasugrel HCl) 10 Mg Tablet, 10 MG PO HS, TAB 08/05/22 Oxycodone HCl/Acetaminophen (Oxycodon-Acetaminophen 7.5-325) 7.5 Mg-325 Mg Tablet, 1 EA PO Q6H PRN for PAIN-MODERATE (5-7), TAB 08/05/22 Insulin Aspart (Novolog) 100 Unit/Ml Susp, 15 UNITS SC BIDAC, EA 08/05/22 Carbidopa/Levodopa (Carbidopa-Levodopa 10-100 Tab) 10 Mg-100 Mg Tablet, 2 EA PO HS, TAB 08/05/22 Sertraline HCl (Sertraline HCl) 50 Mg Tablet, 50 MG PO HS, TAB 11/02/21 Ropinirole HCl (Ropinirole HCl) 4 Mg Tab.er.24h, 4 MG PO HS, TAB 11/02/21 Pregabalin (Pregabalin) 75 Mg Capsule, 75 MG PO BID, CAP 11/02/21 Diclofenac Sodium (Diclofenac Sodium) 75 Mg Tablet.dr, 75 MG PO BID, TAB 11/02/21 Insulin Glargine,Hum.rec.anlog (Basaglar Kwikpen U-100) 100 Unit/Ml (3 Ml) Insuln.pen, 60 UNIT SQ HS, EA 11/02/21 Allopurinol (Allopurinol) 300 Mg Tablet, 300 MG PO DAILY, TAB 11/02/21 Discontinued Reported Medications Tramadol HCl (Tramadol HCl) 50 Mg Tablet, 50 MG PO BID, TAB 11/02/21 Silver Sulfadiazine (Silvadene) 20 Gm Cream..g., 1 % TP BID, EA 11/02/21 Meloxicam (Mobic) 15 Mg Tablet, 15 MG PO DAILY, TAB 11/02/21 Hydrocodone/Acetaminophen (Hydrocodone-Acetamin 7.5-325) 1 Each Tablet, 1 EACH PO TID PRN for PAIN-MODERATE (5-7), TAB 11/02/21 Glipizide (Glipizide ER) 2.5 Mg Tab, 2.5 MG PO DAILY, TAB 11/02/21 Carbidopa/Levodopa (Carbidopa-Levo 10-100 mg Odt) 1 Each Tab.rapdis, 2 EACH PO HS, TAB 11/02/21 Aspirin (Aspirin EC) 81 Mg Tablet.dr, 81 MG PO DAILY, TAB 11/02/21 Discontinued Scripts Atorvastatin Calcium (Atorvastatin Calcium) 20 Mg Tablet, 20 MG PO HS, #30 TAB 3 Refills Prov:GRICEL HUERTAS MD 11/03/21 Clopidogrel Bisulfate (Clopidogrel) 75 Mg Tablet, 75 MG PO DAILY, #30 TAB 6 Refills Prov:GRICEL HUERTAS MD 11/03/21 Metformin HCl (Metformin HCl) 1,000 Mg Tablet, 1000 MG PO DAILY, #1 TAB Hold Metformin for 48 hours Prov:GRICEL HUERTAS MD 11/03/21 Objective Exam L Hip: Dressing C/D/I, +DF of ankle, no s/s of DVT Vital Signs Vital Signs Date Time Temp Pulse Resp B/P (MAP) Pulse Ox O2 Delivery O2 Flow Rate FiO2 08/07/22 03:55 37.1 101 19 154/79 (104) 92 Room Air 08/06/22 23:55 35.8 97 18 170/104 (126) 96 Room Air 08/06/22 20:12 36.3 97 20 134/78 (96) 99 Nasal Cannula 3.00 08/06/22 20:00 Nasal Cannula 2.00 08/06/22 17:00 Nasal Cannula 3.00 08/06/22 17:00 36.3 20 124/82 (96) 96 Nasal Cannula 3.00 08/06/22 16:59 36.4 84 22 155/86 (109) 100 Nasal Cannula 3.00 08/06/22 16:50 20 125/84 (98) 96 Nasal Cannula 3.00 08/06/22 16:45 Nasal Cannula 3.00 08/06/22 16:40 20 132/86 (101) 97 Nasal Cannula 3.00 08/06/22 16:30 20 115/79 (91) 96 OxyMask 4.00 08/06/22 16:30 OxyMask 4.00 08/06/22 16:20 20 133/84 (100) 98 OxyMask 4.00 08/06/22 16:15 OxyMask 10.00 08/06/22 16:10 20 124/86 (99) 100 OxyMask 10.00 08/06/22 16:00 20 119/72 (88) 100 OxyMask 10.00 08/06/22 16:00 OxyMask 10.00 08/06/22 15:57 OxyMask 10.00 08/06/22 15:57 36.3 20 100/68 (79) 100 OxyMask 10.00 08/06/22 11:31 36.3 67 19 130/77 (94) 97 Room Air I & O 08/07/22 07:00 Intake Total 1900 ml Output Total 4200 ml Balance -2300 ml Lab Results Laboratory Tests 08/06/22 10:45: Glucometer 202H 08/06/22 16:05: Glucometer 128H 08/06/22 20:18: Glucometer 226H 08/07/22 05:19: Glucometer 174H 08/07/22 05:38: Hemoglobin 14.1, Hematocrit 41 Imaging postop AP pelvis was reviewed and demonstrated left total hip arthroplasty with components in good position and no complication, prior R SKYLER unchanged Assessment and Plan Assessment Left Femoral Head Fracture/Left Hip Primary Osteoarthritis s/p L SKYLER Problem List Left Femoral Head Fracture/Left Hip Primary Osteoarthritis s/p L SKYLER Plan PT/OT DVT Prophyalxis If pain controlled on oral medication, does well with therapy, and discharge arrangements are made, could potentially go home this afternoon. More likely to be ready in AM. Final Diagonsis Left Femoral Head Fracture/Left Hip Primary Osteoarthritis s/p L SKYLER Level of the visit: Level 3 (postop global) SUSANNA COOPER MD Aug 07, 2022 08:20
[2022-08-07 08:40] VITALS: BP 127/92
--- NOTE | 2022-08-07 09:56 | Occupational Therapy Eval ---
OT Evaluation-General/PLF Medical Diagnosis Admission Date Aug 04, 2022 at 22:58 Medical Diagnosis: L SKYLER Onset Date: Aug 04, 2022 Therapy Diagnosis Therapy Diagnosis: reduced adl status Precautions Precautions/Isolations: Fall Prevention, Standard Precautions Comments total hip precautions Weight Bear Status Weight Bearing Restriction: Weight Bearing/Tolerated Referral Referral Reason: Evaluation/Treatment Medical History Current History Pt presented to hospital after experiencing a fall in the bathtub. Found to have femoral head fx. Post op day 1 SKYLER. Per patient, he lives with his in a single story home. He states he was indep with adls prior to admission. Pt already owns a paving stone installer, sock aid, walker and commode. Reviewed History: Yes Social History Home: Single Level Current Living Status: Spouse Steps Into Home: 3 ADL-Prior Level of Function SCALE: Activities may be completed with or without assistive devices. 4-Xlliancapm-dmfjobg completes the activity by him/herself with no assistance from a helper. 5-Set-up or Clean-up Assistance-helper sets up or cleans up; patient completes activity. [place] assists only prior to or following the activity. 4-Supervision or Touching Assistance-helper provides verbal cues and/or to uching/steadying and/or contact guard assistance as patient completes activity. Assistance may be provided throughout the activity or intermittently. 3-Partial/Moderate Assistance-helper does LESS THAN HALF the effort. [place] lifts, holds or supports trunk or limbs, but provides less than half the effort. 2-Substantial/Maximal Assistance-helper does MORE THAN HALF the effort. [place] lifts or holds trunk or limbs and provides more than half the effort. 5-Cimgfvfvy-widrgi does ALL the effort. Patient does none of the effort to complete the activity. Or, the assistance of 2 or more helpers is required for the patient to complete the activity. If activity was not attempted, code reason: 7-Patient Refused. 9-Not Applicable-not attempted and the patient did not perform the activity before the current illness, exacerbation or injury. 10-Not Attempted due to Environmental Limitations-(lack of equipment, weather restraints, etc.). 88-Not Attempted due to Medical Conditions or Safety Concerns. Self Care: Independent Functional Cognition: Independent DME/Equipment: Grab Bars, Tub/Shower OT Current Status Subjective Pt reports pain as 7/10 in L hip but wants to try and "wean off pain meds" Reminders given on hip precautions Appearance Pt returned to sitting in recliner, all needs within reach at OT departure. Mental Status/Objective Patient Orientation: Person, Place, Situation Attachments: IV (RN disconnected during evaluation ) Current Glasses/Contacts: Yes Hand Dominance: Right Upper Extremity ROM WFL Upper Extremity Strength WFL ADL-Treatment Eating (QC): 6 Oral Hygiene (QC): 5 Lower Body Dressing (QC): 4 On/Off Footwear (QC): 5 Toileting Hygiene (QC): 4 Pt sitting in recliner at OT arrival. He reports having a R SKYLER years ago and still owns all equipment (commode, paving stone installer, sock aid, LHSH, walker). Pt had own paving stone installer with him during evaluation. He was able to demonstrate donning bilateral socks with use of sock aid without cues. Extra time and use of paving stone installer to thread feet. Cues for breathing management as pt appears to hold breath secondary to pain. He stood with SBA. Steady on feet. Pt declines using toilet as he reports he just previously used it. RN reports patient was able to manage clothing and complete all steps of toileting with supervision. Pt is agreeable to short term OT to increase endurance, independence in adls and functional transfers. Education OT Patient Education: Correct positioning OT Sales Development Representative Goals Snf Goals Time Frame: Aug 10, 2022 Eating (QC): 6 Oral Hygiene (QC): 6 Toileting Hygiene (QC): 6 Shower/Bathe Self (QC): 4 Upper Body Dressing (QC): 5 Lower Body Dressing (QC): 5 On/Off Footwear (QC): 6 Additional Goals: 1-Demonstrate ADL Tasks, 2-Verbalize Understanding, 3- ImproveStrength/Magaly 1=Demonstrate adherence to instructed precautions during ADL tasks. 2=Patient will verbalize/demonstrate understanding of assistive devices/modifications for ADL. 3=Patient will improve strength/tolerance for activity to enable patient to perform ADL's. OT Education/Plan Problem List/Assessment Assessment: Decreased Activ Tolerance, Impaired Funct Balance, Impaired I ADL's, Impaired Self-Care Skills Discharge Recommendations Plan/Recommendations: Continue POC Target Placement Home health vs home with family support Treatment Plan/Plan of Care Treatment,Training & Education: Yes Patient would benefit from OT for education, treatment and training to promote independence in ADL's, mobility, safety and/or upper extremity function for ADL's. Plan of Care: ADL Retraining, Functional Mobility, UE Funct Exercise/Act Treatment Duration: Aug 10, 2022 Frequency: 5 times per week Estimated Hrs Per Day: .25 hour per day Agreement: Yes Rehab Potential: Good Time Start Time: 09:32 Stop Time: 09:46 DATE: Aug 07, 2022 Total Time Billed (hr/min): 14 Billed Treatment Time 1 visit Florencia Hernandez OT Aug 07, 2022 09:56
--- NOTE | 2022-08-07 11:09 | Physical Therapy Evaluation ---
PT Evaluation-General Medical Diagnosis Admission Date Aug 04, 2022 at 22:58 Medical Diagnosis: L SKYLER Onset Date: Aug 04, 2022 Therapy Diagnosis Therapy Diagnosis: impaired mobility Precautions Precautions/Isolations: Fall Prevention, Standard Precautions Weight Bear Status Left Lower Extremity: Left Weight Bearing/Tolerated Referral Physician: Hope Reason for Referral: Evaluation/Treatment Medical History Additional Medical History Past Medical History Surgeries: Coronary Stent, Orthopedic (back, carpal tunnel, right hip replaced) Sleep Apnea Currently Using CPAP: No Currently Using BIPAP: No Coronary Artery Disease, High Cholesterol, Hypertension Concussion Gastroesophageal Reflux Diabetes, Non-Insulin dep Reviewed History: Yes Social History Home: Single Level Current Living Status: Spouse Entry Into Home: Stairs With Railing PT Steps Into Home: 2 Prior Prior Level of Function SCALE: Activities may be completed with or without assistive devices. 3-Aoyrhpiiap-sbplcch completes the activity by him/herself with no assistance from a helper. 5-Set-up or Clean-up Assistance-helper sets up or cleans up; patient completes activity. [place] assists only prior to or following the activity. 4-Supervision or Touching Assistance-helper provides verbal cues and/or touching/steadying and/or contact guard assistance as patient completes activity. Assistance may be provided throughout the activity or intermittently. 3-Partial/Moderate Assistance-helper does LESS THAN HALF the effort. [place] lifts, holds or supports trunk or limbs, but provides less than half the effort. 2-Substantial/Maximal Assistance-helper does MORE THAN HALF the effort. [place] lifts or holds trunk or limbs and provides more than half the effort. 4-Gzngfpmet-sczdou does ALL the effort. Patient does none of the effort to complete the activity. Or, the assistance of 2 or more helpers is required for the patient to complete the activity. If activity was not attempted, code reason: 7-Patient Refused. 9-Not Applicable-not attempted and the patient did not perform the activity before the current illness, exacerbation or injury. 10-Not Attempted due to Environmental Limitations-(lack of equipment, weather restraints, etc.). 88-Not Attempted due to Medical Conditions or Safety Concerns. Bed Mobility: 6 Transfers (B,C,W/C): 6 Gait: 6 Stairs: 6 Indoor Mobility (Ambulation): Independent Stairs: Independent Prior Devices Use: Walker PT Evaluation-Current Subjective Patient in recliner pre tx, agrees to PT, has 7/10 pain in left hip, nurse gives him pain meds. Pt/Family Goals "to go home" Objective Patient Orientation: Person, Place, Situation Sensory Vision: Wears Glasses Hearing: Functional Hand Dominance: Right Sensation Right Lower Extremit: Impaired Sensation Left Lower Extremity: Impaired Transfers Sit to Stand (QC): 4 Chair/Bpy-vi-Oebuq Xfer(QC): 4 CGA, needs extra time due to pain Gait Does the Patient Walk?: Yes Mode of Locomotion: Walk Anticipated Mode of Locomotion: Walk Walk 10 feet (QC): 4 Walk 50 ft with 2 Turns(QC): 4 Distance: 100' Gait Assistive Device: FWW Comments/Gait Description CGA, slow, antalgic, good step-through and foot clearance, no LOB Balance Sitting Static: Normal Sitting Dynamic: Normal Standing Static: Good Standing Dynamic: Good Treatment LLE seated exercises x15 (AP, LAQ), with legs elevated x15 (QS, GS) Assessment/Needs Patient in recliner post tx with nurse call, phone, tray, all needs met. Patient has impaired mobility, pain, needs CGA for transfers and ambulation, educated patient on hip precautions Rehab Potential: Fair PT Waste Hand Goals Waste Hand Goals PT Skilled Nursing Goals Time Frame: Aug 14, 2022 Roll Left & Right (QC): 6 Sit to Lying (QC): 6 Lying-Sitting on Side/Bed(QC): 6 Sit to Stand (QC): 6 Chair/Pvi-br-Bapib Xfer(QC): 6 Walk 10 feet (QC): 6 Walk 50ft with 2 Turns (QC): 6 Walk 150 ft (QC): 6 PT Plan Problem List Problem List: Activity Tolerance, Functional Strength, Safety, Balance, Gait, Transfer, Bed Mobility, ROM Treatment/Plan Treatment Plan: Continue Plan of Care Treatment Plan: Bed Mobility, Education, Functional Activity Magaly, Functional Strength, Gait, Safety, Therapeutic Exercise, Transfers Treatment Duration: Aug 14, 2022 Frequency: 11 times per week Estimated Hrs Per Day: .25 hour per day Patient and/or Family Agrees t: Yes Safety Risks/Education Patient Education: Gait Training, Transfer Techniques, Reviewed Precautions, Correct Positioning, Safety Issues Teaching Recipient: Patient Teaching Methods: Demonstration, Discussion Response to Teaching: Reinforcement Needed Discharge Recommendations Plan Patient will perform bed mobility and transfer training, balance and endurance training, functional strengthening, gait training, stair training, and education, to improve functional mobility and independence at home. Therapy Discharge Recommendati: Home & Family, Post Acute PT Time Time In: 1020 Time Out: 1042 DATE: Aug 14, 2022 Total Billed Treatment Time: 22 Total Billed Treatment 1 visit EVL 22' LINDSAY FOSTER PT Aug 07, 2022 11:08
--- NOTE | 2022-08-07 11:54 | D/C HH Face to Face Order ---
D/C Face to Face Orders Instructions for Patient Via [facility], Patient Instructions/FollowUp: Please continue to take your medications as written. Please follow up with your primary care doctor and with Dr Arnett as scheduled to follow up this hospital stay. Physician to follow Patient: Dr Peralta Discharge Diet for Home: ADA Diet Patient Data-Allergies,Ht & Wt Patient Allergies: Coded Allergies: Pmxlwrt-ZPD-BzK Reductase Inhibitor (Verified Adverse Reaction, Unknown, muscle aches, 08/05/22) Home Health Need/Face to Face Date of Face to Face: Aug 07, 2022 Clinical Findings: Generalized weakness and fatigue, Unsteady gait I have seen Pt bpru-he-xndy: Yes Discharged To: Home Diagnosis/Conditions: Hip fracture Patient is Homebound due to: Maris fall risk due to instabilty, Pain w/ambulation Homebound Status Due to the above stated illness, injury or surgical procedure (medical condition or diagnosis) and associated clinical findings, the patient is homebound because of his/her inability to leave home except with aid of a supportive device and/or person AND leaving the home requires a considerable and taxing effort or is medically contraindicated. Pt req the following assistanc: Aid of another person, Walker Home Health Nursing Orders Home Health Services Order: Nursing Services, Tenant Coordinator-Evaluate & Treat, Physical Therapy-Evaluate & Treat Home Health Infusion Therapy Line Start Date: Aug 04, 2022 Therapy Orders Therapy Orders: OT (must have SN or PT order), Physical Therapy Therapy Specific Orders: Eval assistive deivces, Teach enviro modifications/safety, Gait training, Increase strength/endurance Certify Stmt I certify that this patient is under my care and that I, a nurse practitioner or a physician; a lens assistant working with me, had a face to face encounter that - meets the physician face to face encounter requirements with this patient as dated. MAYITO BARAKAT MD Aug 07, 2022 11:54 am
[2022-08-07 12:32] VITALS: BP 131/72
[2022-08-07] MEDS: CYCLOBENZAPRINE 10 MG (FLEXERIL) TAB PO PRN (13:40)
--- NOTE | 2022-08-07 14:32 | Physical Therapy Daily Note ---
PT Daily Note-Current Subjective Pt found seated in recliner upon entry. Agreed to PT. Reports that he just now got his pain under control. States that it has been hurting since last PT visit. Pt reports that he has two 8 inch steps to get into his house. Does not rate pain. Pain Section J - Health Conditions 1. Rarely or not at all 2. Occasionally 3. Frequently 4. Almost constantly 8. Unable to answer Pain Effect on Sleep: 1 Pain Interference with Therapy: 1 Pain Interference w/Day-to-Day: 1 Mental Status Patient Orientation: Normal For Age Transfers SCALE: Activities may be completed with or without assistive devices. 9-Hpqlqvcbap-vxneqce completes the activity by him/herself with no assistance f rom a helper. 5-Set-up or Clean-up Assistance-helper sets up or cleans up; patient completes activity. [place] assists only prior to or following the activity. 4-Supervision or Touching Assistance-helper provides verbal cues and/or touching/steadying and/or contact guard assistance as patient completes activity. Assistance may be provided throughout the activity or intermittently. 3-Partial/Moderate Assistance-helper does LESS THAN HALF the effort. Adams lifts, holds or supports trunk or limbs, but provides less than half the effort. 2-Substantial/Maximal Assistance-helper does MORE THAN HALF the effort. Adams lifts or holds trunk or limbs and provides more than half the effort. 7-Zfuoggfuu-vpzipe does ALL the effort. Patient does none of the effort to complete the activity. Or, the assistance of 2 or more helpers is required for the patient to complete the activity. If activity was not attempted, code reason: 7-Patient Refused. 9-Not Applicable-not attempted and the patient did not perform the activity before the current illness, exacerbation or injury. 10-Not Attempted due to Environmental Limitations-(lack of equipment, weather restraints, etc.). 88-Not Attempted due to Medical Conditions or Safety Concerns. Sit to Stand (QC): 6 Toilet Transfer (QC): 6 Pt independent /c all trfs. Weight Bearing Left Lower Extremity: Left Weight Bearing/Tolerated Gait Training Does the Patient Walk?: Yes Distance: 200 Walk 10 feet (QC): 6 Walk 50 ft with 2 Turns(QC): 6 Walk 150 ft (QC): 6 Gait Persons Needed: 1 Gait Assistive Device: FWW Pt independent /c gait training. Amb. 200ft total. Wheelchair Training Does the Pt Use a Wheelchair?: No Exercises Seated Therapy Exercises: Ankle pumps, Long arc quads Seated Reps: 15 Pt tolerated exercise well /c no report of increased pain. Assessment Current Status: Good Progress Pt tolerated Tx well. No report of increased pain post-Tx. Pt and pt were educated on home exercises that would be appropriate to complete at home. Continue to progress pt as tolerated to decrease pain, increase endurance, and increase functional ability. 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 Group Home Goals 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 Time Frame: Aug 14, 2022 Roll Left & Right (QC): 6 Sit to Lying (QC): 6 Lying-Sitting on Side/Bed(QC): 6 Sit to Stand (QC): 6 Chair/Gts-bh-Nbxsz Xfer(QC): 6 Walk 10 feet (QC): 6 Walk 50ft with 2 Turns (QC): 6 Walk 150 ft (QC): 6 PT Plan Treatment/Plan Treatment Plan: Continue Plan of Care Treatment Plan: Bed Mobility, Education, Functional Activity Magaly, Functional Strength, Gait, Safety, Therapeutic Exercise, Transfers Treatment Duration: Aug 14, 2022 Frequency: 11 times per week Estimated Hrs Per Day: .25 hour per day Patient and/or Family Agrees t: Yes Time Time In: 1340 Time Out: 1404 DATE: Aug 07, 2022 Total Billed Treatment Time: 24 Total Billed Treatment 1 visit GT 1x EX 1x SOPHIA MONTIEL TAR MAN Aug 07, 2022 14:32
[2022-08-07] MEDS ORDERED: ENOXAPARIN 40 MG/0.4 ML (LOVENOX) SYR SQ SCH (15:00)
--- NOTE | 2022-08-07 15:01 | Progress Note - Hospitalist ---
Subjective HPI/CC On Admission Date Seen by Provider: Aug 07, 2022 Patient is a 61-year-old male with past medical history of insulin- dependent diabetes type 2, osteoarthritis, who presented to the emergency department due to left hip pain. He normally sees Dr. Arnett for his orthopedic care and is scheduled for hyper placement on the . Over the past week though he has had worsening pain and was unable to get out of his chair yesterday due to the pain. Because of this he did not take his insulin. He was found to be mildly hypoglycemic on arrival and imaging revealed a left hip fracture. He was admitted for further management. This morning he reports that he is doing well except for the pain and is hopeful for expedited surgery. Subjective/Events-last exam Saw patient earlier this morning. He was hopeful for discharge home if able to tolerate pain with oral meds. Has since worked with PT and while ambulated 100 ft has need IV pain meds frequently. Objective Exam Vital Signs Vital Signs Date Time Temp Pulse Resp B/P (MAP) Pulse Ox O2 Delivery O2 Flow Rate FiO2 08/07/22 12:32 37.6 99 20 131/72 (91) 100 Room Air 08/06/22 20:12 3.00 Capillary Refill : Less Than 3 SecondsLess Than 3 Seconds General Appearance: No Apparent Distress Respiratory: Lungs Clear, No Respiratory Distress Cardiovascular: Regular Rate, Rhythm, No Murmur Gastrointestinal: Normal Bowel Sounds, Non Tender, Soft Neurologic/Psychiatric: Alert, Oriented x3 Results/Procedures Lab Laboratory Tests 08/07/22 05:38 Patient resulted labs reviewed. Imaging: Reviewed Imaging Report Assessment/Plan Assessment and Plan Assess & Plan/Chief Complaint left hip fracture Left hip osteoarthritis Dr Arnett consulted as is primary orthopedist Continue pain regimen POD #1 PT/OT Patient preferring to go home, home health ordered Hopefully home tomorrow if pain improved IDDMII Poorly controlled A1c 11 3 weeks ago with PCP Requested referral to religious studies professor Referral placed to Dr Rosado at [facility] spoke to curriculum development manager there and they will call him to set up appointment Parkinson's Disease Continue Sinemet DVT ppx: Lovenox Diagnosis/Problems Diagnosis/Problems (1) HLD (hyperlipidemia) (2) Hip fracture, left Status: Acute Qualifiers: Encounter type: initial encounter Fracture type: closed Qualified Codes: S72.002A - Fracture of unspecified part of neck of left femur, initial encounter for closed fracture (3) Uncontrolled type 2 diabetes mellitus with hyperglycemia Status: Acute (4) Coronary artery disease Status: Acute (5) Hypertension MAYITO BARAKAT MD Aug 07, 2022 15:00
[2022-08-07 16:00] VITALS: BP 102/63
[2022-08-07] MEDS: ASPIRIN E.C. 81 MG (ECOTRIN) TAB PO SCH (17:48)
[2022-08-07 19:28] VITALS: BP 134/84
[2022-08-07] MEDS: PREGABALIN 75 MG (LYRICA) CAP PO SCH (19:52)
[2022-08-07] MEDS: ETODOLAC 300 MG (LODINE) CAP PO SCH (19:53)
[2022-08-07] MEDS ORDERED: rOPINIRole 1 MG (REQUIP) TABLET PO SCH (21:00)
[2022-08-07] MEDS ORDERED: NON-FORMULARY MEDICATION 1 EA EA (Diclofenac Sodium 75 MG) PO SCH (21:00)
[2022-08-07] MEDS ORDERED: SERTRALINE 50 MG (ZOLOFT) TABLET PO SCH (21:00)
[2022-08-07 23:40] VITALS: BP 121/71
[2022-08-08] MEDS: CYCLOBENZAPRINE 10 MG (FLEXERIL) TAB PO PRN (01:35)
[2022-08-08] MEDS: NS IV 1000 ML 1,000 ML IV SCH (01:35)
[2022-08-08] MEDS: fentaNYL INJ 100 MCG/2 ML AMP IV PRN ×2 (01:36→05:51)
[2022-08-08] MEDS: oxyCODONE/APAP 10/325MG (PERCOCET 10) TABLET PO PRN ×2 (01:39→08:03)
[2022-08-08 03:20] VITALS: BP 129/82
[2022-08-08] MEDS: inSUlin ASPART (NovoLOG) 1 UNIT/0.01 ML (CHARGE PER UNIT) SC SCH ×2 (05:49→12:12)
[2022-08-08] MEDS: SINEMET 10/100 (CARBIDOPA/LEVADOPA) TAB PO SCH (05:49)
[2022-08-08 06:44] LABS: HEMATOCRIT 39 % (40-54); HEMOGLOBIN 13.5 g/dL (13.3-17.7); MEAN CORPUSCULAR HEMOGLOBIN 32 pg (25-34); MEAN CORPUSCULAR HGB CONC 35 g/dL (32-36); MEAN CORPUSCULAR VOLUME 90 fL (80-99); MEAN PLATELET VOLUME 10.4 fL (9.0-12.2); PLATELET COUNT 172 10^3/uL (130-400); WHITE BLOOD COUNT 7.4 10^3/uL (4.3-11.0)
[2022-08-08 07:01] LABS: POTASSIUM 3.8 MMOL/L (3.6-5.0)
[2022-08-08 07:03] LABS: CALCIUM 9.7 MG/DL (8.5-10.1)
[2022-08-08 07:07] LABS: CREATININE SERUM 1.14 MG/DL (0.60-1.30)
[2022-08-08 08:00] VITALS: BP 149/71
[2022-08-08] MEDS: PREGABALIN 75 MG (LYRICA) CAP PO SCH (08:03)
[2022-08-08] MEDS: ASPIRIN E.C. 81 MG (ECOTRIN) TAB PO SCH (08:03)
[2022-08-08] MEDS: ETODOLAC 300 MG (LODINE) CAP PO SCH (08:03)
--- NOTE | 2022-08-08 08:29 | Progress Note - Ortho ---
Progress Note Subjective Date of Exam 08/08/22 Chief Complaint POD #2 L SKYLER HPI/Events since last exam pain better, progressing well with therapy Review of Systems - Allergies: Coded Allergies: Ugdefpo-JFD-QcJ Reductase Inhibitor (Verified Adverse Reaction, Unknown, muscle aches, 08/05/22) Home Meds Reported Medications Prasugrel HCl (Prasugrel HCl) 10 Mg Tablet, 10 MG PO HS, TAB 08/05/22 Oxycodone HCl/Acetaminophen (Oxycodon-Acetaminophen 7.5-325) 7.5 Mg-325 Mg Tablet, 1 EA PO Q6H PRN for PAIN-MODERATE (5-7), TAB 08/05/22 Insulin Aspart (Novolog) 100 Unit/Ml Susp, 15 UNITS SC BIDAC, EA 08/05/22 Carbidopa/Levodopa (Carbidopa-Levodopa 10-100 Tab) 10 Mg-100 Mg Tablet, 2 EA PO HS, TAB 08/05/22 Sertraline HCl (Sertraline HCl) 50 Mg Tablet, 50 MG PO HS, TAB 11/02/21 Ropinirole HCl (Ropinirole HCl) 4 Mg Tab.er.24h, 4 MG PO HS, TAB 11/02/21 Pregabalin (Pregabalin) 75 Mg Capsule, 75 MG PO BID, CAP 11/02/21 Diclofenac Sodium (Diclofenac Sodium) 75 Mg Tablet.dr, 75 MG PO BID, TAB 11/02/21 Insulin Glargine,Hum.rec.anlog (Basaglar Kwikpen U-100) 100 Unit/Ml (3 Ml) Insuln.pen, 60 UNIT SQ HS, EA 11/02/21 Allopurinol (Allopurinol) 300 Mg Tablet, 300 MG PO DAILY, TAB 11/02/21 Discontinued Reported Medications Tramadol HCl (Tramadol HCl) 50 Mg Tablet, 50 MG PO BID, TAB 11/02/21 Silver Sulfadiazine (Silvadene) 20 Gm Cream..g., 1 % TP BID, EA 11/02/21 Meloxicam (Mobic) 15 Mg Tablet, 15 MG PO DAILY, TAB 11/02/21 Hydrocodone/Acetaminophen (Hydrocodone-Acetamin 7.5-325) 1 Each Tablet, 1 EACH PO TID PRN for PAIN-MODERATE (5-7), TAB 11/02/21 Glipizide (Glipizide ER) 2.5 Mg Tab, 2.5 MG PO DAILY, TAB 11/02/21 Carbidopa/Levodopa (Carbidopa-Levo 10-100 mg Odt) 1 Each Tab.rapdis, 2 EACH PO HS, TAB 11/02/21 Aspirin (Aspirin EC) 81 Mg Tablet.dr, 81 MG PO DAILY, TAB 11/02/21 Discontinued Scripts Atorvastatin Calcium (Atorvastatin Calcium) 20 Mg Tablet, 20 MG PO HS, #30 TAB 3 Refills Prov:GRICEL HUERTAS MD 11/03/21 Clopidogrel Bisulfate (Clopidogrel) 75 Mg Tablet, 75 MG PO DAILY, #30 TAB 6 Refills Prov:GRICEL HUERTAS MD 11/03/21 Metformin HCl (Metformin HCl) 1,000 Mg Tablet, 1000 MG PO DAILY, #1 TAB Hold Metformin for 48 hours Prov:GRICEL HUERTAS MD 11/03/21 Objective Exam L Hip: Dressing C/D/I, +DF of ankle, no s/s of DVT Vital Signs Vital Signs Date Time Temp Pulse Resp B/P (MAP) Pulse Ox O2 Delivery O2 Flow Rate FiO2 08/08/22 03:20 36.7 88 18 129/82 (98) 96 Room Air 08/07/22 23:40 36.0 91 18 121/71 (88) 92 Room Air 08/07/22 20:00 Room Air 08/07/22 19:28 36.6 102 18 134/84 (101) 99 Room Air 08/07/22 16:00 36.4 93 18 102/63 (76) 92 Room Air 08/07/22 12:32 37.6 99 20 131/72 (91) 100 Room Air 08/07/22 08:40 37.1 106 19 127/92 (104) 93 Room Air I & O 08/08/22 06:59 Intake Total 3990 ml Output Total 1350 ml Balance 2640 ml Lab Results Laboratory Tests 08/07/22 12:40: Glucometer 357H 08/08/22 05:20: Glucometer 199H 08/08/22 06:04: White Blood Count 7.4, Red Blood Count 4.29L, Hemoglobin 13.5, Hematocrit 39L, Mean Corpuscular Volume 90, Mean Corpuscular Hemoglobin 32, Mean Corpuscular Hemoglobin Concent 35, Red Cell Distribution Width 13.0, Platelet Count 172, Mean Platelet Volume 10.4, Sodium Level 136, Potassium Level 3.8, Chloride Level 102, Carbon Dioxide Level 25, Anion Gap 9, Blood Urea Nitrogen 18, Creatinine 1.14, Estimat Glomerular Filtration Rate 73, BUN/Creatinine Ratio 16, Glucose Level 192H, Calcium Level 9.7 Assessment and Plan Assessment Left Femoral Head Fracture/Left Hip Primary Osteoarthritis s/p L SKYLER Problem List Left Femoral Head Fracture/Left Hip Primary Osteoarthritis s/p L SKYLER Plan Agree with D/C Home ASA 81 mg BID for 35 days Continue working on gait training and walking for strengthening Reminded of posterior hip dislocation precautions F/U on 08/21 Final Diagonsis Left Femoral Head Fracture/Left Hip Primary Osteoarthritis s/p L SKYLER Level of the visit: Level 3 (global) SUSANNA COOPER MD Aug 08, 2022 08:29
[2022-08-08] MEDS ORDERED: ALLOPURINOL 300 MG (ZYLOPRIM) TAB PO SCH (09:00)
--- NOTE | 2022-08-08 10:16 | Physical Therapy Daily Note ---
PT Daily Note-Current Subjective Patient agrees to PT. Surgeon in to report he will dismiss patient on this date with home health. Pain Numeric Pain Scale: 3 Location: Left Location Body Site: Hip Pain Description: Acute Section J - Health Conditions 1. Rarely or not at all 2. Occasionally 3. Frequently 4. Almost constantly 8. Unable to answer Pain Effect on Sleep: 1 Pain Interference with Therapy: 1 Pain Interference w/Day-to-Day: 1 Mental Status Patient Orientation: Normal For Age Transfers SCALE: Activities may be completed with or without assistive devices. 4-Ntcfkchujp-bqrobsf completes the activity by him/herself with no assistance from a helper. 5-Set-up or Clean-up Assistance-helper sets up or cleans up; patient completes activity. [place] assists only prior to or following the activity. 4-Supervision or Touching Assistance-helper provides verbal cues and/or touching/steadying and/or contact guard assistance as patient completes activity. Assistance may be provided throughout the activity or intermittently. 3-Partial/Moderate Assistance-helper does LESS THAN HALF the effort. Belden lifts, holds or supports trunk or limbs, but provides less than half the effort. 2-Substantial/Maximal Assistance-helper does MORE THAN HALF the effort. [place] lifts or holds trunk or limbs and provides more than half the effort. 6-Rlfdyjixy-obyskj does ALL the effort. Patient does none of the effort to complete the activity. Or, the assistance of 2 or more helpers is required for the patient to complete the activity. If activity was not attempted, code reason: 7-Patient Refused. 9-Not Applicable-not attempted and the patient did not perform the activity before the current illness, exacerbation or injury. 10-Not Attempted due to Environmental Limitations-(lack of equipment, weather restraints, etc.). 88-Not Attempted due to Medical Conditions or Safety Concerns. Lying to Sitting/Side of Bed(Q: 6 Sit to Stand (QC): 6 Chair/Ytu-ml-Djyud Xfer(QC): 6 Toilet Transfer (QC): 6 Weight Bearing Left Lower Extremity: Left Weight Bearing/Tolerated Gait Training Distance: 400' Walk 10 feet (QC): 6 Walk 50 ft with 2 Turns(QC): 6 Walk 150 ft (QC): 6 Walking 10ft/uneven surface-QC: 6 Gait Assistive Device: FWW steady, reciprocal pattern Stair Training Stair Training: Handrails/: 1 handrail, uses walker #of Steps: 4 1 Step (curb) (QC): 6 4 Steps (QC): 6 Stairs: Pattern: Step to Assessment Patient tolerated treatment well and is independent with all mobility. PT to d ismiss patient from services at this time. PT Jail Goals Scouts Goals PT Jail Goals Time Frame: Aug 14, 2022 Roll Left & Right (QC): 6 Sit to Lying (QC): 6 Lying-Sitting on Side/Bed(QC): 6 Sit to Stand (QC): 6 Chair/Pkv-qf-Aurmi Xfer(QC): 6 Walk 10 feet (QC): 6 Walk 50ft with 2 Turns (QC): 6 Walk 150 ft (QC): 6 PT Plan Treatment/Plan Treatment Plan: Continue Plan of Care Treatment Plan: Bed Mobility, Education, Functional Activity Magaly, Functional Strength, Gait, Safety, Therapeutic Exercise, Transfers Treatment Duration: Aug 14, 2022 Frequency: 11 times per week Estimated Hrs Per Day: .25 hour per day Patient and/or Family Agrees t: Yes Time Time In: 819 Time Out: 833 DATE: Aug 08, 2022 Total Billed Treatment Time: 12 Total Billed Treatment 1 visit FA 12 min ESTELA DOMÍNGUEZ PT Aug 08, 2022 10:16
--- NOTE | 2022-08-08 10:24 | Discharge Summary ---
Diagnosis/Chief Complaint Date of Admission Aug 04, 2022 at 22:58 Date of Discharge Discharge Date: Aug 07, 2022 Admission Diagnosis L hip fracture Primary Care No,Local Physician Discharge Diagnosis (1) HLD (hyperlipidemia) (2) Hip fracture, left Status: Acute (3) Uncontrolled type 2 diabetes mellitus with hyperglycemia Status: Acute (4) Coronary artery disease Status: Acute (5) Hypertension Discharge Summary Discharge Physical Exam Allergies: Coded Allergies: Thjdhye-LCN-FrD Reductase Inhibitor (Verified Adverse Reaction, Unknown, muscle aches, 08/05/22) Vitals & I&Os Vital Signs Date Time Temp Pulse Resp B/P (MAP) Pulse Ox O2 Delivery O2 Flow Rate FiO2 08/08/22 12:05 36.6 97 18 118/69 (85) 94 Room Air 08/06/22 20:12 3.00 General Appearance: No Apparent Distress, Chronically ill, Obese Respiratory: Lungs Clear, No Respiratory Distress Cardiovascular: Regular Rate, Rhythm, No Murmur Neurologic/Psychiatric: Alert, Oriented x3 Hospital Course Patient was admitted to the hospital secondary to acute hip fracture. He was scheduled to have his hip replaced on the but given acute fracture surgery was done this admission. He did very well and declined any inpatient rehab serv ices. He did do very well with physical therapy and was able to be discharged home in improved condition with home health for continued strengthening. Labs (last 24 hrs) Laboratory Tests 08/08/22 05:20: Glucometer 199H 08/08/22 06:04: White Blood Count 7.4, Red Blood Count 4.29L, Hemoglobin 13.5, Hematocrit 39L, Mean Corpuscular Volume 90, Mean Corpuscular Hemoglobin 32, Mean Corpuscular Hemoglobin Concent 35, Red Cell Distribution Width 13.0, Platelet Count 172, Mean Platelet Volume 10.4, Sodium Level 136, Potassium Level 3.8, Chloride Level 102, Carbon Dioxide Level 25, Anion Gap 9, Blood Urea Nitrogen 18, Creatinine 1.14, Estimat Glomerular Filtration Rate 73, BUN/Creatinine Ratio 16, Glucose Level 192H, Calcium Level 9.7 08/08/22 11:33: Glucometer 333H Patient resulted labs reviewed. Pending Labs Laboratory Tests 08/08/22 06:04: White Blood Count 7.4, Red Blood Count 4.29, Hemoglobin 13.5, Hematocrit 39, Mean Corpuscular Volume 90, Mean Corpuscular Hemoglobin 32, Mean Corpuscular H emoglobin Concent 35, Red Cell Distribution Width 13.0, Platelet Count 172, Mean Platelet Volume 10.4, Sodium Level 136, Potassium Level 3.8, Chloride Level 102, Carbon Dioxide Level 25, Anion Gap 9, Blood Urea Nitrogen 18, Creatinine 1.14, Estimat Glomerular Filtration Rate 73, BUN/Creatinine Ratio 16, Glucose Level 192, Calcium Level 9.7 08/08/22 11:33: Glucometer 333 Imaging: Reviewed Imaging Report Discussion & Recommendations Discharge Planning: >30 minutes discharge planning Discharge Home Medications: Active Scripts Active Percocet 10-325 mg Tablet (Oxycodone HCl/Acetaminophen) 1 Each Tablet 1 Tab PO Q4H PRN Reported Prasugrel HCl 10 Mg Tablet 10 Mg PO HS Oxycodon-Acetaminophen 7.5-325 (Oxycodone HCl/Acetaminophen) 7.5 Mg-325 Mg Tablet 1 Ea PO Q6H PRN Novolog (Insulin Aspart) 100 Unit/Ml Susp 15 Units SC BIDAC Carbidopa-Levodopa 10-100 Tab (Carbidopa/Levodopa) 10 Mg-100 Mg Tablet 2 Ea PO HS Sertraline HCl 50 Mg Tablet 50 Mg PO HS Ropinirole HCl 4 Mg Tab.er.24h 4 Mg PO HS Pregabalin 75 Mg Capsule 75 Mg PO BID Diclofenac Sodium 75 Mg Tablet.dr 75 Mg PO BID Basaglar Kwikpen U-100 (Insulin Glargine,Hum.rec.anlog) 100 Unit/Ml (3 Ml) Insuln.pen 60 Unit SQ HS Allopurinol 300 Mg Tablet 300 Mg PO DAILY Instructions to patient/family Please see electronic discharge instructions given to patient. Problem Qualifiers (1) Hip fracture, left: Encounter type: initial encounter Fracture type: closed Qualified Codes: S72.002A - Fracture of unspecified part of neck of left femur, initial encounter for closed fracture MAYITO BARAKAT MD Aug 08, 2022 10:24
--- NOTE | 2022-08-08 11:09 | Occ Therapy Progress Note ---
Therapy Progress Note Pt up ad sada in bathroom at OT arrival. He reports discharge later today and declines any further OT services at this time. OT will discharge. Florencia Villatoro OT Aug 08, 2022 11:09
[2022-08-08] MEDS ORDERED: oxyCODONE/APAP 10/325MG (PERCOCET 10) TABLET PO PRN (11:15)
[2022-08-08 12:05] VITALS: BP 118/69
[2022-08-08] MEDS ORDERED: OXYC1TAB12 PO (13:04)
[2022-08-08 14:30] VITALS: BP 118/69
== END 2022-08-08 14:30 | disposition home health service (06) | DRG 522 ==
LOC: EDUNIT# 21:39 → ER 21:40 → ICU 22:58 → 4TH 08-05 12:35
PROVIDERS: ADMIT Internal Medicine; ATTEND Family Medicine
PROC: 0SRB04A Replacement of Left Hip Joint with Ceramic on Polyethylene Synthetic Substitute, Uncemented, Open Approach (ICD-10-PCS; principal; 2022-08-06 14:04)
DX: S72.052A Unspecified fracture of head of left femur, initial encounter for closed fracture (principal); E11.65 Type 2 diabetes mellitus with hyperglycemia; G20 Parkinson's disease; I25.10 Atherosclerotic heart disease of native coronary artery without angina pectoris; F17.210 Nicotine dependence, cigarettes, uncomplicated; G47.30 Sleep apnea, unspecified; K21.9 Gastro-esophageal reflux disease without esophagitis; M16.12 Unilateral primary osteoarthritis, left hip; E78.5 Hyperlipidemia, unspecified; H54.7 Unspecified visual loss; Z95.5 Presence of coronary angioplasty implant and graft; Z79.84 Long term (current) use of oral hypoglycemic drugs; Z79.82 Long term (current) use of aspirin; Z79.4 Long term (current) use of insulin; W18.39XA Other fall on same level, initial encounter; Y92.002 Bathroom of unspecified non-institutional (private) residence as the place of occurrence of the external cause
CPT/HCPCS: 36415; 72170; 80048; 80053; 82947; 85014; 85018; 85025; 85027; 85379; 86141

== ENCOUNTER 2022-08-15 14:24 | Emergency (ER) | payer OTHER, MEDICARE ==
[~2022-08-15] VITALS: Ht 175.3 cm; Wt 102.1 kg
[~2022-08-15 14:24] MED LIST changes: +CARB1TAB30 PO; +INSU100V16 SC; +OXYC1TAB12 PO; +OXYC1TAB15 PO; +PRAS10TA10 PO
--- NOTE | 2022-08-15 14:31 | ED Fall/Injury ---
General Stated Complaint: FALL | LT HIP PAIN Source: patient Exam Limitations: no limitations History of Present Illness Date Seen by Provider: Aug 15, 2022 Time Seen by Provider: 14:20 Initial Comments 61-year-old male presents to the emergency department today for left hip pain. He was walking in his garage and slipped on the ice. He has pain only in his left hip. Unfortunately, he had a total hip arthroplasty by Dr. Cooper here about a week ago. He claims he thinks he broke his hip. He did not hit his head or get knocked out. Last p.o. intake was about 45 minutes ago he had a couple sips of a Werdsmithter energy drink. Prior to that was about 2 hours since he had food. He is on Plavix Allergies and Home Medications Allergies Coded Allergies: Eowazxx-MKU-HbO Reductase Inhibitor (Verified Adverse Reaction, Unknown, muscle aches, 08/05/22) Patient Home Medication List Home Medication List Reviewed: Yes Allopurinol (Allopurinol) 300 Mg Tablet, 300 MG PO DAILY, (Reported) Entered as Reported by: WESTON DUFFY on 11/02/21 0851 Carbidopa/Levodopa (Carbidopa-Levodopa 10-100 Tab) 10 Mg-100 Mg Tablet, 2 EA PO HS, (Reported) Entered as Reported by: SHANE CROWLEY on 08/05/22 1539 Diclofenac Sodium (Diclofenac Sodium) 75 Mg Tablet.dr, 75 MG PO BID, (Reported) Entered as Reported by: WESTON DUFFY on 11/02/21 0851 Insulin Aspart (Novolog) 100 Unit/Ml Susp, 15 UNITS SC BIDAC, (Reported) Entered as Reported by: SHANE CROWLEY on 08/05/22 1539 Insulin Glargine,Hum.rec.anlog (Basaglar Kwikpen U-100) 100 Unit/Ml (3 Ml) Insuln.pen, 60 UNIT SQ HS, (Reported) Entered as Reported by: WESTON DUFFY on 11/02/21 0851 Oxycodone HCl/Acetaminophen (Percocet 10-325 mg Tablet) 1 Each Tablet, 1 TAB PO Q4H PRN for PAIN-MODERATE (5-7) Prescribed by: MAYITO BARAKAT on 08/08/22 1305 Prasugrel HCl (Prasugrel HCl) 10 Mg Tablet, 10 MG PO HS, (Reported) Entered as Reported by: SHANE CROWLEY on 08/05/22 1541 Pregabalin (Pregabalin) 75 Mg Capsule, 75 MG PO BID, (Reported) Entered as Reported by: WESTON DUFFY on 11/02/21 0851 Ropinirole HCl (Ropinirole HCl) 4 Mg Tab.er.24h, 4 MG PO HS, (Reported) Entered as Reported by: WESTON DUFFY on 11/02/21 0851 Sertraline HCl (Sertraline HCl) 50 Mg Tablet, 50 MG PO HS, (Reported) Entered as Reported by: WESTON DUFFY on 11/02/21 0851 Review of Systems Review of Systems Constitutional: no symptoms reported Eyes: No Symptoms Reported Ears, Nose, Mouth, Throat: no symptoms reported Respiratory: no symptoms reported Cardiovascular: no symptoms reported Gastrointestinal: no symptoms reported Genitourinary: no symptoms reported Musculoskeletal: joint pain (Left hip) Skin: no symptoms reported Psychiatric/Neurological: No Symptoms Reported Past Tzxypub-Vsxblj-Jecxrh Hx Patient Social History Tobacco Use?: No Use of E-Cig and/or Vaping dev: No Substance use?: No Alcohol Use?: No Immunizations Up To Date First/Initial COVID19 Vaccinat: yes Second COVID19 Vaccination Juan Carlos: yes Third COVID19 Vaccination Date: yes Past Medical History Surgeries: Yes Coronary Stent Respiratory: No Sleep Apnea Currently Using CPAP: No Currently Using BIPAP: No Cardiac: Yes Coronary Artery Disease Neurological: No Concussion Genitourinary: No Gastrointestinal: No Gastroesophageal Reflux Musculoskeletal: No Endocrine: Yes Diabetes, Non-Insulin dep HEENT: No Cancer: No Psychosocial: No Integumentary: No Family Medical History Reviewed Nursing Family Hx No Pertinent Family Hx Physical Exam Vital Signs Vital Signs - First Documented 08/15/22 14:24 Temp 35.4 Pulse 83 Resp 26 B/P (MAP) 151/89 (109) Pulse Ox 97 O2 Delivery Room Air Capillary Refill : Height, Weight, BMI Height: '" Weight: lbs. oz. kg; 33.19 BMI Method: General Appearance: WD/WN, other (Appears to be in pain) HEENT: normal ENT inspection, pharynx normal Neck: non-tender, supple Cardiovascular: regular rate, rhythm, no murmur Respiratory: chest non-tender, lungs clear, normal breath sounds, no respiratory distress, no accessory muscle use Gastrointestinal: normal bowel sounds, non tender, soft Back: normal inspection, no CVA tenderness, no vertebral tenderness Extremities: other (Tenderness palpation lateral left hip. Shortening and rotation lag. No tenderness distal to this. Neurovascular and sensory intact.) Neurologic/Psychiatric: no motor/sensory deficits, alert, normal mood/affect, oriented x 3 Skin: normal color, warm/dry Lymphatic: no adenopathy Procedures/Interventions Patient Education: Explained Benefits, Explained Risks, Pt. Ack. Understanding Agreement on procedure with pt: Yes Breath Sounds per Auscultation: Clear Heart Sounds per Auscultation: Regular Airway Exam: Mouth opens >2 fingers, Neck Full Range of Motion, Visulation of Uvula Total Time spent in CS 15 min Splinting and Joint Reduction : Location: Left hip Pre-Proc Neuro Vasc Exam: normal Post-Proc Neuro Vasc Exam: normal Joint Reduction Site: hip (L) Pre-Procedure NV Exam: Yes post joint reduction film: joint reduced Progress/Results/Core Measures Results/Orders Lab Results Laboratory Tests Test 08/15/22 14:24 08/15/22 16:22 Range/Units White Blood Count 5.9 4.3-11.0 10^3/uL Red Blood Count 4.18 L 4.30-5.52 10^6/uL Hemoglobin 12.9 L 13.3-17.7 g/dL Hematocrit 37 L 40-54 % Mean Corpuscular Volume 89 80-99 fL Mean Corpuscular Hemoglobin 31 25-34 pg Mean Corpuscular Hemoglobin Concent 35 32-36 g/dL Red Cell Distribution Width 12.7 10.0-14.5 % Platelet Count 232 130-400 10^3/uL Mean Platelet Volume 9.4 9.0-12.2 fL Immature Granulocyte % (Auto) 1 % Neutrophils (%) (Auto) 66 42-75 % Lymphocytes (%) (Auto) 21 12-44 % Monocytes (%) (Auto) 8 0-12 % Eosinophils (%) (Auto) 4 0-10 % Basophils (%) (Auto) 1 0-10 % Neutrophils # (Auto) 3.8 1.8-7.8 10^3/uL Lymphocytes # (Auto) 1.2 1.0-4.0 10^3/uL Monocytes # (Auto) 0.5 0.0-1.0 10^3/uL Eosinophils # (Auto) 0.2 0.0-0.3 10^3/uL Basophils # (Auto) 0.1 0.0-0.1 10^3/uL Immature Granulocyte # (Auto) 0.1 0.0-0.1 10^3/uL Sodium Level 132 L 135-145 MMOL/L Potassium Level 4.0 3.6-5.0 MMOL/L Chloride Level 96 L 98-107 MMOL/L Carbon Dioxide Level 22 21-32 MMOL/L Anion Gap 14 5-14 MMOL/L Blood Urea Nitrogen 22 H 7-18 MG/DL Creatinine 1.65 H 0.60-1.30 MG/DL Estimat Glomerular Filtration Rate 47 BUN/Creatinine Ratio 13 Glucose Level 624 *H 70-105 MG/DL Calcium Level 9.3 8.5-10.1 MG/DL Urine Color YELLOW Urine Clarity SL CLOUDY Urine pH 6.5 5-9 Urine Specific Rough And Ready 1.010 L 1.016-1.022 Urine Protein NEGATIVE NEGATIVE Urine Glucose (UA) 3+ H NEGATIVE Urine Ketones NEGATIVE NEGATIVE Urine Nitrite NEGATIVE NEGATIVE Urine Bilirubin NEGATIVE NEGATIVE Urine Urobilinogen 0.2 < = 1.0 MG/DL Urine Leukocyte Esterase NEGATIVE NEGATIVE Urine RBC (Auto) NEGATIVE NEGATIVE Urine RBC NONE /HPF Urine WBC NONE /HPF Urine Squamous Epithelial Cells RARE /HPF Urine Crystals NONE /LPF Urine Bacteria NEGATIVE /HPF Urine Casts NONE /LPF Urine Mucus NEGATIVE /LPF Urine Culture Indicated NO My Orders Orders - DEBORAH RAZA DO Pelvis With Left Hip 2-3 Views (08/15/22 14:28) Ed Iv/Invasive Line Start (08/15/22 14:33) Catheter(Urinary) Insert & Ass 03,15 (08/15/22 14:33) Morphine Injection (Morphine Injection (08/15/22 14:33) Cbc With Automated Diff (08/15/22 14:35) Basic Metabolic Panel (08/15/22 14:35) Ua Culture If Indicated (08/15/22 14:49) Propofol Injection (Diprivan Injection) (08/15/22 15:15) Hydromorphone Injection (Dilaudid Inject (08/15/22 15:15) Hip, Left (Single View) (08/15/22 15:35) Medications Given in ED Vital Signs/I&O 08/15/22 08/15/22 08/15/22 08/15/22 14:24 15:30 15:30 15:57 Temp 35.4 Pulse 83 77 79 Resp 26 16 14 B/P (MAP) 151/89 (109) 118/69 (85) 130/77 Pulse Ox 97 100 96 O2 Delivery Room Air OxyMask OxyMask Room Air O2 Flow Rate 2.00 2.00 Departure Communication (Admissions) Patient is hemodynamically stable. Significant pain. Initially given 100 mcg of fentanyl by EMS. I gave him morphine here which did not help then given 0.5 Dilaudid which seemed to help with quite a bit. X-ray showed only dislocation, no obvious fractures he is neurovascular and sensory intact. Procedural sedation which patient tolerated well and the hip was dislocated without difficulty. Postreduction films obtained and showed positioning. Knee immobili zer was placed. Remained neurovascular motor and sensory intact. Patient tolerated the entire procedure well without any complications. Discharged home in stable condition with orthopedic follow-up. Impression Primary Impression: Hip dislocation, left Qualified Codes: S73.005A - Unspecified dislocation of left hip, initial encounter Disposition: HOME, SELF-CARE Condition: Stable Departure-Patient Inst. Referrals: NO,LOCAL PHYSICIAN (PCP) Primary Care Physician MIKA COOPER MD Patient Instructions: Hip Dislocation (DC) Add. Discharge Instructions: Keep the knee immobilizer in place until cleared by orthopedic surgery. Call to schedule follow-up appointment. Return to the emergency department for any severe concerns. Follow-up with primary doctor for any nonemergent needs. DEBORAH RAZA DO Aug 15, 2022 14:31
[2022-08-15] MEDS ORDERED: morphine INJ 10 MG/ML 1ML (SYR OR VIAL) IVP STA (14:33)
[2022-08-15 14:52] LABS: BASOPHILS # (AUTO) 0.1 10^3/uL (0.0-0.1); BASOPHILS % (AUTO) 1 % (0-10); EOSINOPHILS # (AUTO) 0.2 10^3/uL (0.0-0.3); EOSINOPHILS % (AUTO) 4 % (0-10); HEMATOCRIT 37 % (40-54); HEMOGLOBIN 12.9 g/dL (13.3-17.7); LYMPHOCYTES # (AUTO) 1.2 10^3/uL (1.0-4.0); LYMPHOCYTES % (AUTO) 21 % (12-44); MEAN CORPUSCULAR HEMOGLOBIN 31 pg (25-34); MEAN CORPUSCULAR HGB CONC 35 g/dL (32-36); MEAN CORPUSCULAR VOLUME 89 fL (80-99); MEAN PLATELET VOLUME 9.4 fL (9.0-12.2); MONOCYTES # (AUTO) 0.5 10^3/uL (0.0-1.0); MONOCYTES % (AUTO) 8 % (0-12); NEUTROPHILS # (AUTO) 3.8 10^3/uL (1.8-7.8); NEUTROPHILS % (AUTO) 66 % (42-75); PLATELET COUNT 232 10^3/uL (130-400); WHITE BLOOD COUNT 5.9 10^3/uL (4.3-11.0)
[2022-08-15 15:04] LABS: CALCIUM 9.3 MG/DL (8.5-10.1)
[2022-08-15 15:09] LABS: CREATININE SERUM 1.65 MG/DL (0.60-1.30)
--- NOTE | 2022-08-15 15:13 | Diagnostic Imaging Report ---
EXAMINATION: Pelvis and left hip radiograph EXAM DATE: 08/15/2022 3:10 PM COMPARISON: 08/06/2022 HISTORY: L hip pain, fall TECHNIQUE: 3 views FINDINGS: There is anterolateral dislocation of the left femoral prosthesis from the acetabular component. No acute fracture is seen. Acetabular component remains within the appropriate position. The soft tissues are normal. IMPRESSION: 1. Left hip prosthesis dislocation. Dictated by: Dictated on workstation # [id number]
[2022-08-15] MEDS ORDERED: proPOfol 200 MG/20 ML (DIPRIVAN) VIAL IV ONE (15:15)
[2022-08-15] MEDS ORDERED: HYDROmorphone 2 MG/ML VIAL (DILAUDID) IVP ONE (15:15)
--- NOTE | 2022-08-15 15:51 | Diagnostic Imaging Report ---
INDICATION: Post reduction film. FINDINGS: Total arthroplasty left hip shows good alignment. No fractures are seen. IMPRESSION: Satisfactory appearing alignment of left hip. Dictated by: Dictated on workstation # [id number]
[2022-08-15 15:57] VITALS: BP 130/77
[2022-08-15 16:25] LABS: BILIRUBIN,URINE NEGATIVE (NEGATIVE); CLARITY,URINE SL CLOUDY; COLOR,URINE YELLOW; GLUCOSE, URINE (UA) 3+ (NEGATIVE); KETONES,URINE NEGATIVE (NEGATIVE); LEUKOCYTE ESTERASE ,URINE NEGATIVE (NEGATIVE); NITRITE,URINE NEGATIVE (NEGATIVE); PH,URINE 6.5 (5-9); PROTEIN,URINE NEGATIVE (NEGATIVE)
[2022-08-15 16:43] LABS: BACTERIA,URINE NEGATIVE /HPF; SQUAMOUS EPITHELIAL CELL,UR RARE /HPF
== END 2022-08-15 15:57 | disposition home or self-care (01) ==
LOC: EDUNIT# 14:24 → ER 14:26
DX: S73.005A Unspecified dislocation of left hip, initial encounter (principal); Z79.02 Long term (current) use of antithrombotics/antiplatelets; W00.0XXA Fall on same level due to ice and snow, initial encounter; Y93.01 Activity, walking, marching and hiking; Y92.59 Other trade areas as the place of occurrence of the external cause
CPT/HCPCS: 36415; 73501; 80048; 81000; 85025; 93041

== ENCOUNTER → 2022-08-20 | Outpatient (CLI) | payer OTHER, MEDICARE | LOC: ORTHO 11:00 | PROVIDERS: ATTEND Orthopaedic Surgery | DX: Z09 Encounter for follow-up examination after completed treatment for conditions other than malignant neoplasm (principal) ==

== ENCOUNTER → 2022-09-10 | Outpatient (CLI) | payer OTHER, MEDICARE ==
--- NOTE | 2022-09-10 11:56 | Diagnostic Imaging Report ---
INDICATION: Postoperative left hip arthroplasty, follow-up. TECHNIQUE: Two views left hip, 11:30 a.m. CORRELATION STUDY: 06/11/2022. FINDINGS: Interval postoperative changes of left bipolar hip arthroplasty. Some bone fragmentation in the superior aspect of the acetabulum. Hardware appears to be intact and in normal alignment. No acute bony abnormality. Scattered vascular calcifications. IMPRESSION: 1. Postoperative changes of left hip arthroplasty. Dictated by: Dictated on workstation # [id number]
== END ==
LOC: ORTHO 11:07
PROVIDERS: ATTEND Orthopaedic Surgery
DX: Z47.89 Encounter for other orthopedic aftercare (principal); Z96.652 Presence of left artificial knee joint
CPT/HCPCS: 73502

== ENCOUNTER 2022-09-20 20:17 | Emergency (ER) | payer OTHER, MEDICARE ==
[~2022-09-20] VITALS: Ht 175 cm; Wt 104.0 kg
[2022-09-20] MEDS ORDERED: morphine INJ 10 MG/ML 1ML (SYR OR VIAL) IVP STA (20:21)
--- NOTE | 2022-09-20 20:33 | ED Lower Extremity ---
General Stated Complaint: HIP DISLOCATION Source: patient, EMS Exam Limitations: no limitations History of Present Illness Date Seen by Provider: Sep 20, 2022 Time Seen by Provider: 20:20 Initial Comments 61-year-old male with recent left hip replacement coming in via EMS from home due to concern for left hip dislocation. Had a fracture that was fixed with a hip replacement in July recently. Had a hip dislocation roughly a week after that which was reduced in the emergency department. Have been doing okay, had his leg crossed over and he was putting on a sock when he fell to go back out about an hour prior to arrival. Denies any new weakness or numbness, and is having moderate to severe left hip pain. EMS placed an IV and given 100 mcg of fentanyl in total. He states that this did help. He is otherwise denying any other acute complaints Allergies and Home Medications Allergies Coded Allergies: Bewoura-TJA-ZjO Reductase Inhibitor (Verified Adverse Reaction, Unknown, muscle aches, 08/05/22) Patient Home Medication List Home Medication List Reviewed: Yes Allopurinol (Allopurinol) 300 Mg Tablet, 300 MG PO DAILY, (Reported) Entered as Reported by: WESTON DUFFY on 11/02/21 0851 Carbidopa/Levodopa (Carbidopa-Levodopa 10-100 Tab) 10 Mg-100 Mg Tablet, 2 EA PO HS, (Reported) Entered as Reported by: SHANE CROWLEY on 08/05/22 1539 Diclofenac Sodium (Diclofenac Sodium) 75 Mg Tablet.dr, 75 MG PO BID, (Reported) Entered as Reported by: WESTON DUFFY on 11/02/21 0851 Insulin Aspart (Novolog) 100 Unit/Ml Susp, 15 UNITS SC BIDAC, (Reported) Entered as Reported by: SHANE CROWLEY on 08/05/22 1539 Insulin Glargine,Hum.rec.anlog (Basaglar Kwikpen U-100) 100 Unit/Ml (3 Ml) Insuln.pen, 60 UNIT SQ HS, (Reported) Entered as Reported by: WESTON DUFFY on 11/02/21 0851 Oxycodone HCl/Acetaminophen (Percocet 10-325 mg Tablet) 1 Each Tablet, 1 TAB PO Q4H PRN for PAIN-MODERATE (5-7) Prescribed by: MAYITO BARAKAT on 08/08/22 1305 Prasugrel HCl (Prasugrel HCl) 10 Mg Tablet, 10 MG PO HS, (Reported) Entered as Reported by: SHANE CROWLEY on 08/05/22 1541 Pregabalin (Pregabalin) 75 Mg Capsule, 75 MG PO BID, (Reported) Entered as Reported by: WESTON DUFFY on 11/02/21 0851 Ropinirole HCl (Ropinirole HCl) 4 Mg Tab.er.24h, 4 MG PO HS, (Reported) Entered as Reported by: WESTON DUFFY on 11/02/21 0851 Sertraline HCl (Sertraline HCl) 50 Mg Tablet, 50 MG PO HS, (Reported) Entered as Reported by: WESTON DUFFY on 11/02/21 0851 Review of Systems Constitutional: No fever EENTM: no symptoms reported Respiratory: no symptoms reported Cardiovascular: no symptoms reported Gastrointestinal: no symptoms reported Musculoskeletal: see HPI Psychiatric/Neurological: No Symptoms Reported Past Guxzhyg-Wsidmm-Wjhnvv Hx Patient Social History Tobacco Use?: Yes Tobacco type used: Cigarettes Immunizations Up To Date First/Initial COVID19 Vaccinat: yes Second COVID19 Vaccination Juan Carlos: yes Third COVID19 Vaccination Date: yes Past Medical History Surgeries: Yes Coronary Stent Respiratory: No Sleep Apnea Currently Using CPAP: No Currently Using BIPAP: No Cardiac: Yes Coronary Artery Disease Neurological: No Concussion Genitourinary: No Gastrointestinal: No Gastroesophageal Reflux Musculoskeletal: No Endocrine: Yes Diabetes, Non-Insulin dep HEENT: No Cancer: No Psychosocial: No Integumentary: No Family Medical History No Pertinent Family Hx Physical Exam Vital Signs Vital Signs - First Documented 09/20/22 21:01 O2 Delivery OxyMask O2 Flow Rate 6.00 Capillary Refill : Height, Weight, BMI Height: '" Weight: lbs. oz. kg; 33.00 BMI Method: General Appearance: WD/WN, no apparent distress HEENT: PERRL/EOMI, normal ENT inspection Neck: normal inspection Cardiovascular: regular rate, rhythm, no edema, no murmur Respiratory: chest non-tender, lungs clear, normal breath sounds, no respir atory distress, no accessory muscle use Gastrointestinal: non tender, soft Hips: left hip other (Left leg shortened and slightly internally rotated, normal distal pulses and sensation, able to move toes without difficulty, pain along left hip with any type of movement) Neurologic/Tendon: normal sensation, normal motor functions, normal tendon functions Neurologic/Psychiatric: no motor/sensory deficits, alert, normal mood/affect, oriented x 3 Skin: normal color, warm/dry Procedures/Interventions Patient Education: Explained Benefits, Explained Risks, Pt. Ack. Understanding Breath Sounds per Auscultation: Clear Heart Sounds per Auscultation: Regular Airway Exam: Mouth opens >2 fingers, Neck Full Range of Motion, Visulation of Uvula Splinting and Joint Reduction : Pre-Proc Neuro Vasc Exam: normal Post-Proc Neuro Vasc Exam: normal Joint Reduction Site: hip (L) Reduction Attempts: 1 Pre-Procedure NV Exam: Yes post joint reduction film: no fracture seen Progress Left hip prosthesis with posterior dislocation on x-ray. Traction countertraction utilized after given propofol with good results. Post reduction x-ray reviewed and interpreted by me showing no fracture and dislocation is reduced. Patient neurovascularly intact before and after the procedure. Placed in a knee immobilizer to admit him from bending knee to flex hip Progress/Results/Core Measures Results/Orders My Orders Orders - PERLITA SPRINGER MD Pelvis With Left Hip 2-3 Views (09/20/22 20:21) Morphine Injection (Morphine Injection (09/20/22 20:21) Propofol Injection (Diprivan Injection) (09/20/22 20:54) Lactated Ringers (Lr 1000 Ml Iv Solution (09/20/22 20:55) Hip, Left (Single View) (09/20/22 21:00) Medications Given in ED Current Medications Medications Dose Ordered Sig/Fuentes Route Start Time Stop Time Status Last Admin Dose Admin Lactated Ringer's 1,000 ml @ ud STK-MED ONCE IV 09/20/22 20:55 09/20/22 20:59 DC 09/20/22 21:01 100 MLS/HR Propofol 200 mg STK-MED ONCE IV 09/20/22 20:54 09/20/22 20:56 DC 09/20/22 21:04 100 MG Vital Signs/I&O 09/20/22 21:01 O2 Delivery OxyMask O2 Flow Rate 6.00 Progress Progress Note : Progress Note 61-year-old male with above history coming in due to left hip dislocation. ABCs were intact and vitals were stable on presentation. An IV was placed and he already received fentanyl from EMS. He received 4 mg of IV morphine for me with good pain control. X-ray of the left hip ordered and interpreted by me showing a posterior hip dislocation. He was consented for procedural sedation and hip reduction. He was given a total of 100 mg of propofol with then a single attempt with good reduction on x-ray afterwards ordered and interpreted by me. Placed in a knee immobilizer to prevent him from flexing and hopefully not dislocating it again until he follows up with his orthopedist. Neurovascularly intact before and after the procedure. Diagnostic Imaging Diagonstic Imaging: Xray (pelvis and left hip) Comments NAME: SHARIFA CLEMONS [facility] REC#: [id number] PT STATUS: REG ER : 1960 PHYSICIAN: PERLITA SPRINGER MD ADMIT DATE: 09/20/22/ER Draft Date of Exam:09/20/22 PELVIS WITH LEFT HIP 2-3 VIEWS INDICATION: [place] a pop, left hip with pain. TECHNIQUE: AP pelvis along with 2 views left hip, 8:31 PM. CORRELATION STUDY: 08/15/2022. FINDINGS: Bilateral bipolar hip arthroplasties are present. There is posterior lateral dislocation of the left femoral prosthesis from its acetabular component. Right prosthesis appears generally unremarkable. Partial visualization of lumbosacral spinal fixation hardware. IMPRESSION: Left hip prosthesis dislocation. Dictated on workstation # [id number] Dict: 09/20/222047 Trans: 09/20/222050 [facility] [id number] Interpreted by: REMINGTON SAMSON DO Electronically signed by: NAME: SHARIFA CLEMONS [facility] REC#: [id number] PT STATUS: REG ER : 1960 PHYSICIAN: PERLITA SPRINGER MD ADMIT DATE: 09/20/22/ER Draft Date of Exam:09/20/22 HIP, LEFT (SINGLE VIEW) INDICATION: Left hip prosthesis dislocation, post reduction. TECHNIQUE: Single AP views of the left hip, 9:04 PM. CORRELATION STUDY: 09/20/2022. FINDINGS: There has been apparent satisfactory reduction of previously dislocated left hip prosthesis. The prosthetic femoral head now projects over the acetabular component. IMPRESSION: Interval reduction of left hip arthroplasty. Dictated on workstation # [id number] Dict: 09/20/222128 Trans: 09/20/222131 [facility] [id number] Interpreted by: REMINGTON SAMSON DO Electronically signed by: Departure Impression Primary Impression: Hip dislocation, left Qualified Codes: S73.005A - Unspecified dislocation of left hip, initial encounter Additional Impression: History of conscious sedation Disposition: HOME, SELF-CARE Condition: Improved Departure-Patient Inst. Decision time for Depature: 21:40 Referrals: VERONICA MCKEON MD (PCP/Family) Primary Care Physician Patient Instructions: Hip Dislocation, Procedural Sedation, Adult ED Add. Discharge Instructions: Your hip was dislocated which we were able to get back in place. Please keep the knee immobilizer on until you are able to follow-up with your hip specialist that you saw previously. Do not under any circumstances cross your leg over the other leg since that will likely dislocated again. Since this continues to dislocate, I will discuss options to help prevent this in the future. Take ibuprofen and/or Tylenol as needed for pain. Work/School Note: Work Release Form Date Seen in the Emergency Department: Sep 20, 2022 Return to Work: Sep 22, 2022 Restrictions: No Restrictions PERLITA SPRINGER MD Sep 20, 2022 20:32
--- NOTE | 2022-09-20 20:52 | Diagnostic Imaging Report ---
INDICATION: [place] a pop, left hip with pain. TECHNIQUE: AP pelvis along with 2 views left hip, 8:31 PM. CORRELATION STUDY: 08/15/2022. FINDINGS: Bilateral bipolar hip arthroplasties are present. There is posterior lateral dislocation of the left femoral prosthesis from its acetabular component. Right prosthesis appears generally unremarkable. Partial visualization of lumbosacral spinal fixation hardware. IMPRESSION: Left hip prosthesis dislocation. Dictated by: Dictated on workstation # [id number]
[2022-09-20] MEDS ORDERED: proPOfol 200 MG/20 ML (DIPRIVAN) VIAL IV ONE (20:54)
[2022-09-20] MEDS ORDERED: LACTATED RINGERS 1,000 ML IV ONE (20:55)
--- NOTE | 2022-09-20 21:32 | Diagnostic Imaging Report ---
INDICATION: Left hip prosthesis dislocation, post reduction. TECHNIQUE: Single AP views of the left hip, 9:04 PM. CORRELATION STUDY: 09/20/2022. FINDINGS: There has been apparent satisfactory reduction of previously dislocated left hip prosthesis. The prosthetic femoral head now projects over the acetabular component. IMPRESSION: Interval reduction of left hip arthroplasty. Dictated by: Dictated on workstation # [id number]
[2022-09-20 22:03] VITALS: BP 157/96
== END 2022-09-20 22:03 | disposition home or self-care (01) ==
LOC: EDUNIT# 20:17 → ER 20:19
DX: S73.015A Posterior dislocation of left hip, initial encounter (principal); F17.210 Nicotine dependence, cigarettes, uncomplicated; W18.30XA Fall on same level, unspecified, initial encounter; Y92.009 Unspecified place in unspecified non-institutional (private) residence as the place of occurrence of the external cause
CPT/HCPCS: 27252; 73501; 93041

== ENCOUNTER → 2022-09-26 | Outpatient (CLI) | payer OTHER, MEDICARE ==
[~2022-09-26] MED LIST changes: +CEPH500C PO; +OXC5T PO
== END ==
LOC: ORTHO 11:15
PROVIDERS: ATTEND Orthopaedic Surgery
DX: Z09 Encounter for follow-up examination after completed treatment for conditions other than malignant neoplasm (principal); E11.9 Type 2 diabetes mellitus without complications

== ENCOUNTER 2022-09-27 00:54 | Inpatient (IN) | payer OTHER, MEDICARE ==
[~2022-09-27] VITALS: Ht 175.3 cm; Wt 107.0 kg
[2022-09-27] VITALS (13 sets, daily range): BP systolic 97–156; BP diastolic 61–95
[~2022-09-27 00:54] MED LIST changes: -CEPH500C PO; -OXC5T PO
[2022-09-27] MEDS ORDERED: fentaNYL INJ 100 MCG/2 ML AMP IVP STA (01:00)
--- NOTE | 2022-09-27 01:07 | ED Hip Pain/Injury ---
General Chief Complaint: Hip/Pelvic Problems Stated Complaint: LEFT HIP PX Source: patient, old records History of Present Illness Date Seen by Provider: Sep 27, 2022 Time Seen by Provider: 00:57 Initial Comments PT ARRIVES VIA EMS FROM HOME C/O DISLOCATED LEFT HIP PT HAD LEFT HIP REPLACEMENT DUE TO HIP FRACTURE 08/05/[address] COOPER AND THIS IS THE 3RD TIME IT HAS DISLOCATED STATES TONIGHT, HE WAS SITTING IN A CHAIR AND BENT OVER TO SCRATCH HIS CALF AND IT POPPED OUT OF JOINT NO PARESTHESIS OR DISTAL MOTOR DEFICITS PT STATES HE WAS WEARING HIS KNEE BRACE TONIGHT WHEN IT HAPPENED. EMS GAVE 100 MCG FENTANYL 10 MINUTES PRIOR TO ARRIVAL FIRST TIME IT OCCURRED WAS 08/15/22 AFTER FALLING AND LANDING ON HIS HIP SECOND TIME IT OCCURRED WAS LAST WEEK 09/20/22, AFTER BENDING OVER TO PUT ON HIS SOCK HE SAW DR. COOPER TODAY FOR FOLLOW UP. PT STATES THAT HE WAS TOLD THAT IF IT HAPPENED AGAIN, HE WOULD PROBABLY NEED A REVISION. ADDITIONALLY, HE SAW DR. HUERTAS TODAY FOR ROUTINE CARDIOLOGY APPOINTMENT--PT HAS HISTORY OF CAD WITH STENT, WELL HTN. HE IS ALSO DIABETIC Other PCP: DR. MCKEON WATERSHED TENDER: DR. HUERTAS ORTHOPEDIC SURGEON: DR. COOPER Allergies and Home Medications Allergies Coded Allergies: Hbpijnj-XTR-MnB Reductase Inhibitor (Verified Adverse Reaction, Unknown, muscle aches, 08/05/22) Patient Home Medication List Home Medication List Reviewed: Yes Allopurinol (Allopurinol) 300 Mg Tablet, 300 MG PO DAILY, (Reported) Entered as Reported by: WESTON DUFFY on 11/02/21 0851 Carbidopa/Levodopa (Carbidopa-Levodopa 10-100 Tab) 10 Mg-100 Mg Tablet, 2 EA PO HS, (Reported) Entered as Reported by: SHANE CROWLEY on 08/05/22 1539 Diclofenac Sodium (Diclofenac Sodium) 75 Mg Tablet., 75 MG PO BID, (Reported) Entered as Reported by: WESTON DUFFY on 11/02/21 0851 Insulin Aspart (Novolog) 100 Unit/Ml Susp, 15 UNITS SC BIDAC, (Reported) Entered as Reported by: SHANE CROWLEY on 08/05/22 1539 Insulin Glargine,Hum.rec.anlog (Basaglar Kwikpen U-100) 100 Unit/Ml (3 Ml) Insuln.pen, 60 UNIT SQ HS, (Reported) Entered as Reported by: WESTON DUFFY on 11/02/21 0851 Oxycodone HCl/Acetaminophen (Percocet 10-325 mg Tablet) 1 Each Tablet, 1 TAB PO Q4H PRN for PAIN-MODERATE (5-7) Prescribed by: MAYITO BARAKAT on 08/08/22 1305 Prasugrel HCl (Prasugrel HCl) 10 Mg Tablet, 10 MG PO HS, (Reported) Entered as Reported by: SHANE CROWLEY on 08/05/22 1541 Pregabalin (Pregabalin) 75 Mg Capsule, 75 MG PO BID, (Reported) Entered as Reported by: WESTON DUFFY on 11/02/21 0851 Ropinirole HCl (Ropinirole HCl) 4 Mg Tab.er.24h, 4 MG PO HS, (Reported) Entered as Reported by: WESTON DUFFY on 11/02/21 08 Sertraline HCl (Sertraline HCl) 50 Mg Tablet, 50 MG PO HS, (Reported) Entered as Reported by: WESTON DUFFY on 11/02/21 0851 Review of Systems Constitutional: no symptoms reported Musculoskeletal: see HPI Psychiatric/Neurological: No Symptoms Reported Past Cdnzkbt-Xxqokc-Nzdexn Hx Patient Social History Tobacco Use?: Yes Tobacco type used: Cigarettes Smoking Status: Current Everyday Smoker Immunizations Up To Date First/Initial COVID19 Vaccinat: yes Second COVID19 Vaccination Juan Carlos: yes Third COVID19 Vaccination Date: yes Past Medical History Surgery/Hospitalization HX: LEFT HIP REPLACEMENT LT HIP DISLOCATIONS SINCE LEFT HIP REPLACEMENT Surgeries: Yes Cardiac, Coronary Stent Respiratory: No Sleep Apnea Currently Using CPAP: No Currently Using BIPAP: No Cardiac: Yes Coronary Artery Disease, Hypertension Neurological: Yes Concussion, Neuropathy Genitourinary: No Gastrointestinal: Yes Gastroesophageal Reflux Musculoskeletal: Yes (LEFT HIP FX WITH REPLACEMENT 08/05/22) Arthritis, Fractures, Gout Endocrine: Yes Diabetes, Non-Insulin dep HEENT: No Cancer: No Psychosocial: No Integumentary: No Blood Disorders: No Family Medical History No Pertinent Family Hx SOCIAL HISTORY: -SMOKES 1 1/2 PPD -DENIES ETOH USE -DENIES DRUG USE PAST SURGICAL HISTORY: -BACK SURGERY -CARPAL TUNNEL SURGERY -RIGHT HIP REPLACEMENT FOR ARTHRITIS -LEFT HIP REPLACEMENT 08/05/22 FOR FRACTURE. SUBSEQUENT HIP DISLOCATIONS 08/15/22, 09/20/22, 09/27/22 CARDIAC CATH 11/02/[address] HUERTAS: CONCLUSION: 1. Severe stenosis in the proximal LAD with successful primary stenting using ana paula point stent 3 x 23 expanded to 3.2 mm with excellent results 2. Moderate severe stenosis at the first obtuse marginal branch treated medically 3. Elevated left ventricular end-diastolic pressure 4. Heavily calcified left SFA with moderate stenosis at the midportion nonobstructive disease otherwise slow flow below the trifurcation distally due to small vessel disease 5. Mildly calcified right SFA with mild disease nonobstructive disease down to the trifurcation DISCUSSION AND RECOMMENDATION: Patient was loaded with aspirin and Plavix, adding Lipitor due to hyperlipidemia, continue to maximize medical therapy, continue to monitor will consider intervention on the obtuse marginal branch if patient becomes symptomatic. Consider repeating stress test in 6 months. Physical Exam Vital Signs Vital Signs - First Documented 09/27/22 09/27/22 00:57 01:24 Temp 37.0 Pulse 98 Resp 16 B/P (MAP) 126/71 (89) Pulse Ox 93 O2 Delivery Room Air O2 Flow Rate 2.00 2.00 Capillary Refill : Height, Weight, BMI Height: '" Weight: lbs. oz. kg; 33.00 BMI Method: General Appearance: No Apparent Distress, WD/WN, Obese, Other (PT IS TALKING AND LAUGHING ON ARRIVAL, THEN WITH TRANSFER FROM EMS COT TO ER COT, PT IS MOANING AND GRIMACING IN PAIN) Cardiovascular: Regular Rate, Rhythm, No Murmur, Normal Peripheral Pulses Respiratory: Normal Breath Sounds Peripheral Pulses: 2+ Dorsalis Pedis (R), 2+ Left Dors-Pedis (L) Gastrointestinal: Non Tender, Soft Extremity: Normal Capillary Refill, No Pedal Edema, Other (TENDERNESS TO LEFT HIP, WITH LEFT LEG POSITION OF COMFORT FLEXED AT HIP AND KNEE. DISTAL MOTOR/SENSORY/VASCULAR INTACT. ) Neurologic/Psychiatric: Alert, Oriented x3, No Motor/Sensory Deficits, Normal Mood/Affect, lab assistant II-XII Norm as Tested Skin: Normal Color, Warm/Dry Procedures/Interventions Procedure: CONSCIOUS SEDATION WITH CLOSED LEFT HIP REDUCTION Patient Education: Explained Benefits, Explained Risks, Pt. Ack. Understanding Agreement on procedure with pt: Yes Breath Sounds per Auscultation: Clear Heart Sounds per Auscultation: Regular Airway Exam: Mouth opens >2 fingers, Neck Full Range of Motion, Visulation of Uvula SEE NURSING NOTES FOR DETAILS Splinting and Joint Reduction : Location: LEFT HIP Pre-Proc Neuro Vasc Exam: normal Post-Proc Neuro Vasc Exam: normal Joint Reduction Site: hip (L) Pre-Procedure NV Exam: Yes post joint reduction film: joint not reduced Progress PT WAS GIVEN FENTANYL 100 MCG ( IN ADDITION TO THE 100 MCG PT HAD ALREADY RECEIVED FROM EMS) CONSCIOUS SEDATION WITH PROPOFOL 150 MCG TOTAL --PT DID HAVE SHORT PERIOD OF APNEA WITH HYPOXIA, NASAL TRUMPET AND HIGH FLOW OXYGEN APPLIED AND O2 SATS CAME BACK UP TO 90'S. BP DROPPED BRIEFLY TO 80'S SYSTOLIC, QUICKLY RECOVERED WITH IV FLUIDS LEFT HIP JOINT REDUCED EASILY WITH SEDATION, BUT PT WAS ROUSING FROM SEDATION, IT DISLOCATED AGAIN ADDITIONAL ATTEMPTS TO REDUCE WERE UNSUCCESSFUL. HIP WOULD BRIEFLY REDUCE, AND THEN DISLOCATE AGAIN. NO ADDITIONAL SEDATION WAS GIVEN DUE RISK OF FURTHER RESPIRATORY DEPRESSION. Progress/Results/Core Measures Results/Orders Lab Results My Orders Orders - TONIA RODRIGUEZ DO Ed Iv/Invasive Line Start (09/27/22 01:00) O2 (09/27/22 01:00) Monitor-Rhythm Ecg Trace Only (09/27/22 01:00) Pelvis With Left Hip 2-3 Views (09/27/22 01:00) Fentanyl Inj (Sublimaze Injection) (09/27/22 01:00) Propofol Injection (Diprivan Injection) (09/27/22 01:30) Fentanyl Inj (Sublimaze Injection) (09/27/22 01:30) Hip, Left, 2 Views (09/27/22 01:34) Morphine Injection (Morphine Injection (09/27/22 01:55) Medications Given in ED Current Medications Medications Dose Ordered Sig/Fuentes Route Start Time Stop Time Status Last Admin Dose Admin Fentanyl Citrate 50 mcg ONCE ONCE IVP 09/27/22 01:30 09/27/22 01:31 DC 09/27/22 01:27 50 MCG Propofol 200 mg ONCE ONCE IV 09/27/22 01:30 09/27/22 01:31 DC 09/27/22 01:26 200 MG Vital Signs/I&O 09/27/22 09/27/22 09/27/22 09/27/22 00:57 01:24 01:25 01:26 Temp 37.0 Pulse 98 93 Resp 16 14 B/P (MAP) 126/71 (89) 129/83 (98) Pulse Ox 93 99 97 O2 Delivery Room Air Nasal Cannula Nasal Cannula Nasal Cannula O2 Flow Rate 2.00 2.00 2.00 2.00 09/27/22 09/27/22 09/27/22 09/27/22 01:30 01:35 01:40 01:45 Pulse 93 97 92 93 Resp 14 14 16 18 B/P (MAP) 81/66 (71) 112/100 (104) 116/56 (76) 149/57 (87) Pulse Ox 89 100 100 100 O2 Delivery OxyMask OxyMask OxyMask OxyMask O2 Flow Rate 10.00 10.00 10.00 10.00 09/27/22 01:50 Pulse 90 Resp 20 B/P (MAP) 150/68 (95) Pulse Ox 100 O2 Delivery OxyMask O2 Flow Rate 10.00 Progress Progress Note : Progress Note REVIEWED PRIOR RECORDS, INCLUDING ER VISITS, ADMITS, H&P'S, CONSULTS, TESTS/PROCEDURES, DISCHARGE SUMMARIES DISCUSSED NEED FOR ADMIT WITH PATIENT, AND POSSIBILITY THAT HE MAY NEED TO GO TO SURGERY FOR FURTHER TREATMENT, AND HE IS AGREEABLE TO PLAN OF CARE VITALS ARE STABLE AT TIME OF ADMIT. PT WAS GIVEN ADDITIONAL MORPHINE FOR PAIN, AFTER CONSCIOUS SEDATION AND REDUCTION ATTEMPTS. Diagnostic Imaging Comments PELVIS / LEFT HIP XRAY--SUPERIOR/POSTERIOR DISLOCATION OF PROSTHETIC HIP, PENDING RADIOLOGIST REVIEW SUBSEQUENT HIP XRAY SHOWS RECURRENT DISLOCATION AFTER REDUCTION. Reviewed: Reviewed by Nh Departure Communication (Admissions) 0138--CALLED DR. JIMENEZ, ORTHOPEDIC SURGEON LIGHTING DESIGNER. MESSAGE LEFT ON CELL. 0148--CALLED DR. COOPER, MESSAGE LEFT ON CELL. 0150--CALLED DR. JIMENEZ, MESSAGE LEFT ON CELL. 0159--SPOKE WITH JAYLIN TOPETE NP FOR DR. JIMENEZ. HE ACCEPTS PT FOR ADMIT TO DR. JIMENEZ'S SERVICE, AND WILL CONSULT DR. COOPER IN THE MORNING, DR. COOPER TAKES OVER CALL AT 0700. 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 Referrals: VERONICA MCKEON MD (PCP/Family) Primary Care Physician TONIA RODRIGUEZ DO Sep 27, 2022 01:07
[2022-09-27] MEDS ORDERED: fentaNYL INJ 100 MCG/2 ML AMP IVP ONE (01:30)
[2022-09-27] MEDS ORDERED: proPOfol 200 MG/20 ML (DIPRIVAN) VIAL IV ONE ×2 (01:30→10:10)
[2022-09-27] MEDS ORDERED: morphine INJ 10 MG/ML 1ML (SYR OR VIAL) IVP STA ×2 (01:55→02:15)
[2022-09-27] MEDS ORDERED: NS IV 1000 ML 1,000 ML IV ONE (02:15)
[2022-09-27 02:20] LABS: BASOPHILS # (AUTO) 0.1 10^3/uL (0.0-0.1); BASOPHILS % (AUTO) 1 % (0-10); EOSINOPHILS # (AUTO) 0.3 10^3/uL (0.0-0.3); EOSINOPHILS % (AUTO) 5 % (0-10); HEMATOCRIT 39 % (40-54); HEMOGLOBIN 13.4 g/dL (13.3-17.7); LYMPHOCYTES # (AUTO) 1.9 10^3/uL (1.0-4.0); LYMPHOCYTES % (AUTO) 28 % (12-44); MEAN CORPUSCULAR HEMOGLOBIN 31 pg (25-34); MEAN CORPUSCULAR HGB CONC 35 g/dL (32-36); MEAN CORPUSCULAR VOLUME 89 fL (80-99); MEAN PLATELET VOLUME 9.8 fL (9.0-12.2); MONOCYTES # (AUTO) 0.6 10^3/uL (0.0-1.0); MONOCYTES % (AUTO) 8 % (0-12); NEUTROPHILS # (AUTO) 4.1 10^3/uL (1.8-7.8); NEUTROPHILS % (AUTO) 58 % (42-75); PLATELET COUNT 212 10^3/uL (130-400)
[2022-09-27 02:33] LABS: ALBUMIN 3.7 GM/DL (3.2-4.5); INR 0.9 (0.8-1.4); PROTHROMBIN TIME PATIENT 12.9 SEC (12.2-14.7)
[2022-09-27 02:34] LABS: CALCIUM 9.2 MG/DL (8.5-10.1)
[2022-09-27 02:36] LABS: TOTAL PROTEIN 6.8 GM/DL (6.4-8.2)
[2022-09-27 02:37] LABS: BILIRUBIN,TOTAL 0.2 MG/DL (0.1-1.0)
[2022-09-27 02:39] LABS: CREATININE SERUM 1.54 MG/DL (0.60-1.30)
[2022-09-27] MEDS ORDERED: D5 1/2 NS W/KCL 20 MEQ/L 1,000 ML IV ONE (03:16)
[2022-09-27] MEDS ORDERED: morphine INJ 4 MG/ML 1 ML (VIAL/SYRINGE) ONE (03:53)
[2022-09-27] MEDS: morphine INJ 4 MG/ML 1 ML (VIAL/SYRINGE) IVP PRN ×8 (03:56→23:33)
[2022-09-27] MEDS: D5 1/2 NS W/KCL 20 MEQ/L 1,000 ML IV SCH ×2 (04:24→09:52)
[2022-09-27] MEDS ORDERED: inSUlin ASPART (NovoLOG) 1 UNIT/0.01 ML (CHARGE PER UNIT) SC SCH ×2 (06:00→08:00)
--- NOTE | 2022-09-27 06:03 | Diagnostic Imaging Report ---
Indication: Left hip injury AP view pelvis shows postoperative changes from total left hip arthroplasty. There is dislocation of the left hip. There is no periprosthetic fracture seen. IMPRESSION: Left hip dislocation Dictated by: Dictated on workstation # [id number]
--- NOTE | 2022-09-27 06:04 | Diagnostic Imaging Report ---
Indication: Left hip pain AP view pelvis and 2 views of the left hip are obtained. There are postoperative changes from bilateral hip arthroplasties. There is dislocation of the left hip with the femur displaced superiorly. There is no periprosthetic fracture. IMPRESSION: Left hip dislocation Dictated by: Dictated on workstation # [id number]
[2022-09-27] MEDS ORDERED: ONDANSETRON 4 MG/2 ML (SDV) Z0FRAN ONE (10:10)
[2022-09-27] MEDS ORDERED: SEVOFLURANE (ULTANE) 15 ML INHAL SOLN ONE (10:10)
[2022-09-27] MEDS ORDERED: LIDOCAINE PF 2% 5 ML (XYLOCAINE) VIAL ONE (10:10)
[2022-09-27] MEDS ORDERED: fentaNYL INJ 100 MCG/2 ML AMP ONE (10:11)
[2022-09-27] MEDS ORDERED: MIDAZOLAM 2 MG/2 ML (VERSED) VIAL ONE (10:11)
[2022-09-27] MEDS: LACTATED RINGERS 1,000 ML IV PRN ×2 (10:44→12:02)
[2022-09-27] MEDS ORDERED: KETAMINE 50 MG/5 ML SYRINGE ONE (10:49)
--- NOTE | 2022-09-27 10:52 | History & Physical Orthopedic ---
History and Physical Subjective Date of Exam 09/27/22 Chief Complaint Left Hip coming out of socket HPI/Events since last exam patient sustained 3rd dislocation to left SKYLER last PM, original SKYLER performed in 08/15, had fall initially on first dislocation, has not been compliant with hip dislocation precautions Medical, Surgical History - Social History - Family History - Review of Systems - Allergies: Coded Allergies: Hhrckxm-RJJ-YbN Reductase Inhibitor (Verified Adverse Reaction, Unknown, muscle aches, 08/05/22) Home Meds Active Scripts Oxycodone HCl/Acetaminophen (Percocet 10-325 mg Tablet) 1 Each Tablet, 1 TAB PO Q4H PRN for PAIN-MODERATE (5-7), #20 TAB Prov:MAYITO BARAKAT MD 08/08/22 Reported Medications Prasugrel HCl (Prasugrel HCl) 10 Mg Tablet, 10 MG PO HS, TAB 08/05/22 Insulin Aspart (Novolog) 100 Unit/Ml Susp, 15 UNITS SC BIDAC, EA 08/05/22 Carbidopa/Levodopa (Carbidopa-Levodopa 10-100 Tab) 10 Mg-100 Mg Tablet, 2 EA PO HS, TAB 08/05/22 Sertraline HCl (Sertraline HCl) 50 Mg Tablet, 50 MG PO HS, TAB 11/02/21 Ropinirole HCl (Ropinirole HCl) 4 Mg Tab.er.24h, 4 MG PO HS, TAB 11/02/21 Pregabalin (Pregabalin) 75 Mg Capsule, 75 MG PO BID, CAP 11/02/21 Diclofenac Sodium (Diclofenac Sodium) 75 Mg Tablet.dr, 75 MG PO BID, TAB 11/02/21 Insulin Glargine,Hum.rec.anlog (Basaglar Kwikpen U-100) 100 Unit/Ml (3 Ml) Insuln.pen, 60 UNIT SQ HS, EA 11/02/21 Allopurinol (Allopurinol) 300 Mg Tablet, 300 MG PO DAILY, TAB 11/02/21 Objective Exam L Leg: Shortened, posterolateral scar, able to DF ankle, pulses palpable Vital Signs Vital Signs Date Time Temp Pulse Resp B/P (MAP) Pulse Ox O2 Delivery O2 Flow Rate FiO2 09/27/22 07:15 36.2 81 20 156/95 (115) 96 Nasal Cannula 2.00 09/27/22 07:00 85 09/27/22 04:40 90 09/27/22 03:00 37.0 91 20 133/90 (104) 97 Nasal Cannula 2.00 09/27/22 02:45 Nasal Cannula 2.00 09/27/22 02:29 36.9 90 16 138/72 99 Nasal Cannula 2.00 09/27/22 01:50 90 20 150/68 (95) 100 OxyMask 10.00 09/27/22 01:45 93 18 149/57 (87) 100 OxyMask 10.00 09/27/22 01:40 92 16 116/56 (76) 100 OxyMask 10.00 09/27/22 01:35 97 14 112/100 (104) 100 OxyMask 10.00 09/27/22 01:30 93 14 81/66 (71) 89 OxyMask 10.00 09/27/22 01:26 97 Nasal Cannula 2.00 09/27/22 01:25 93 14 129/83 (98) 99 Nasal Cannula 2.00 09/27/22 01:24 Nasal Cannula 2.00 2.00 09/27/22 00:57 37.0 98 16 126/71 (89) 93 Room Air I & O 09/27/22 07:00 Intake Total 1000 ml Output Total 1200 ml Balance -200 ml Lab Results Laboratory Tests 09/27/22 02:10: White Blood Count 7.0, Red Blood Count 4.35, Hemoglobin 13.4, Hematocrit 39L, Mean Corpuscular Volume 89, Mean Corpuscular Hemoglobin 31, Mean Corpuscular Hemoglobin Concent 35, Red Cell Distribution Width 13.4, Platelet Count 212, Mean Platelet Volume 9.8, Immature Granulocyte % (Auto) 0, Neutrophils (%) (Auto) 58, Lymphocytes (%) (Auto) 28, Monocytes (%) (Auto) 8, Eosinophils (%) ( Auto) 5, Basophils (%) (Auto) 1, Neutrophils # (Auto) 4.1, Lymphocytes # (Auto) 1.9, Monocytes # (Auto) 0.6, Eosinophils # (Auto) 0.3, Basophils # (Auto) 0.1, Immature Granulocyte # (Auto) 0.0, Prothrombin Time 12.9, INR Comment 0.9, Activated Partial Thromboplast Time 30, Sodium Level 136, Potassium Level 4.0, Chloride Level 100, Carbon Dioxide Level 25, Anion Gap 11, Blood Urea Nitrogen 26H, Creatinine 1.54H, Estimat Glomerular Filtration Rate 51, BUN/Creatinine R atio 17, Glucose Level 372H, Calcium Level 9.2, Corrected Calcium 9.4, Total Bilirubin 0.2, Aspartate Amino Transf (AST/SGOT) 22, Alanine Aminotransferase (ALT/SGPT) 35, Alkaline Phosphatase 152H, Total Protein 6.8, Albumin 3.7 09/27/22 05:49: Glucometer 287H Imaging Multiple views of the left hip from early this AM were reviewed and demonstrated dislocated SKYLER without successful reduction Assessment and Plan Assessment Recurrent Dislocation of Left Total Hip Arthroplasty Problem List Recurrent Dislocation of Left Total Hip Arthroplasty Plan Closed reduction today. Will need revision which will require significant instrumentation; will schedule for Friday. Plan for bedrest in abduction pillow over the weekend; bathroom priveleges only. Consent to be obtained. Final Diagonsis Recurrent Dislocation of Left Total Hip Arthroplasty Level of the visit: Level 3 (preop) SUSANNA COOPER MD Sep 27, 2022 10:52
--- NOTE | 2022-09-27 11:28 | Operative Report - Ortho ---
Operative Report Surgeon (s)/Crane Man (s) Surgeon SUSANNA COOPER MD Crane Man n/a Pre-Operative Diagnosis Recurrent Dislocation of Left Total Hip Arthroplasty Post-Operative Diagnosis same Operative Report Date of Procedure: Sep 27, 2022 Name of Procedure Performed: Reduction of Left Total Hip Dislocation Description & Findings After obtaining informed consent and marking the patient in the preoperative holding area, the patient was taken to the operating room and sedation was administered. Surgical timeout was taken. Multiple attempts of reduction were performed using flexion, internal rotation, and adduction. After multiple attempts, concentric reduction was achieved. C-arm images were transferred to PACS. Patient was placed in abduction pillow and transferred to hospital bed without incident. He was stable to the recovery room. Anesthesia Type Sedation/MAC Estimated Blood Loss none Specimen(s) collected/removed none SUSANNA COOPER MD Sep 27, 2022 11:28
[2022-09-27] MEDS ORDERED: ACETAMINOPHEN 500 MG TAB (TYLENOL) PO PRN (11:30)
[2022-09-27] MEDS ORDERED: NALOXONE 0.4 MG/ML 1 ML (NARCAN) VIAL ONE (11:34)
[2022-09-27] MEDS ORDERED: PHENYLEPHRINE INJ 10 MG/ML (FOR PYXIS KITS ONLY) ONE (11:42)
[2022-09-27] MEDS ORDERED: PHENYLEPHRINE 100 MCG/ML 10 ML (ANESTHESIA) SYR ONE (11:43)
[2022-09-27] MEDS ORDERED: ONDANSETRON 4 MG/2 ML (SDV) Z0FRAN IVP PRN (11:45)
[2022-09-27] MEDS ORDERED: morphine INJ 10 MG/ML 1ML (SYR OR VIAL) ONE (11:58)
[2022-09-27] MEDS ORDERED: LACTATED RINGERS 1,000 ML IV ONE (12:01)
--- NOTE | 2022-09-27 13:08 | Anesthesia-General Post-Op ---
MAC Patient Condition Mental Status/LOC: Same as Preop Cardiovascular: Satisfactory Nausea/Vomiting: Absent Respiratory: Satisfactory Pain: Controlled Complications: Absent Post Op Complications Complications None Follow Up Care/Instructions Patient Instructions None needed. Anesthesiology Discharge Order Discharge Order Patient is doing well, no complaints, stable vital signs, no apparent adverse anesthesia problems. No complications reported per nursing. JORDI YEUNG CRNA Sep 27, 2022 13:07
[2022-09-27] MEDS: inSUlin ASPART (NovoLOG) 1 UNIT/0.01 ML (CHARGE PER UNIT) SC SCH ×4 (13:37→20:41)
[2022-09-27] MEDS ORDERED: LORazepam 1 MG (ATIVAN) TAB PO PRN (14:00)
[2022-09-27] MEDS: LORazepam 0.5 MG (ATIVAN) TABLET PO PRN (16:32)
--- NOTE | 2022-09-27 18:24 | Consultation - Hospitalist ---
HPI History of Present Illness: HPI/Chief Complaint Denis Alvarado is a 61 year old male with PMH total hip arthroplasty, recurrent hip dislocation, HTN, T2DM on insulin, HLD, CAD, CKD 3a, RLS, Parkinson's, gout, depression, tobacco abuse, obesity, who was admitted with recurrent hip dislocation. The hospitalist service has been consulted for comanagement. He is getting ready to go down for his procedure upon my arrival. He complains of hip pain. He has no other complaints. He has been in his usual state of health. He denies fevers. He denies chest pain. He denies shortness of breath. He denies nausea. He denies abdominal pain. Source: patient Exam Limitations: no limitations Date Seen 09/27/22 Attending Physician Jason Peralta MD PCP Admitting Physician: Brannon Wilkinson MD Attending Physician: Brannon Wilkinson MD Referring Physician Date of Admission Sep 27, 2022 at 02:00 Home Medications & Allergies Home Medications Reviewed patient Home Medication Reconciliation performed by pharmacy medication reconciliations data technician and/or nursing. Patients Allergies have been reviewed. Allergies Allergies Coded Allergies Rjrpfzz-NYR-VhM Reductase Inhibitor (Verified Adverse Reaction, Unknown, muscle aches, 08/05/22) Past Qhcwvnv-Qyecsk-Cpmbye Hx Patient Social History Tobacco Use?: Yes Tobacco type used: Cigarettes Smoking Status: Current Everyday Smoker Smokeless Tobacco Frequency: Never a User Use of E-Cig and/or Vaping dev: No Substance use?: No Alcohol Use?: No Pt feels they are or have been: No Immunizations Up To Date Date of Influenza Vaccine: Jul 08, 2022 First/Initial COVID19 Vaccinat: yes Second COVID19 Vaccination Juan Carlos: yes Tetanus Booster (TDap): Less Than 5 Years Current Status Advance Directives: Unable to obtain Communicates: Verbally Primary Language: Tuvaluan Preferred Spoken Language: Tuvaluan Is interpretation needed?: No Sensory deficits: Vision impairment Implanted or Applied Medical D: Stents Past Medical History Surgeries: Cardiac, Coronary Stent Sleep Apnea Currently Using CPAP: No Currently Using BIPAP: No Coronary Artery Disease, Hypertension Concussion, Neuropathy Gastroesophageal Reflux Arthritis, Fractures, Gout Diabetes, Non-Insulin dep Blood Disorders: No Family Medical History No Pertinent Family Hx SOCIAL HISTORY: -SMOKES 1 1/2 PPD -DENIES ETOH USE -DENIES DRUG USE PAST SURGICAL HISTORY: -BACK SURGERY -CARPAL TUNNEL SURGERY -RIGHT HIP REPLACEMENT FOR ARTHRITIS -LEFT HIP REPLACEMENT 08/05/22 FOR FRACTURE. SUBSEQUENT HIP DISLOCATIONS 08/15/22, 09/20/22, 09/27/22 CARDIAC CATH 11/02/[address] HUERTAS: CONCLUSION: 1. Severe stenosis in the proximal LAD with successful primary stenting using ana paula point stent 3 x 23 expanded to 3.2 mm with excellent results 2. Moderate severe stenosis at the first obtuse marginal branch treated medically 3. Elevated left ventricular end-diastolic pressure 4. Heavily calcified left SFA with moderate stenosis at the midportion nonobstructive disease otherwise slow flow below the trifurcation distally due to small vessel disease 5. Mildly calcified right SFA with mild disease nonobstructive disease down to the trifurcation DISCUSSION AND RECOMMENDATION: Patient was loaded with aspirin and Plavix, adding Lipitor due to hyperlipidemia, continue to maximize medical therapy, continue to monitor will consider intervention on the obtuse marginal branch if patient becomes symptomatic. Consider repeating stress test in 6 months. Review of Systems Constitutional: no symptoms reported EENTM: no symptoms reported Respiratory: no symptoms reported Cardiovascular: no symptoms reported Gastrointestinal: no symptoms reported Musculoskeletal: joint pain Physical Exam Physical Exam Vital Signs Vital Signs - First Documented 09/27/22 09/27/22 00:57 01:24 Temp 37.0 Pulse 98 Resp 16 B/P (MAP) 126/71 (89) Pulse Ox 93 O2 Delivery Room Air O2 Flow Rate 2.00 2.00 Capillary Refill : Less Than 3 Seconds Height, Weight, BMI Height: '" Weight: lbs. oz. kg; 34.55 BMI Method: General Appearance: No Apparent Distress, WD/WN, Obese HEENT: PERRL/EOMI, Pharynx Normal Respiratory: Lungs Clear, Normal Breath Sounds, No Respiratory Distress Cardiovascular: Regular Rate, Rhythm, No Edema, No Murmur Gastrointestinal: Non Tender, Soft Extremity: No Pedal Edema, Other (left leg immobilized) Neurologic/Psychiatric: Alert, Oriented x3, Normal Mood/Affect Skin: Normal Color, Warm/Dry Results Results/Procedures Labs Laboratory Tests 09/27/22 02:10 Patient resulted labs reviewed. Imaging: Reviewed Imaging Report Assessment/Plan Assessment and Plan Assess & Plan/Chief Complaint Left hip dislocation, recurrent History of left hip arthroplasty Orthopedic surgery primary, Dr. Arnett Closed reduction today Planning for further intervention Friday Pain regimen Bowel regimen Incentive spirometry Bed rest, abduction pillow T2DM Reduced dose Levemir Reduced dose Novolog Sliding scale C Parkinsons RLS Gout Anxiety Depression Obesity Continue home meds CAD Holding Prasugrel Tobacco abuse Nicotine patch DVT prophylaxis: Lovenox when ok with surgery Diagnosis/Problems Diagnosis/Problems (1) Hip dislocation, left Status: Acute Qualifiers: Encounter type: initial encounter Qualified Codes: S73.005A - Unspecified dislocation of left hip, initial encounter (2) History of total hip arthroplasty Status: Chronic Qualifiers: Laterality: left Qualified Codes: Z96.642 - Presence of left artificial hip joint (3) T2DM (type 2 diabetes mellitus) Status: Acute Qualifiers: 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
[2022-09-27] MEDS: rOPINIRole 1 MG (REQUIP) TABLET PO SCH (20:51)
[2022-09-27] MEDS: SINEMET 10/100 (CARBIDOPA/LEVADOPA) TAB PO SCH (20:51)
[2022-09-27] MEDS ORDERED: NON-FORMULARY MEDICATION 1 EA EA (Ropinirole HCl 4 MG) PO SCH (21:00)
[2022-09-28 03:36] VITALS: BP 137/91
[2022-09-28] MEDS: morphine INJ 4 MG/ML 1 ML (VIAL/SYRINGE) IVP PRN ×3 (04:58→21:34)
[2022-09-28] MEDS: inSUlin ASPART (NovoLOG) 1 UNIT/0.01 ML (CHARGE PER UNIT) SC SCH ×6 (05:14→21:15)
--- NOTE | 2022-09-28 07:09 | Progress Note - Ortho ---
Progress Note Subjective Date of Exam 09/28/22 Chief Complaint POD #1 Closed Reduction of Left Hip Recurrent Dislocation HPI/Events since last exam has remained in bed, has unstrapped right leg from abduction pillow, has constant "issue" with restless leg Review of Systems - Allergies: Coded Allergies: Gwtpdzo-ZLG-EkT Reductase Inhibitor (Verified Adverse Reaction, Unknown, muscle aches, 08/05/22) Home Meds Active Scripts Oxycodone HCl/Acetaminophen (Percocet 10-325 mg Tablet) 1 Each Tablet, 1 TAB PO Q4H PRN for PAIN-MODERATE (5-7), #20 TAB Prov:MAYITO BARAKAT MD 08/08/22 Reported Medications Prasugrel HCl (Prasugrel HCl) 10 Mg Tablet, 10 MG PO HS, TAB 08/05/22 Insulin Aspart (Novolog) 100 Unit/Ml Susp, 15 UNITS SC BIDAC, EA 08/05/22 Carbidopa/Levodopa (Carbidopa-Levodopa 10-100 Tab) 10 Mg-100 Mg Tablet, 2 EA PO HS, TAB 08/05/22 Sertraline HCl (Sertraline HCl) 50 Mg Tablet, 50 MG PO HS, TAB 11/02/21 Ropinirole HCl (Ropinirole HCl) 4 Mg Tab.er.24h, 4 MG PO HS, TAB 11/02/21 Pregabalin (Pregabalin) 75 Mg Capsule, 75 MG PO BID, CAP 11/02/21 Diclofenac Sodium (Diclofenac Sodium) 75 Mg Tablet.dr, 75 MG PO BID, TAB 11/02/21 Insulin Glargine,Hum.rec.anlog (Basaglar Kwikpen U-100) 100 Unit/Ml (3 Ml) Insuln.pen, 60 UNIT SQ HS, EA 11/02/21 Allopurinol (Allopurinol) 300 Mg Tablet, 300 MG PO DAILY, TAB 11/02/21 Objective Exam L Hip: Clinically located, leg lengths equal, +DF of ankle, no s/s of DVT Vital Signs Vital Signs Date Time Temp Pulse Resp B/P (MAP) Pulse Ox O2 Delivery O2 Flow Rate FiO2 09/28/22 03:36 36.7 97 16 137/91 (106) 93 Room Air 09/28/22 02:53 100 09/27/22 23:04 36.8 90 16 134/71 (92) 94 Room Air 09/27/22 20:50 Room Air 09/27/22 19:05 36.5 80 18 103/64 (77) 93 Room Air 09/27/22 19:00 80 09/27/22 15:54 36.3 83 19 134/82 (99) 97 Room Air 09/27/22 12:46 83 09/27/22 12:35 36.0 82 20 128/68 (88) 94 Room Air 09/27/22 12:25 Room Air 09/27/22 12:20 36.8 20 126/70 (88) 97 Room Air 09/27/22 12:10 Room Air 09/27/22 12:10 20 137/79 (98) 94 Room Air 09/27/22 12:00 14 140/87 (104) 94 OxyMask 2.00 09/27/22 11:55 OxyMask 2.00 09/27/22 11:50 14 138/88 (105) 99 OxyMask 4.00 09/27/22 11:45 12 132/86 (101) 98 OxyMask 4.00 09/27/22 11:40 OxyMask 4.00 09/27/22 11:35 12 97/66 (76) 100 OxyMask 6.00 09/27/22 11:35 OxyMask 6.00 09/27/22 11:25 36.4 8 97/61 (73) 98 OxyMask 6.00 09/27/22 08:00 Room Air 09/27/22 07:15 36.2 81 20 156/95 (115) 96 Nasal Cannula 2.00 I & O 09/28/22 07:00 Intake Total 1700 ml Output Total 3450 ml Balance -1750 ml Lab Results Laboratory Tests 09/27/22 11:31: Glucometer 204H 09/27/22 12:55: Glucometer 176H 09/27/22 20:25: Glucometer 140H 09/28/22 05:07: Glucometer 115H Microbiology 09/27/22 MRSA Screen - Preliminary, Resulted MRSA not isolated Assessment and Plan Assessment 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 Abduction pillow unless up to bathroom. Plan for revision procedure on left total hip on Friday AM. 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
[2022-09-28 07:44] VITALS: BP 139/83
[2022-09-28] MEDS: ALLOPURINOL 300 MG (ZYLOPRIM) TAB PO SCH (08:41)
[2022-09-28] MEDS: NICOTINE 21 MG (NICODERM) PATCH TD SCH (09:00)
[2022-09-28] MEDS: NICOTINE 14 MG (NICODERM) PATCH TD SCH (09:00)
[2022-09-28] MEDS: PATCH REMOVAL TP SCH (09:00)
[2022-09-28] MEDS: NICOTINE PATCH REMOVAL TP SCH (09:00)
[2022-09-28] MEDS ORDERED: ENOXAPARIN 40 MG/0.4 ML (LOVENOX) SYR SC ONE (11:00)
[2022-09-28 11:06] VITALS: BP 134/76
[2022-09-28] MEDS: ONDANSETRON 4 MG/2 ML (SDV) Z0FRAN IV PRN (12:30)
--- NOTE | 2022-09-28 13:21 | Progress Note - Hospitalist ---
Subjective HPI/CC On Admission Date Seen by Provider: Sep 28, 2022 Time Seen by Provider: 10:40 Denis Alvarado is a 61 year old male with PMH total hip arthroplasty, recurrent hip dislocation, HTN, T2DM on insulin, HLD, CAD, CKD 3a, RLS, Parkinson's, gout, depression, tobacco abuse, obesity, who was admitted with recurrent hip dislocation. The hospitalist service has been consulted for comanagement. He is getting ready to go down for his procedure upon my arrival. He complains of hip pain. He has no other complaints. He has been in his usual state of health. He denies fevers. He denies chest pain. He denies shortness of breath. He denies nausea. He denies abdominal pain. Subjective/Events-last exam He is laying in bed. He has three cans of Monster energy drink on his tray. His pain is controlled. He says he wants to take a shower today. He is reminded that he is on bed rest but still wants to take a shower. Objective Exam Vital Signs Vital Signs Date Time Temp Pulse Resp B/P (MAP) Pulse Ox O2 Delivery O2 Flow Rate FiO2 09/28/22 13:00 89 09/28/22 11:06 36.8 20 134/76 (95) 92 Room Air 09/27/22 12:00 2.00 Capillary Refill : Less Than 3 Seconds General Appearance: No Apparent Distress, Obese Respiratory: Lungs Clear, No Respiratory Distress Cardiovascular: Regular Rate, Rhythm, No Murmur Gastrointestinal: Normal Bowel Sounds, Soft Extremity: Normal Inspection, No Pedal Edema Skin: Normal Color, Warm/Dry Results/Procedures Lab Patient resulted labs reviewed. Imaging: Reviewed Imaging Report Assessment/Plan Assessment and Plan Assess & Plan/Chief Complaint Left hip dislocation, recurrent History of left hip arthroplasty Orthopedic surgery primary, Dr. Arnett Closed reduction today Planning for further intervention Friday Pain regimen Bowel regimen Incentive spirometry Bed rest, abduction pillow Add Lovenox for today and tomorrow morning, then hold for surgery T2DM Well controlled this morning Reduced dose Levemir Reduced dose Novolog Sliding scale C Parkinsons RLS Gout Anxiety Depression Obesity Continue home meds CAD Holding Prasugrel Tobacco abuse Nicotine patch DVT prophylaxis: Lovenox Diagnosis/Problems Diagnosis/Problems (1) Hip dislocation, left Status: Acute Qualifiers: Encounter type: initial encounter Qualified Codes: S73.005A - Unspecified dislocation of left hip, initial encounter (2) History of total hip arthroplasty Status: Chronic Qualifiers: Laterality: left Qualified Codes: Z96.642 - Presence of left artificial hip joint (3) T2DM (type 2 diabetes mellitus) Status: Acute Qualifiers: Diabetes mellitus [facility] insulin use: with machine long goods helper use Diabetes mellitus complication status: with hyperglycemia Qualified Codes: E11.65 - Type 2 diabetes mellitus with hyperglycemia; Z79.4 - [facility] (current) use of insulin (4) Obesity Status: Chronic PATRICIO FRAUSTO MD Sep 28, 2022 13:21
[2022-09-28 16:00] VITALS: BP 142/73
[2022-09-28] MEDS: PREGABALIN 75 MG (LYRICA) CAP PO SCH ×2 (17:53→19:59)
[2022-09-28 19:21] VITALS: BP 121/68
[2022-09-28] MEDS: SINEMET 10/100 (CARBIDOPA/LEVADOPA) TAB PO SCH (19:59)
[2022-09-28] MEDS: rOPINIRole 1 MG (REQUIP) TABLET PO SCH (20:00)
[2022-09-28] MEDS ORDERED: PREGABALIN 75 MG (LYRICA) CAP PO SCH (21:00)
[2022-09-28 23:18] VITALS: BP 132/72
[2022-09-29] MEDS: morphine INJ 4 MG/ML 1 ML (VIAL/SYRINGE) IVP PRN ×6 (01:59→23:30)
[2022-09-29 03:39] VITALS: BP 112/72
[2022-09-29] MEDS: inSUlin ASPART (NovoLOG) 1 UNIT/0.01 ML (CHARGE PER UNIT) SC SCH ×6 (05:32→21:32)
[2022-09-29 07:36] VITALS: BP 122/75
[2022-09-29] MEDS: NICOTINE 14 MG (NICODERM) PATCH TD SCH (08:18)
[2022-09-29] MEDS: PREGABALIN 75 MG (LYRICA) CAP PO SCH ×2 (08:18→23:29)
[2022-09-29] MEDS: ALLOPURINOL 300 MG (ZYLOPRIM) TAB PO SCH (08:18)
[2022-09-29] MEDS: PATCH REMOVAL TP SCH (08:19)
[2022-09-29] MEDS: NICOTINE 21 MG (NICODERM) PATCH TD SCH (08:19)
[2022-09-29] MEDS: NICOTINE PATCH REMOVAL TP SCH (08:19)
[2022-09-29] MEDS ORDERED: ENOXAPARIN 40 MG/0.4 ML (LOVENOX) SYR SC ONE (08:30)
[2022-09-29] MEDS ORDERED: ENOXAPARIN INJECTION 30 MG/0.3 ML SYR SC ONE (08:30)
--- NOTE | 2022-09-29 09:27 | Progress Note - Hospitalist ---
Subjective HPI/CC On Admission Date Seen by Provider: Sep 29, 2022 Time Seen by Provider: 09:10 Denis Alvarado is a 61 year old male with PMH total hip arthroplasty, recurrent hip dislocation, HTN, T2DM on insulin, HLD, CAD, CKD 3a, RLS, Parkinson's, gout, depression, tobacco abuse, obesity, who was admitted with recurrent hip dislocation. The hospitalist service has been consulted for comanagement. He is getting ready to go down for his procedure upon my arrival. He complains of hip pain. He has no other complaints. He has been in his usual state of health. He denies fevers. He denies chest pain. He denies shortness of breath. He denies nausea. He denies abdominal pain. Subjective/Events-last exam He is sitting in his chair. He has no complaints. Objective Exam Vital Signs Vital Signs Date Time Temp Pulse Resp B/P (MAP) Pulse Ox O2 Delivery O2 Flow Rate FiO2 09/29/22 07:36 35.6 77 18 122/75 (91) 95 Room Air 09/29/22 03:39 0.00 0.00 Capillary Refill : Less Than 3 Seconds General Appearance: No Apparent Distress, Obese Respiratory: Lungs Clear, No Respiratory Distress Cardiovascular: Regular Rate, Rhythm, No Murmur Gastrointestinal: Normal Bowel Sounds, Soft Extremity: Normal Inspection, No Pedal Edema Neurologic/Psychiatric: Alert, Normal Mood/Affect Results/Procedures Lab Patient resulted labs reviewed. Imaging: Reviewed Imaging Report Assessment/Plan Assessment and Plan Assess & Plan/Chief Complaint Left hip dislocation, recurrent History of left hip arthroplasty Orthopedic surgery primary, Dr. Arnett Closed reduction 2/3 Planning for further intervention tomorrow Pain regimen Bowel regimen Incentive spirometry Bed rest, abduction pillow Hold Lovenox for surgery NPO after midnight T2DM Well controlled Reduced dose Levemir Reduced dose Novolog Sliding scale C Parkinsons RLS Gout Anxiety Depression Obesity Continue home meds CAD Holding Prasugrel Tobacco abuse Nicotine patch DVT prophylaxis: Lovenox, hold tomorrow for surgery Diagnosis/Problems Diagnosis/Problems (1) Hip dislocation, left Status: Acute Qualifiers: Encounter type: initial encounter Qualified Codes: S73.005A - Unspecified dislocation of left hip, initial encounter (2) History of total hip arthroplasty Status: Chronic Qualifiers: Laterality: left Qualified Codes: Z96.642 - Presence of left artificial hip joint (3) T2DM (type 2 diabetes mellitus) Status: Acute Qualifiers: Diabetes mellitus [facility] insulin use: with jail use Diabetes mellitus complication status: with hyperglycemia Qualified Codes: E11.65 - Type 2 diabetes mellitus with hyperglycemia; Z79.4 - [facility] ([facility] use of insulin (4) Obesity Status: Chronic PATRICIO FRAUSTO MD Sep 29, 2022 09:27
[2022-09-29] MEDS: LACTATED RINGERS 1,000 ML IV PRN (10:22)
--- NOTE | 2022-09-29 10:59 | Progress Note - Ortho ---
Progress Note Subjective Date of Exam 09/29/22 Chief Complaint POD #2 Closed Reduction of recurrent left total hip dislocation HPI/Events since last exam despite bedrest orders, sitting up in chair when I see him; no complaints, no questions about surgery Review of Systems - Allergies: Coded Allergies: Mprahbf-QJY-CjF Reductase Inhibitor (Verified Adverse Reaction, Unknown, muscle aches, 08/05/22) Home Meds Active Scripts Oxycodone HCl/Acetaminophen (Percocet 10-325 mg Tablet) 1 Each Tablet, 1 TAB PO Q4H PRN for PAIN-MODERATE (5-7), #20 TAB Prov:MAYITO BARAKAT MD 08/08/22 Reported Medications Prasugrel HCl (Prasugrel HCl) 10 Mg Tablet, 10 MG PO HS, TAB 08/05/22 Insulin Aspart (Novolog) 100 Unit/Ml Susp, 15 UNITS SC BIDAC, EA 08/05/22 Carbidopa/Levodopa (Carbidopa-Levodopa 10-100 Tab) 10 Mg-100 Mg Tablet, 2 EA PO HS, TAB 08/05/22 Sertraline HCl (Sertraline HCl) 50 Mg Tablet, 50 MG PO HS, TAB 11/02/21 Ropinirole HCl (Ropinirole HCl) 4 Mg Tab.er.24h, 4 MG PO HS, TAB 11/02/21 Pregabalin (Pregabalin) 75 Mg Capsule, 75 MG PO BID, CAP 11/02/21 Diclofenac Sodium (Diclofenac Sodium) 75 Mg Tablet.dr, 75 MG PO BID, TAB 11/02/21 Insulin Glargine,Hum.rec.anlog (Basaglar Kwikpen U-100) 100 Unit/Ml (3 Ml) Insuln.pen, 60 UNIT SQ HS, EA 11/02/21 Allopurinol (Allopurinol) 300 Mg Tablet, 300 MG PO DAILY, TAB 11/02/21 Objective Exam L Hip: Clinically located, +DF of ankle, no s/s of DVT Vital Signs Vital Signs Date Time Temp Pulse Resp B/P (MAP) Pulse Ox O2 Delivery O2 Flow Rate FiO2 09/29/22 07:36 35.6 77 18 122/75 (91) 95 Room Air 09/29/22 07:00 74 09/29/22 03:39 36.8 86 18 112/72 (85) 92 Room Air 0.00 0.00 09/29/22 01:00 93 09/28/22 23:18 36.2 86 18 132/72 (92) 92 Room Air 0.00 0.00 09/28/22 20:00 92 Room Air 09/28/22 19:21 36.2 85 18 121/68 (85) 91 Room Air 09/28/22 19:00 80 09/28/22 16:00 35.8 90 18 142/73 (96) 93 Room Air 09/28/22 13:00 89 09/28/22 11:06 36.8 92 20 134/76 (95) 92 Room Air I & O 09/29/22 06:59 Intake Total 2120 ml Output Total 1675 ml Balance 445 ml Lab Results Laboratory Tests 09/28/22 11:03: Glucometer 145H 09/28/22 16:04: Glucometer 299H 09/28/22 20:59: Glucometer 135H 09/29/22 05:29: Glucometer 158H 09/29/22 10:44: Glucometer 183H Microbiology 09/27/22 MRSA Screen - Final, Complete MRSA not isolated Assessment and Plan Assessment 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 Discussed procedure and potential postoperative course. Discussed possibility of needing inpatient rehab. Consent to be obtained. 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
[2022-09-29 11:46] VITALS: BP 129/70
[2022-09-29 15:36] VITALS: BP 134/74
[2022-09-29 19:23] VITALS: BP 163/82
[2022-09-29 23:04] VITALS: BP 147/75
[2022-09-29] MEDS: rOPINIRole 1 MG (REQUIP) TABLET PO SCH (23:29)
[2022-09-29] MEDS: SINEMET 10/100 (CARBIDOPA/LEVADOPA) TAB PO SCH (23:29)
[2022-09-30] VITALS (12 sets, daily range): BP systolic 112–148; BP diastolic 71–87
[2022-09-30] MEDS: morphine INJ 4 MG/ML 1 ML (VIAL/SYRINGE) IVP PRN ×6 (04:10→23:04)
[2022-09-30] MEDS: inSUlin ASPART (NovoLOG) 1 UNIT/0.01 ML (CHARGE PER UNIT) SC SCH ×6 (05:09→21:05)
[2022-09-30] MEDS: PREGABALIN 75 MG (LYRICA) CAP PO SCH ×2 (07:39→19:59)
[2022-09-30] MEDS: ALLOPURINOL 300 MG (ZYLOPRIM) TAB PO SCH (07:40)
[2022-09-30] MEDS: NICOTINE 21 MG (NICODERM) PATCH TD SCH (07:43)
[2022-09-30] MEDS: NICOTINE PATCH REMOVAL TP SCH (07:43)
[2022-09-30] MEDS: NICOTINE 14 MG (NICODERM) PATCH TD SCH (07:43)
[2022-09-30] MEDS: PATCH REMOVAL TP SCH (07:44)
[2022-09-30] MEDS ORDERED: proPOfol 200 MG/20 ML (DIPRIVAN) VIAL IV ONE (09:04)
[2022-09-30] MEDS ORDERED: ROCURONIUM 50 MG/5 ML (ZEMURON) VIAL IV ONE (09:04)
[2022-09-30] MEDS ORDERED: LIDOCAINE PF 2% 5 ML (XYLOCAINE) VIAL ONE (09:04)
[2022-09-30] MEDS ORDERED: fentaNYL INJ 100 MCG/2 ML AMP ONE (09:04)
[2022-09-30] MEDS ORDERED: ceFAZolin INJECTION 1,000 MG VIAL IV ONE (09:30)
--- NOTE | 2022-09-30 09:32 | Progress Note - Hospitalist ---
Subjective HPI/CC On Admission Date Seen by Provider: Sep 30, 2022 Denis Alvarado is a 61 year old male with PMH total hip arthroplasty, recurrent hip dislocation, HTN, T2DM on insulin, HLD, CAD, CKD 3a, RLS, Parkinson's, gout, depression, tobacco abuse, obesity, who was admitted with recurrent hip dislocation. The hospitalist service has been consulted for comanagement. He is getting ready to go down for his procedure upon my arrival. He complains of hip pain. He has no other complaints. He has been in his usual state of health. He denies fevers. He denies chest pain. He denies shortness of breath. He denies nausea. He denies abdominal pain. Subjective/Events-last exam Pt reports doing well. No complaints Plan is for OR today. Now reports he saw Dr Mcdonough recently and he wanted labs and a stress test. I discussed with Dr Mcdonough's PA and stress test was follow up for atypical chest pain but per report not concerning for angina. Will order labs. Objective Exam Vital Signs Vital Signs Date Time Temp Pulse Resp B/P (MAP) Pulse Ox O2 Delivery O2 Flow Rate FiO2 09/30/22 08:44 36.2 74 18 131/75 (93) 95 Room Air 09/30/22 03:48 0.00 0.00 Capillary Refill : Less Than 3 Seconds General Appearance: No Apparent Distress, Obese Respiratory: Lungs Clear, No Respiratory Distress Cardiovascular: Regular Rate, Rhythm, No Murmur Neurologic/Psychiatric: Alert, Oriented x3 Results/Procedures Lab Patient resulted labs reviewed. Imaging: Reviewed Imaging Report Assessment/Plan Assessment and Plan Assess & Plan/Chief Complaint Left hip dislocation, recurrent History of left hip arthroplasty Orthopedic surgery primary, Dr. Arnett Closed reduction 2/3 Planning for further intervention later today Pain regimen Bowel regimen Incentive spirometry Bed rest, abduction pillow Hold Lovenox for surgery NPO after midnight Will get his fasting labs T2DM Well controlled Reduced dose Levemir with NPO Reduced dose Novolog with NPO Sliding scale C Parkinsons RLS Gout Anxiety Depression Obesity Continue home meds CAD Holding Prasugrel Tobacco abuse Nicotine patch DVT prophylaxis: Lovenox, hold tomorrow for surgery MAYITO BARAKAT MD Sep 30, 2022 09:32
[2022-09-30] MEDS: LACTATED RINGERS 1,000 ML IV PRN (11:06)
[2022-09-30 11:17] LABS: CLARITY,URINE CLOUDY; COLOR,URINE YELLOW
[2022-09-30 11:18] LABS: BILIRUBIN,URINE 1+ (NEGATIVE); GLUCOSE, URINE (UA) NEGATIVE (NEGATIVE); KETONES,URINE NEGATIVE (NEGATIVE); LEUKOCYTE ESTERASE ,URINE 3+ (NEGATIVE); NITRITE,URINE POSITIVE (NEGATIVE); PH,URINE 7.5 (5-9); PROTEIN,URINE 2+ (NEGATIVE)
[2022-09-30 11:19] LABS: BACTERIA,URINE LARGE /HPF; WBC,URINE TNTC /HPF
[2022-09-30] MEDS ORDERED: SUGAMMADEX 500 MG/5 ML VIAL (BRIDION) IV ONE (11:23)
[2022-09-30] MEDS ORDERED: SEVOFLURANE (ULTANE) 15 ML INHAL SOLN ONE (11:24)
--- NOTE | 2022-09-30 11:37 | Progress Note - Ortho ---
Progress Note Subjective Date of Exam 09/30/22 Chief Complaint POD #3 Closed Reduction of Recurrent Dislocation of Left Total Hip Arthroplasty HPI/Events since last exam planned for revision today; however, when Booth catheter was placed significant purulent material was drained from bladder, surgery was postponed Review of Systems - Allergies: Coded Allergies: Xjayfor-KJZ-ZmX Reductase Inhibitor (Verified Adverse Reaction, Unknown, muscle aches, 08/05/22) Home Meds Active Scripts Oxycodone HCl/Acetaminophen (Percocet 10-325 mg Tablet) 1 Each Tablet, 1 TAB PO Q4H PRN for PAIN-MODERATE (5-7), #20 TAB Prov:MAYITO BARAKAT MD 08/08/22 Reported Medications Prasugrel HCl (Prasugrel HCl) 10 Mg Tablet, 10 MG PO HS, TAB 08/05/22 Insulin Aspart (Novolog) 100 Unit/Ml Susp, 15 UNITS SC BIDAC, EA 08/05/22 Carbidopa/Levodopa (Carbidopa-Levodopa 10-100 Tab) 10 Mg-100 Mg Tablet, 2 EA PO HS, TAB 08/05/22 Sertraline HCl (Sertraline HCl) 50 Mg Tablet, 50 MG PO HS, TAB 11/02/21 Ropinirole HCl (Ropinirole HCl) 4 Mg Tab.er.24h, 4 MG PO HS, TAB 11/02/21 Pregabalin (Pregabalin) 75 Mg Capsule, 75 MG PO BID, CAP 11/02/21 Diclofenac Sodium (Diclofenac Sodium) 75 Mg Tablet.dr, 75 MG PO BID, TAB 11/02/21 Insulin Glargine,Hum.rec.anlog (Basaglar Kwikpen U-100) 100 Unit/Ml (3 Ml) Insuln.pen, 60 UNIT SQ HS, EA 11/02/21 Allopurinol (Allopurinol) 300 Mg Tablet, 300 MG PO DAILY, TAB 11/02/21 Objective Exam Left Hip: Clinically located, +DF of ankle, no s/s of DVT Vital Signs Vital Signs Date Time Temp Pulse Resp B/P (MAP) Pulse Ox O2 Delivery O2 Flow Rate FiO2 09/30/22 08:44 36.2 74 18 131/75 (93) 95 Room Air 09/30/22 08:00 Room Air 09/30/22 07:05 77 09/30/22 03:48 36.7 74 18 134/87 (103) 95 Room Air 0.00 0.00 09/30/22 01:00 72 09/29/22 23:04 36.8 89 18 147/75 (99) 97 Room Air 0.00 0.00 09/29/22 20:00 Room Air 0.00 09/29/22 19:23 36.6 82 19 163/82 (109) 96 Room Air 09/29/22 19:00 77 09/29/22 15:36 36.5 80 21 134/74 (94) 96 Room Air 09/29/22 12:42 87 09/29/22 11:46 36.3 82 18 129/70 (89) 92 Room Air I & O 09/30/22 07:00 Intake Total 1210 ml Output Total 1102 ml Balance 108 ml Lab Results Laboratory Tests 09/29/22 15:35: Glucometer 202H 09/29/22 20:20: Glucometer 177H 09/30/22 04:51: Glucometer 148H 09/30/22 10:47: Urine Color YELLOW, Urine Clarity CLOUDY, Urine pH 7.5, Urine Specific [place] 1.015L, Urine Protein 2+H, Urine Glucose (UA) NEGATIVE, Urine Ketones NEGATIVE, Urine Nitrite POSITIVEH, Urine Bilirubin 1+H, Urine Urobilinogen 0.2, Urine Leukocyte Esterase 3+H, Urine RBC (Auto) NEGATIVE, Urine RBC 5-10H, Urine WBC TNTCH, Urine Crystals NONE, Urine Bacteria LARGEH, Urine Casts NONE, Urine Mucus NEGATIVE, Urine Culture Indicated YES Microbiology 09/29/22 MRSA Screen - Final, Complete MRSA not isolated Assessment and Plan Assessment Recurrent Dislocation of Left Total Hip Arthroplasty Urinary Tract Infection Noncompliance with dislocation precautions and activity restrictions. Problem List Recurrent Dislocation of Left Total Hip Arthroplasty Urinary Tract Infection Noncompliance with dislocation precautions and activity restrictions. Plan Postpone surgery. Treat UTI. Tentatively rescheduled surgery for 10/02 at 1 PM. Final Diagonsis Recurrent Dislocation of Left Total Hip Arthroplasty Urinary Tract Infection Noncompliance with dislocation precautions and activity restrictions. Level of the visit: Level 3 (global) SUSANNA COOPER MD Sep 30, 2022 11:37
[2022-09-30 13:34] LABS: HEMATOCRIT 43 % (40-54); HEMOGLOBIN 14.7 g/dL (13.3-17.7); MEAN CORPUSCULAR HEMOGLOBIN 31 pg (25-34); MEAN CORPUSCULAR HGB CONC 34 g/dL (32-36); MEAN CORPUSCULAR VOLUME 90 fL (80-99); MEAN PLATELET VOLUME 9.9 fL (9.0-12.2); PLATELET COUNT 188 10^3/uL (130-400); WHITE BLOOD COUNT 5.5 10^3/uL (4.3-11.0)
[2022-09-30 13:56] LABS: ALBUMIN 3.7 GM/DL (3.2-4.5); BILIRUBIN,TOTAL 0.5 MG/DL (0.1-1.0); CALCIUM 9.9 MG/DL (8.5-10.1); CREATININE SERUM 1.18 MG/DL (0.60-1.30); TOTAL PROTEIN 7.1 GM/DL (6.4-8.2)
[2022-09-30] MEDS: cefTRIAXone 1 GM PRE-MIX 50 ML IV SCH (14:04)
[2022-09-30] MEDS: ENOXAPARIN 40 MG/0.4 ML (LOVENOX) SYR SQ SCH (17:04)
[2022-09-30] MEDS: eZETimibe 10 MG (ZETIA) TABLET PO SCH (19:59)
[2022-09-30] MEDS: rOPINIRole 1 MG (REQUIP) TABLET PO SCH (19:59)
[2022-09-30] MEDS: CATHETER FLUSH 10 ML SYR IVP PRN ×2 (20:00→23:04)
[2022-09-30] MEDS: SINEMET 10/100 (CARBIDOPA/LEVADOPA) TAB PO SCH (21:56)
[2022-10-01] VITALS (7 sets, daily range): BP systolic 99–132; BP diastolic 57–79
[2022-10-01] MEDS: morphine INJ 4 MG/ML 1 ML (VIAL/SYRINGE) IVP PRN ×6 (03:23→23:30)
[2022-10-01] MEDS: inSUlin ASPART (NovoLOG) 1 UNIT/0.01 ML (CHARGE PER UNIT) SC SCH ×6 (06:38→21:40)
[2022-10-01] MEDS: NICOTINE 14 MG (NICODERM) PATCH TD SCH ×2 (08:32→08:35)
[2022-10-01] MEDS: ALLOPURINOL 300 MG (ZYLOPRIM) TAB PO SCH (08:32)
[2022-10-01] MEDS: PREGABALIN 75 MG (LYRICA) CAP PO SCH ×2 (08:32→19:51)
[2022-10-01] MEDS: ISOSORBIDE MONONITRATE 30 MG (IMDUR) TAB PO SCH (08:32)
[2022-10-01] MEDS: NICOTINE 21 MG (NICODERM) PATCH TD SCH (08:32)
[2022-10-01] MEDS: ASPIRIN E.C. 81 MG (ECOTRIN) TAB PO SCH (08:32)
[2022-10-01] MEDS: lisINopril 5 MG (PRINIVIL) TABLET PO SCH (08:33)
[2022-10-01] MEDS: NICOTINE PATCH REMOVAL TP SCH (08:33)
[2022-10-01] MEDS: PATCH REMOVAL TP SCH (08:33)
--- NOTE | 2022-10-01 09:40 | Progress Note - Ortho ---
Progress Note Subjective Date of Exam 10/01/22 Chief Complaint POD #4 Closed Reduction of Recurrent Left Total Hip Dislocation HPI/Events since last exam undergoing treatment for UTI diagnosed yesterday, restless, no abduction pillow on while in bed Review of Systems - Allergies: Coded Allergies: Ebseqli-HUF-GaF Reductase Inhibitor (Verified Adverse Reaction, Unknown, muscle aches, 08/05/22) Home Meds Active Scripts Oxycodone HCl/Acetaminophen (Percocet 10-325 mg Tablet) 1 Each Tablet, 1 TAB PO Q4H PRN for PAIN-MODERATE (5-7), #20 TAB Prov:MAYITO BARAKAT MD 08/08/22 Reported Medications Prasugrel HCl (Prasugrel HCl) 10 Mg Tablet, 10 MG PO HS, TAB 08/05/22 Insulin Aspart (Novolog) 100 Unit/Ml Susp, 15 UNITS SC BIDAC, EA 08/05/22 Carbidopa/Levodopa (Carbidopa-Levodopa 10-100 Tab) 10 Mg-100 Mg Tablet, 2 EA PO HS, TAB 08/05/22 Sertraline HCl (Sertraline HCl) 50 Mg Tablet, 50 MG PO HS, TAB 11/02/21 Ropinirole HCl (Ropinirole HCl) 4 Mg Tab.er.24h, 4 MG PO HS, TAB 11/02/21 Pregabalin (Pregabalin) 75 Mg Capsule, 75 MG PO BID, CAP 11/02/21 Diclofenac Sodium (Diclofenac Sodium) 75 Mg Tablet.dr, 75 MG PO BID, TAB 11/02/21 Insulin Glargine,Hum.rec.anlog (Basaglar Kwikpen U-100) 100 Unit/Ml (3 Ml) I nsuln.pen, 60 UNIT SQ HS, EA 11/02/21 Allopurinol (Allopurinol) 300 Mg Tablet, 300 MG PO DAILY, TAB 11/02/21 Objective Exam L Hip: Clinically located, positive DF of ankle, no s/s of DVT, sensation d iminished to light touch Vital Signs Vital Signs Date Time Temp Pulse Resp B/P (MAP) Pulse Ox O2 Delivery O2 Flow Rate FiO2 10/01/22 07:22 78 10/01/22 07:15 36.1 76 16 120/75 (90) 95 Room Air 0.00 0.00 10/01/22 03:22 36.1 91 18 128/79 (95) 93 Room Air 10/01/22 01:00 87 09/30/22 23:04 36.3 96 20 148/75 (99) 94 Room Air 09/30/22 20:00 Room Air 09/30/22 19:22 36.3 91 20 135/76 (95) 95 Room Air 09/30/22 19:01 93 09/30/22 15:27 36.4 87 20 129/71 (90) 96 Nasal Cannula 1.00 09/30/22 13:00 88 09/30/22 12:25 Nasal Cannula 2.00 09/30/22 12:20 36.2 20 123/81 (95) 94 Nasal Cannula 2.00 09/30/22 12:15 Nasal Cannula 2.00 09/30/22 12:10 20 118/81 (93) 94 Nasal Cannula 2.00 09/30/22 12:00 OxyMask 3.00 09/30/22 12:00 20 120/77 (91) 99 OxyMask 2.00 09/30/22 11:50 20 112/76 (88) 96 OxyMask 3.00 09/30/22 11:45 OxyMask 3.00 09/30/22 11:40 20 116/73 (87) 95 OxyMask 3.00 09/30/22 11:30 20 120/78 (92) 96 OxyMask 5.00 09/30/22 11:30 OxyMask 5.00 09/30/22 11:26 36.2 20 119/83 (95) 97 OxyMask 5.00 09/30/22 11:26 OxyMask 5.00 I & O 10/01/22 07:00 Intake Total 2000 ml Output Total 2325 ml Balance -325 ml Lab Results Laboratory Tests 09/30/22 10:47: Urine Color YELLOW, Urine Clarity CLOUDY, Urine pH 7.5, Urine Specific [place] 1.015L, Urine Protein 2+H, Urine Glucose (UA) NEGATIVE, Urine Ketones NEGATIVE, Urine Nitrite POSITIVEH, Urine Bilirubin 1+H, Urine Urobilinogen 0.2, Urine Leukocyte Esterase 3+H, Urine RBC (Auto) NEGATIVE, Urine RBC 5-10H, Urine WBC TNTCH, Urine Crystals NONE, Urine Bacteria LARGEH, Urine Casts NONE, Urine Mucus NEGATIVE, Urine Culture Indicated YES 09/30/22 12:25: Glucometer 146H 09/30/22 13:27: White Blood Count 5.5, Red Blood Count 4.77, Hemoglobin 14.7, Hematocrit 43, Mean Corpuscular Volume 90, Mean Corpuscular Hemoglobin 31, Mean Corpuscular He moglobin Concent 34, Red Cell Distribution Width 13.2, Platelet Count 188, Mean Platelet Volume 9.9, Sodium Level 139, Potassium Level 4.0, Chloride Level 102, Carbon Dioxide Level 25, Anion Gap 12, Blood Urea Nitrogen 20H, Creatinine 1.18, Estimat Glomerular Filtration Rate 70, BUN/Creatinine Ratio 17, Glucose Level 154H, Calcium Level 9.9, Corrected Calcium 10.1, Total Bilirubin 0.5, Aspartate Amino Transf (AST/SGOT) 36H, Alanine Aminotransferase (ALT/SGPT) 16, Alkaline Phosphatase 163H, Total Protein 7.1, Albumin 3.7, Triglycerides Level 176H, Cholesterol Level 224H, LDL Cholesterol Direct 173H, VLDL Cholesterol 35, HDL Cholesterol 32L 09/30/22 15:29: Glucometer 162H 09/30/22 20:20: Glucometer 189H 10/01/22 05:05: 10/01/22 05:28: Glucometer 201H Microbiology 09/30/22 Urine Culture - Preliminary, Resulted Staphylococcus aureus 09/29/22 MRSA Screen - Final, Complete MRSA not isolated Assessment and Plan Assessment Recurrent Dislocation of Left Total Hip Arthroplasty Noncompliance UTI Problem List Recurrent Dislocation of Left Total Hip Arthroplasty Noncompliance UTI Plan Tentatively planning for revision of left total hip tomorrow; however if staph in urine is MRSA would recommend full treatment prior to proceeding with revision procedure. Will await culture and sensitivity. Obtaining new UA in AM to see if treatment has been effective. Final Diagonsis Recurrent Dislocation of Left Total Hip Arthroplasty Noncompliance UTI Level of the visit: Level 3 (global) SUSANNA COOPER MD Oct 01, 2022 09:40
--- NOTE | 2022-10-01 10:00 | Anesthesia-General Post-Op ---
General Patient Condition Mental Status/LOC: Same as Preop Cardiovascular: Satisfactory Nausea/Vomiting: Absent Respiratory: Satisfactory Pain: Controlled Complications: Absent Post Op Complications Complications None Follow Up Care/Instructions Patient Instructions None needed. Anesthesia/Patient Condition Patient Condition Patient is doing well, no complaints, stable vital signs, no apparent adverse anesthesia problems. No complications reported per nursing. D/C home per [facility] [place] Criteria: JORDI Mata CRNA Oct 01, 2022 09:59
--- NOTE | 2022-10-01 10:39 | Cardiology Progress Note ---
Subjective Date Seen by Provider: Oct 01, 2022 Time Seen by Provider: 09:30 Subjective/Events-last exam Pt did well overnight. Continues to complain of back pain that radiates around to anterior chest. EkG demonstrates sinus rhythm with nonspecific T wavechanges. UCx with S. aerariannas. Objective-Cardiology Exam Last Set of Vital Signs Vital Signs 10/01/22 10/01/22 10/01/22 07:15 07:22 08:00 Temp 36.1 Pulse 78 Resp 16 B/P (MAP) 120/75 (90) Pulse Ox 95 O2 Delivery Room Air O2 Flow Rate 0.00 I&O Intake and Output 10/01/22 00:00 Intake Total 1800 ml Output Total 1950 ml Balance -150 ml Intake Oral 800 ml IV Total 1000 ml Output Urine Total 1950 ml # Voids 1 # Bowel Movements 1 General: Alert, Oriented X3 HEENT: Atraumatic Neck: Supple, No JVD Lungs: Clear to Auscultation Heart: Regular Rate, Normal S1, Normal S2, No Murmurs Abdomen: Normal Bowel Sounds Extremities: No Clubbing, No Cyanosis, No Edema Psych/Mental Status: Mental Status NL Results Lab Laboratory Tests 09/30/22 13:27 A/P-Cardiology Assessment/Plan a 61 year old male with PMH total hip arthroplasty, recurrent hip dislocation, HTN, T2DM on insulin, HLD, CAD, CKD 3a, RLS, Parkinson's, gout, depression, tobacco abuse, obesity, who was admitted with recurrent hip dislocation. Cardiology service has been consulted for comanagement. ## Atypical chest pain- Pt reports pain worse with lying and improved with moving around exerting himself. Starts in scapular region and radiates around shoulder to anterior chest. EKG with normal sinurs rhythm and nonspecific T wav changes in the inferior leads. Denies SOB. presyncope syncope. BPs reasonably controlled - cont current regimen (initiated a cardiotonic regimen as pt was not on one prior- aSA 81, Toprol XL 12.5, IMdur 30 and lisinopirl 5, zetia 10 qd). Statin intolerant. . - check Tn x 1 to exclude ischemia as a possibility ## Preoperative risk stratification: Pt is an intermediate risk cardiac patient going for an intermediate risk non cardiac surgery. He is of acceptable risk to proceed. ## HTN: SBP 120-140s - cont current regimen ## HLD: statin intolerant; LDL 173 - start zetia - consider pcsk 9 inhibitor as outpt ## DM- last a1c of 11.5, most recent draw pending - endocrine consult as outpt TRACY HUTCHISON MD Oct 01, 2022 10:39
--- NOTE | 2022-10-01 11:04 | Diagnostic Imaging Report ---
INDICATION: Pneumonia. Frontal chest obtained at 09:48 a.m. compared with 11/17/2021. Heart and mediastinal silhouette are normal in appearance. The lungs are clear. There is no pneumothorax or pleural fluid. IMPRESSION: Negative chest. Dictated by: Dictated on workstation # [id number]
[2022-10-01] MEDS: KETOROLAC 15 MG/ML VIAL IVP PRN ×2 (11:05→22:20)
[2022-10-01 11:09] LABS: BILIRUBIN,URINE NEGATIVE (NEGATIVE); CLARITY,URINE SL CLOUDY; COLOR,URINE YELLOW; GLUCOSE, URINE (UA) 1+ (NEGATIVE); KETONES,URINE NEGATIVE (NEGATIVE); LEUKOCYTE ESTERASE ,URINE 3+ (NEGATIVE); NITRITE,URINE NEGATIVE (NEGATIVE); PROTEIN,URINE NEGATIVE (NEGATIVE)
[2022-10-01 11:19] LABS: BACTERIA,URINE TRACE /HPF; WBC,URINE 25-50 /HPF
[2022-10-01] MEDS: cefTRIAXone 1 GM PRE-MIX 50 ML IV SCH (11:44)
[2022-10-01] MEDS ORDERED: VANCOMYCIN INJECTION 0.1 MG in NS (IVPB) 250 ML IV SCH (13:30)
--- NOTE | 2022-10-01 13:52 | Progress Note - Hospitalist ---
Subjective HPI/CC On Admission Date Seen by Provider: Oct 01, 2022 Denis Alvarado is a 61 year old male with PMH total hip arthroplasty, recurrent hip dislocation, HTN, T2DM on insulin, HLD, CAD, CKD 3a, RLS, Parkinson's, gout, depression, tobacco abuse, obesity, who was admitted with recurrent hip dislocation. The hospitalist service has been consulted for comanagement. He is getting ready to go down for his procedure upon my arrival. He complains of hip pain. He has no other complaints. He has been in his usual state of health. He denies fevers. He denies chest pain. He denies shortness of breath. He denies nausea. He denies abdominal pain. Subjective/Events-last exam Pt states doing well but has some shoulde rpain. Has been present for weeks but worse while here. Worried he has pneumonia but has no cough or fever. Objective Exam Vital Signs Vital Signs Date Time Temp Pulse Resp B/P (MAP) Pulse Ox O2 Delivery O2 Flow Rate FiO2 10/01/22 13:06 87 10/01/22 11:12 36.0 18 113/68 (83) 95 Room Air 0.00 0.00 Capillary Refill : Less Than 3 SecondsLess Than 3 Seconds General Appearance: No Apparent Distress, Chronically ill Respiratory: Lungs Clear, No Accessory Muscle Use; No Crackles Cardiovascular: Regular Rate, Rhythm, No Murmur Gastrointestinal: Normal Bowel Sounds, Soft Neurologic/Psychiatric: Alert, Oriented x3 Results/Procedures Lab Patient resulted labs reviewed. Imaging: Reviewed Imaging Report Assessment/Plan Assessment and Plan Assess & Plan/Chief Complaint Left hip dislocation, recurrent History of left hip arthroplasty UTI Orthopedic surgery primary, Dr. Arnett Closed reduction 2/3 OR cancelled yesterday due to UTI staph growing in urine, switch ot Vanc for abx Pain regimen Bowel regimen Incentive spirometry Bed rest, abduction pillow Resume Lovenox today- dc 12 hours before surgery T2DM Well controlled Reduced dose Levemir Reduced dose Novolog Sliding scale C Parkinsons RLS Gout Anxiety Depression Obesity Continue home meds CAD Holding Prasugrel Cardiology consulted, appreciate recs Tobacco abuse Nicotine patch DVT prophylaxis: Lovenox, hold after today's dose for surgery MAYITO BARAKAT MD Oct 01, 2022 13:52
[2022-10-01] MEDS ORDERED: VANCOMYCIN 2000 MG/NS 500 ML IVPB IV NR ×2 (14:00)
[2022-10-01] MEDS: ENOXAPARIN 40 MG/0.4 ML (LOVENOX) SYR SQ SCH (17:17)
[2022-10-01] MEDS: eZETimibe 10 MG (ZETIA) TABLET PO SCH (19:51)
[2022-10-01] MEDS: CATHETER FLUSH 10 ML SYR IVP PRN (19:52)
[2022-10-01] MEDS: SINEMET 10/100 (CARBIDOPA/LEVADOPA) TAB PO SCH (21:56)
[2022-10-01] MEDS: rOPINIRole 1 MG (REQUIP) TABLET PO SCH (21:57)
[2022-10-01] MEDS ORDERED: VANCOMYCIN 1 GM/NS 250 ML IVPB IV NR ×2 (23:00)
[2022-10-02] VITALS (12 sets, daily range): BP systolic 84–133; BP diastolic 56–74
[2022-10-02] MEDS: morphine INJ 4 MG/ML 1 ML (VIAL/SYRINGE) IVP PRN ×5 (03:57→21:11)
[2022-10-02] MEDS: inSUlin ASPART (NovoLOG) 1 UNIT/0.01 ML (CHARGE PER UNIT) SC SCH ×6 (06:28→20:12)
[2022-10-02] MEDS: ISOSORBIDE MONONITRATE 30 MG (IMDUR) TAB PO SCH (07:52)
[2022-10-02] MEDS: lisINopril 5 MG (PRINIVIL) TABLET PO SCH (07:52)
[2022-10-02] MEDS: PREGABALIN 75 MG (LYRICA) CAP PO SCH ×2 (07:52→20:20)
[2022-10-02] MEDS: NICOTINE 21 MG (NICODERM) PATCH TD SCH (07:52)
[2022-10-02] MEDS: ASPIRIN E.C. 81 MG (ECOTRIN) TAB PO SCH ×2 (07:52→16:18)
[2022-10-02] MEDS: ALLOPURINOL 300 MG (ZYLOPRIM) TAB PO SCH (07:52)
[2022-10-02] MEDS: NICOTINE PATCH REMOVAL TP SCH (07:54)
[2022-10-02] MEDS: PATCH REMOVAL TP SCH (07:54)
[2022-10-02] MEDS: NICOTINE 14 MG (NICODERM) PATCH TD SCH (07:57)
[2022-10-02 10:22] LABS: BILIRUBIN,URINE NEGATIVE (NEGATIVE); CLARITY,URINE CLEAR; COLOR,URINE YELLOW; GLUCOSE, URINE (UA) NEGATIVE (NEGATIVE); KETONES,URINE NEGATIVE (NEGATIVE); LEUKOCYTE ESTERASE ,URINE 1+ (NEGATIVE); NITRITE,URINE NEGATIVE (NEGATIVE); PROTEIN,URINE NEGATIVE (NEGATIVE)
[2022-10-02 10:46] LABS: SQUAMOUS EPITHELIAL CELL,UR RARE /HPF
[2022-10-02 10:48] LABS: BACTERIA,URINE TRACE /HPF
[2022-10-02] MEDS ORDERED: VANCOMYCIN 1500 MG/NS 500 ML IVPB IV SCH ×2 (11:00)
--- NOTE | 2022-10-02 11:52 | Progress Note - Cardiology ---
Cardiology SOAP Progress Note Subjective: C/O back pain which is positional Reports mild SOB Objective: I&O/Vital Signs 10/02/22 10/02/22 10/02/22 10/02/22 01:00 03:58 07:11 07:43 Temp 36.0 36.5 Pulse 89 78 72 74 Resp 20 18 B/P (MAP) 110/70 (83) 122/64 (83) Pulse Ox 93 98 O2 Delivery Room Air Room Air 10/02/22 10/02/22 08:16 11:16 Temp 36.2 Pulse 63 Resp 18 B/P (MAP) 119/59 (79) Pulse Ox 96 O2 Delivery Room Air Room Air 10/02/22 00:00 Intake Total 2490 ml Output Total 1375 ml Balance 1115 ml Constitutional: AAO x 3, well-developed, well-nourished Respiratory: No accessory muscle use, No respiratory distress; chest expansion is symmetric, chest is bilaterally symmetric, lungs clear to auscultation Cardiovascular: regular rate-rhythm, S1 and S2 Gastrointestional: No tender; soft, round, audible bowel sounds Extremities: no lower extremity edema bilateral Neurologic/Psychiatric: grossly intact (moves all extremities) Skin: No rash on exposed areas, No ulcerations on exposed areas Results/Procedures: Labs Laboratory Tests 10/01/22 15:27: Glucometer 189H 10/01/22 21:05: Glucometer 155H 10/02/22 06:12: Glucometer 128H 10/02/22 09:55: Urine Color YELLOW, Urine Clarity CLEAR, Urine pH 6.0, Urine Specific [place] 1.015L, Urine Protein NEGATIVE, Urine Glucose (UA) NEGATIVE, Urine Ketones NEGATIVE, Urine Nitrite NEGATIVE, Urine Bilirubin NEGATIVE, Urine Urobilinogen 0.2, Urine Leukocyte Esterase 1+H, Urine RBC (Auto) NEGATIVE, Urine RBC NONE, Urine WBC 5-10H, Urine Squamous Epithelial Cells RARE, Urine Crystals NONE, Urine Bacteria TRACE, Urine Casts NONE, Urine Mucus NEGATIVE, Urine Culture Indicated YES 10/02/22 10:15: Glucometer 147H Microbiology 10/01/22 Urine Culture - Final, Complete NO GROWTH 09/29/22 MRSA Screen - Final, Complete MRSA not isolated Laboratory Tests 09/30/22 13:27 A/P: Assessment: H/o total hip arthroplasty, with recurrent hip dislocation - awaiting surgery by Dr. Arnett (delayed d/t UTI) - plan is to proceed today Atypical chest pain - Reports starts in the back and radiates around to his his sholder and across his chest; positional, improves with movement - EKG with normal sinurs rhythm and nonspecific T wav changes in the inferior leads - cont current regimen (initiated a cardiotonic regimen by Dr. Newton as pt was not on one prior- ASA 81, Toprol XL 12.5, IMdur 30 and lisinopirl 5, zetia 10 qd). HLD - reported statin intolerant. HTN - cont current regimen DM 2 - management per medical services Plan: Preoperative risk stratification per Dr. Newton's note of 10-01-22: Pt is an intermediate risk cardiac patient going for an intermediate risk non cardiac surgery. He is of acceptable risk to proceed. Continue current medication regimen Further recs will be based on his hospital course We have reviewed Dr. Newton's notes GWENDOLYN CHRISTOPHER Oct 02, 2022 11:52
[2022-10-02] MEDS ORDERED: MIDAZOLAM 2 MG/2 ML (VERSED) VIAL ONE (12:13)
[2022-10-02] MEDS ORDERED: SEVOFLURANE (ULTANE) 15 ML INHAL SOLN ONE ×2 (12:13→14:35)
[2022-10-02] MEDS ORDERED: LIDOCAINE PF 2% 5 ML (XYLOCAINE) VIAL ONE (12:13)
[2022-10-02] MEDS ORDERED: fentaNYL INJ 100 MCG/2 ML AMP ONE (12:13)
[2022-10-02] MEDS ORDERED: proPOfol 200 MG/20 ML (DIPRIVAN) VIAL IV ONE (12:13)
[2022-10-02] MEDS ORDERED: ONDANSETRON 4 MG/2 ML (SDV) Z0FRAN ONE (12:13)
[2022-10-02] MEDS ORDERED: ROCURONIUM 50 MG/5 ML (ZEMURON) VIAL IV ONE ×2 (12:15→13:39)
[2022-10-02] MEDS ORDERED: ceFAZolin INJECTION 1,000 MG VIAL IV NR (12:30)
[2022-10-02] MEDS: LACTATED RINGERS 1,000 ML IV PRN ×2 (12:34→13:28)
[2022-10-02] MEDS ORDERED: PHENYLEPHRINE 100 MCG/ML 10 ML (ANESTHESIA) SYR ONE (12:59)
[2022-10-02] MEDS ORDERED: GLYCOPYRROLATE 0.2 MG/ML (ROBINUL) 2 ML VIAL ONE ×2 (13:01→14:34)
[2022-10-02] MEDS ORDERED: PHENYLEPHRINE INJ 10 MG/ML (FOR PYXIS KITS ONLY) ONE (13:16)
[2022-10-02] MEDS ORDERED: TRANEXAMIC ACID 100 MG/ML 10 ML INJECTION ONE (14:23)
[2022-10-02] MEDS ORDERED: WATER (STERILE) FOR INJECTION 20 ML ONE (14:31)
[2022-10-02] MEDS ORDERED: NEOSTIGMINE (BLOXIVERZ ) 1 MG/1ML 10 ML VIAL ONE (14:33)
--- NOTE | 2022-10-02 14:40 | CONSULTATION REPORT ---
DATE OF SERVICE: 09/30/2022 REASON FOR CONSULTATION: Chest discomfort, preoperative risk stratification. HISTORY OF PRESENT ILLNESS: The patient is a 61-year-old gentleman with a history of hypertension, diabetes with an A1c of 11.5, hyperlipidemia, CAD, status post PCI to the proximal LAD back in October of 2021, chronic renal insufficiency, obesity, restless leg syndrome, Parkinson's disorder, gout, depression and current tobacco use, who presents for evaluation of a hip dislocation. The patient states that he underwent hip surgery several months back. Since that time, he has had two hip dislocations, which have been reduced. He then had another hip dislocation this time around, which they attempted to reduce were unsuccessful. He comments that his first hip dislocation occurred after a fall. Subsequent hip dislocations have occurred after reaching down to grab something. In the interim, he also reports that he had been having some discomfort. He notes that it is a knife-like sensation that occurs in the back and radiates around to the shoulder and towards the anterior chest. He comments that it is actually worse with lying down and resting and improves when he gets up and walks around. He denies any associated diaphoresis or shortness of breath. He denies any PND, orthopnea, or worsening lower extremity edema. HE IS ALLERGIC TO STATINS WELL PLAVIX and as a result is currently maintained on aspirin and prasugrel. He is not on much in the way of a cardiotonic regimen because he states that the other medications are blood pressure medications and his blood pressure is pretty good. REVIEW OF SYSTEMS: All systems were reviewed and are negative except for what has been described in HPI. MEDICATIONS: Currently include allopurinol 400 mg p.o. b.i.d., Basaglar, Sinemet 100/100 one tab p.o. daily, Flexeril 5 mg p.o. b.i.d. p.r.n., prasugrel 10 mg p.o. daily, aspirin 81 mg p.o. daily, Lyrica 75 mg p.o. daily, Requip 4 mg p.o. each day at bedtime, Zoloft 50 mg p.o. daily and tramadol p.r.n. ALLERGIES: STATINS, FOR WHICH HE GETS MUSCLE ACHES AND PLAVIX, FOR WHICH HE EXPERIENCES A RASH. FAMILY HISTORY: Reviewed and is noncontributory. SOCIAL HISTORY: Continues to smoke daily. PHYSICAL EXAMINATION: VITAL SIGNS: T-max 36.4, heart rate 80, respiratory rate 20, blood pressure 110s-120s/70s-80s, satting greater than 99% on 2 liters. GENERAL: He is in no acute distress. He is resting comfortably in the bed. NECK: Soft and supple. No cervical lymphadenopathy or thyromegaly. LUNGS: Clear to auscultation bilaterally, coarse in the bilateral lung villeda, but otherwise no wheezing, rales or rhonchi. HEART: Regular rate and rhythm, normal S1, S2. No murmurs, gallops or rubs. ABDOMEN: Positive bowel sounds, soft, nontender, nondistended. No hepatosplenomegaly. EXTREMITIES: Warm and well perfused. He has no cyanosis, clubbing or edema. LABS AND IMAGING: Significant for white blood cell count of 5.5, hematocrit of 43, platelets of 188, hemoglobin of 14.7, INR is 0.9. UA shows 3+ LE, + nitrites, many bacteria. Sodium 139, potassium 4.0, chloride 102, bicarbonate 25, BUN 20, creatinine is 1.2. Triglycerides are 176, total cholesterol 224, LDL is 173, HDL is 32. ASSESSMENT AND PLAN: The patient is a 61-year-old gentleman with the above-mentioned medical problems who presents for evaluation after hip dislocation, now asking for preoperative risk stratification. 1. Preoperative risk stratification. The patient is a poorly controlled diabetic with an A1c of 11.5, has had a PCI to the proximal LAD in October of 2021. He is reporting symptoms that are not typical of chest pain with pain originating in the back and radiating to the front only occurring at rest. At this point in time, he is an intermediate risk cardiac patient going for an intermediate-risk noncardiac surgery. He is of acceptable risk to go forward. I would recommend getting him started on a cardiotonic regimen, which will include aspirin 81 mg p.o. daily, lisinopril 5 mg p.o. daily, Toprol-XL 12.5 mg p.o. daily and Zetia 10 mg p.o. daily. Recommend holding his prasugrel at this point in time given the anticipated upcoming surgery. 2. Hypertension changes as noted above. 3. Diabetes, A1c of 11.5. We will check an A1c. He is not on statin given his allergy. May want to consider a PCSK9 inhibitor as time goes on. We will continue Zetia. We will start him on Zetia as noted above. We will start him on an ANAMARIA inhibitor with lisinopril 5 mg p.o. daily as well. 4. Tobacco abuse. Continue with nicotine patch. DISPOSITION: 1. We will also check an EKG barring any issues with respect to his EKG, relative to changes from prior. Continue him on his cardiotonic regimen and he will be okay to move forward with his procedure. 2. Urinary tract infection. Continue ceftriaxone. Awaiting surgery. Thank you very much for allowing me to participate in his care. Job ID: [id number] DocumentID: [id number] Dictated Date: 09/30/2022 16:44:36 Field Spec Date: 09/30/2022 17:20:00 Dictated By: TRACY HUTCHISON MD MTDD
[2022-10-02] MEDS ORDERED: KETOROLAC 30 MG/ML VIAL ONE (14:41)
[2022-10-02] MEDS ORDERED: ROPIVACAINE 5MG/ML 30ML VIAL ONE (14:46)
--- NOTE | 2022-10-02 15:09 | Operative Report - Ortho ---
Operative Report Surgeon (s)/Cafeteria Cook (s) Surgeon SUSANNA COOPER MD Cafeteria Cook n/a Pre-Operative Diagnosis Recurrent Dislocation of Left Total Hip Arthroplasty Post-Operative Diagnosis same Operative Report Date of Procedure: Oct 02, 2022 Name of Procedure Performed: Revision of Left Total Hip Arthroplasty Description & Findings After obtaining informed consent and marking the patient in the preoperative holding area, the patient did receive antibiotics and was taken to the operating room. General anesthesia was induced and patient was positioned in the lateral decubitus position with the left side up. Left lower extremity was prepped and draped in the usual sterile fashion. Surgical timeout was taken. Prior exposure was utilized. Scar tissue was removed. Hip was dislocated. Femoral head was removed from the stem using a tamp and mallet. Acetabulum was exposed. Polyethylene liner was removed using a small osteotome. Pulsatile lavage was utilized to irrigate the acetabular component. Scar tissue was removed from the edge of the component circumferentially. A liner for the [place]tar MDM was placed and impacted into place. Initially a neutral head and MDM trial were placed. Leg lengths were grossly equal; the hip was stable in position of sleep, and but had some instability in flexion and internal rotation. Hip was dislocated. The neck length was increased to +4 and the hip was located. Hip was once again located and found to have a s lightly lengthened left leg but significant improvement in stability. Given his history of recurrent dislocation and noncompliance with dislocation precautions, this was accepted. The hip was dislocated and the trial head and MDM were removed. Hip was irrigated with normal saline. Trunion was dried. +4 head and MDM component were impacted onto the Beckman taper of the stem. Hip was located. Hip was irrigated. Tranexamic acid was administered IV for hemostasis. The fascial layer was closed with #1 Ethibond. The subcutaneous layer was closed with 2-0 Vicryl. Skin was closed with kasia. Wound was dressed with xeroform, 4x4s, ABD, and tape. Patient was placed in abduction pillow and transferred to a hospital bed without difficulty and was stable to the recovery room. Anesthesia Type General Estimated Blood Loss 400 mL Specimen(s) collected/removed None SUSANNA COOPER MD Oct 02, 2022 15:09
[2022-10-02] MEDS ORDERED: morphine INJ 10 MG/ML 1ML (SYR OR VIAL) IVP ONE (15:15)
[2022-10-02] MEDS ORDERED: ONDANSETRON 4 MG/2 ML (SDV) Z0FRAN IV PRN (15:15)
[2022-10-02] MEDS ORDERED: ONDANSETRON 4 MG/2 ML (SDV) Z0FRAN IVP PRN (15:15)
--- NOTE | 2022-10-02 15:28 | Physical Therapy Progress Note ---
Therapy Progress Note Order for PT thelma received. Patient not in room at 1451. Will try back in the morning. LINDSAY FOSTER PT Oct 02, 2022 15:28
--- NOTE | 2022-10-02 16:14 | Diagnostic Imaging Report ---
INDICATION: Left hip revision. FINDINGS: AP view of pelvis is obtained. Since 09/27/2022, there has been revision of total left hip arthroplasty. There is normal alignment of prosthetic components. Gas and fluid are seen in the left hip joint. Right total hip arthroplasty and lower lumbar spinal hardware are stable. No acute fracture is seen. IMPRESSION: No acute abnormality. Dictated by: Dictated on workstation # [id number]
[2022-10-02] MEDS: KETOROLAC 15 MG/ML VIAL IVP PRN ×2 (16:18→23:15)
[2022-10-02] MEDS: ceFAZolin INJECTION 2,000 MG in NS (IVPB) 50 ML IV SCH (18:48)
[2022-10-02] MEDS: eZETimibe 10 MG (ZETIA) TABLET PO SCH (20:20)
[2022-10-02] MEDS: ONDANSETRON 4 MG/2 ML (SDV) Z0FRAN IV PRN (22:06)
[2022-10-02] MEDS: SINEMET 10/100 (CARBIDOPA/LEVADOPA) TAB PO SCH (22:07)
[2022-10-02] MEDS: rOPINIRole 1 MG (REQUIP) TABLET PO SCH (22:07)
[2022-10-02] MEDS: LORazepam 0.5 MG (ATIVAN) TABLET PO PRN (23:15)
[2022-10-03] MEDS: ceFAZolin INJECTION 2,000 MG in NS (IVPB) 50 ML IV SCH ×3 (00:52→21:41)
[2022-10-03] MEDS: morphine INJ 4 MG/ML 1 ML (VIAL/SYRINGE) IVP PRN (00:52)
[2022-10-03 04:59] VITALS: BP 135/71
[2022-10-03] MEDS: inSUlin ASPART (NovoLOG) 1 UNIT/0.01 ML (CHARGE PER UNIT) SC SCH ×6 (06:00→20:05)
[2022-10-03 07:26] VITALS: BP 128/77
[2022-10-03] MEDS: ISOSORBIDE MONONITRATE 30 MG (IMDUR) TAB PO SCH (08:17)
[2022-10-03] MEDS: PREGABALIN 75 MG (LYRICA) CAP PO SCH ×2 (08:17→20:27)
[2022-10-03] MEDS: NICOTINE 21 MG (NICODERM) PATCH TD SCH (08:17)
[2022-10-03] MEDS: ALLOPURINOL 300 MG (ZYLOPRIM) TAB PO SCH (08:17)
[2022-10-03] MEDS: lisINopril 5 MG (PRINIVIL) TABLET PO SCH (08:18)
[2022-10-03] MEDS: ASPIRIN E.C. 81 MG (ECOTRIN) TAB PO SCH ×2 (08:18→17:24)
[2022-10-03] MEDS: NICOTINE PATCH REMOVAL TP SCH (08:19)
--- NOTE | 2022-10-03 08:41 | Progress Note - Ortho ---
Progress Note Subjective Date of Exam 10/03/22 Chief Complaint POD #1 L SKYLER Revision HPI/Events since last exam up in chair, pain controlled, has done therapy Review of Systems - Allergies: Coded Allergies: [id number]-IxL Reductase Inhibitor (Verified Adverse Reaction, Unknown, muscle aches, 08/05/22) Home Meds Active Scripts Oxycodone HCl/Acetaminophen (Percocet 10-325 mg Tablet) 1 Each Tablet, 1 TAB PO Q4H PRN for PAIN-MODERATE (5-7), #20 TAB Prov:MAYITO BARAKAT MD 08/08/22 Reported Medications Prasugrel HCl (Prasugrel HCl) 10 Mg Tablet, 10 MG PO HS, TAB 08/05/22 Insulin Aspart (Novolog) 100 Unit/Ml Susp, 15 UNITS SC BIDAC, EA 08/05/22 Carbidopa/Levodopa (Carbidopa-Levodopa 10-100 Tab) 10 Mg-100 Mg Tablet, 2 EA PO HS, TAB 08/05/22 Sertraline HCl (Sertraline HCl) 50 Mg Tablet, 50 MG PO HS, TAB 11/02/21 Ropinirole HCl (Ropinirole HCl) 4 Mg Tab.er.24h, 4 MG PO HS, TAB 11/02/21 Pregabalin (Pregabalin) 75 Mg Capsule, 75 MG PO BID, CAP 11/02/21 Diclofenac Sodium (Diclofenac Sodium) 75 Mg Tablet.dr, 75 MG PO BID, TAB 11/02/21 Insulin Glargine,Hum.rec.anlog (Basaglar Kwikpen U-100) 100 Unit/Ml (3 Ml) Insuln.pen, 60 UNIT SQ HS, EA 11/02/21 Allopurinol (Allopurinol) 300 Mg Tablet, 300 MG PO DAILY, TAB 11/02/21 Objective Exam L Hip: Dressing C/D/I, + DF of ankle, no s/s of DVT Vital Signs Vital Signs Date Time Temp Pulse Resp B/P (MAP) Pulse Ox O2 Delivery O2 Flow Rate FiO2 10/03/22 07:26 36.4 84 19 128/77 (94) 97 Room Air 10/03/22 07:00 81 10/03/22 04:59 36.1 76 20 135/71 (92) 93 Room Air 10/03/22 01:00 73 10/02/22 23:09 36.5 80 20 133/74 (93) 97 Room Air 10/02/22 20:25 Room Air 10/02/22 19:02 36.0 67 20 115/67 (83) 95 Room Air 10/02/22 19:00 63 10/02/22 16:05 35.6 63 17 98/60 (73) 97 10/02/22 15:55 36.1 20 107/70 (82) 96 Room Air 10/02/22 15:55 Room Air 10/02/22 15:45 Room Air 10/02/22 15:40 20 106/71 (83) 97 Room Air 10/02/22 15:30 OxyMask 3.00 10/02/22 15:30 20 100/71 (81) 98 OxyMask 3.00 10/02/22 15:20 20 95/64 (74) 100 OxyMask 3.00 10/02/22 15:15 OxyMask 6.00 10/02/22 15:10 20 121/64 (83) 100 OxyMask 6.00 10/02/22 15:01 OxyMask 6.00 10/02/22 15:01 36.1 20 84/56 (65) 100 OxyMask 6.00 10/02/22 11:16 36.2 63 18 119/59 (79) 96 Room Air I & O 10/03/22 07:00 Intake Total 2230 ml Output Total 2045 ml Balance 185 ml Lab Results Laboratory Tests 10/02/22 09:55: Urine Color YELLOW, Urine Clarity CLEAR, Urine pH 6.0, Urine Specific [place] 1.015L, Urine Protein NEGATIVE, Urine Glucose (UA) NEGATIVE, Urine Ketones NEGATIVE, Urine Nitrite NEGATIVE, Urine Bilirubin NEGATIVE, Urine Urobilinogen 0.2, Urine Leukocyte Esterase 1+H, Urine RBC (Auto) NEGATIVE, Urine RBC NONE, Urine WBC 5-10H, Urine Squamous Epithelial Cells RARE, Urine Crystals NONE, Urine Bacteria TRACE, Urine Casts NONE, Urine Mucus NEGATIVE, Urine Culture Indicated YES 10/02/22 10:15: Glucometer 147H 10/02/22 15:09: Glucometer 108 10/02/22 20:03: Glucometer 116H 10/03/22 05:59: Glucometer 140H Microbiology 10/01/22 Urine Culture - Final, Complete NO GROWTH 09/29/22 MRSA Screen - Final, Complete MRSA not isolated Assessment and Plan Assessment Recurrent Dislocation of Left Total Hip s/p Revision Problem List Recurrent Dislocation of Left Total Hip s/p Revision Plan PT/OT DVT Prophylaxis Plan for home tomorrow with home health therapy Final Diagonsis Recurrent Dislocation of Left Total Hip s/p Revision Level of the visit: Level 3 (global) SUSANNA COOPER MD Oct 03, 2022 08:40
--- NOTE | 2022-10-03 09:34 | Anesthesia-General Post-Op ---
General Patient Condition Mental Status/LOC: Same as Preop Cardiovascular: Satisfactory Nausea/Vomiting: Absent Respiratory: Satisfactory Pain: Controlled Complications: Absent Post Op Complications Complications None Follow Up Care/Instructions Patient Instructions None needed. Anesthesia/Patient Condition Patient Condition Patient is doing well, no complaints, stable vital signs, no apparent adverse anesthesia problems. No complications reported per nursing. [place] [facility] [place]: Yes JORDI YEUNG CRNA Oct 03, 2022 09:34
--- NOTE | 2022-10-03 09:44 | Progress Note - Cardiology ---
Cardiology SOAP Progress Note Subjective: No cp or palp or syncope No shortness of breath No n/v/d No focal weakness Gen weakness improving Objective: I&O/Vital Signs 10/02/22 10/03/22 10/03/22 10/03/22 23:09 01:00 04:59 07:00 Temp 36.5 36.1 Pulse 80 73 76 81 Resp 20 20 B/P (MAP) 133/74 (93) 135/71 (92) Pulse Ox 97 93 O2 Delivery Room Air Room Air 10/03/22 07:26 Temp 36.4 Pulse 84 Resp 19 B/P (MAP) 128/77 (94) Pulse Ox 97 O2 Delivery Room Air 10/03/22 00:00 Intake Total 1780 ml Output Total 1120 ml Balance 660 ml Constitutional: AAO x 3, well-developed, well-nourished Respiratory: No accessory muscle use, No respiratory distress; chest expansion is symmetric, chest is bilaterally symmetric, lungs clear to auscultation Cardiovascular: regular rate-rhythm, S1 and S2 Gastrointestional: No tender; soft, round, audible bowel sounds Extremities: no lower extremity edema bilateral Neurologic/Psychiatric: other (moves all limbs) Skin: No rash on exposed areas, No ulcerations on exposed areas Results/Procedures: Labs Laboratory Tests 10/02/22 09:55: Urine Color YELLOW, Urine Clarity CLEAR, Urine pH 6.0, Urine Specific [place] 1.015L, Urine Protein NEGATIVE, Urine Glucose (UA) NEGATIVE, Urine Ketones NEGATIVE, Urine Nitrite NEGATIVE, Urine Bilirubin NEGATIVE, Urine Urobilinogen 0.2, Urine Leukocyte Esterase 1+H, Urine RBC (Auto) NEGATIVE, Urine RBC NONE, Urine WBC 5-10H, Urine Squamous Epithelial Cells RARE, Urine Crystals NONE, Urine Bacteria TRACE, Urine Casts NONE, Urine Mucus NEGATIVE, Urine Culture Indicated YES 10/02/22 10:15: Glucometer 147H 10/02/22 15:09: Glucometer 108 10/02/22 20:03: Glucometer 116H 10/03/22 05:59: Glucometer 140H Microbiology 10/01/22 Urine Culture - Final, Complete NO GROWTH 09/29/22 MRSA Screen - Final, Complete MRSA not isolated A/P: Assessment: Recurrent L hip dislocation, s/p repair on 10/02/22 Atypical chest pain - Reports starts in the back and radiates around to his his sholder and across his chest; positional, improves with movement - EKG with normal sinurs rhythm and nonspecific T wav changes in the inferior leads - cont current regimen (initiated a cardiotonic regimen by Dr. Newton as pt was not on one prior- ASA 81, Toprol XL 12.5, IMdur 30 and lisinopirl 5, zetia 10 qd). HLD - reported statin intolerant. HTN - cont current regimen DM 2 - management per medical services Plan: * Continue current card regimen * We recommend DVT prophylaxis. Hospitalist and Surgical services to decide on modality * Monitor labs MARYANA ALEXANDER MD FACP FAC CCDS Oct 03, 2022 09:44
--- NOTE | 2022-10-03 09:48 | Physical Therapy Evaluation ---
PT Evaluation-General Medical Diagnosis Admission Date Sep 27, 2022 at 02:00 Medical Diagnosis: recurrent left hip dislocation Onset Date: Sep 27, 2022 Therapy Diagnosis Therapy Diagnosis: impaired mobility Precautions Precautions/Isolations: Fall Prevention, Standard Precautions Weight Bear Status Right Lower Extremity: Right Weight Bearing/Tolerated Left Lower Extremity: Left Non Weight Bearing Referral Physician: Hope Reason for Referral: Evaluation/Treatment Medical History Pertinent Medical History: CAD, DM, HTN, Smoking Additional Medical History 3 left hip dislocations Current History s/p left THR Reviewed History: Yes Social History Home: Single Level Current Living Status: Spouse Entry Into Home: Stairs With Railing PT Steps Into Home: 3 Prior Prior Level of Function SCALE: Activities may be completed with or without assistive devices. 0-Wvwhufjczl-vsrnjtb completes the activity by him/herself with no assistance from a helper. 5-Set-up or Clean-up Assistance-helper sets up or cleans up; patient completes activity. [place] assists only prior to or following the activity. 4-Supervision or Touching Assistance-helper provides verbal cues and/or touching/steadying and/or contact guard assistance as patient completes activity. Assistance may be provided throughout the activity or intermittently. 3-Partial/Moderate Assistance-helper does LESS THAN HALF the effort. [place] l ifts, holds or supports trunk or limbs, but provides less than half the effort. 2-Substantial/Maximal Assistance-helper does MORE THAN HALF the effort. [place] lifts or holds trunk or limbs and provides more than half the effort. 5-Oaajvxbqe-ahktjj does ALL the effort. Patient does none of the effort to complete the activity. Or, the assistance of 2 or more helpers is required for t he patient to complete the activity. If activity was not attempted, code reason: 7-Patient Refused. 9-Not Applicable-not attempted and the patient did not perform the activity before the current illness, exacerbation or injury. 10-Not Attempted due to Environmental Limitations-(lack of equipment, weather restraints, etc.). 88-Not Attempted due to Medical Conditions or Safety Concerns. Bed Mobility: 6 Transfers (B,C,W/C): 6 Gait: 6 Stairs: 6 Indoor Mobility (Ambulation): Independent Stairs: Independent Prior Devices Use: None PT Evaluation-Current Subjective Patient agrees to PT. Pain Numeric Pain Scale: 5-Moderate Pain Location: Left Location Body Site: Hip Pain Description: Acute Objective Patient Orientation: Normal For Age ROM/Strength ROM Lower Extremities left hip precautions/right LE WFL Strength Lower Extremities left LE 3+/5 grossly/right LE 4+/5 grossly Integumentary/Posture Integumentary refer to nursing notes Bowel Incontinence: No Bladder Incontinence: Booth Cath Posture WFL Neuromuscular (Tone, Coordination, Reflexes) grossly intact Sensory Vision: Functional Hearing: Functional Sensation Right Lower Extremit: Intact Sensation Left Lower Extremity: Intact Transfers Lying to Sitting/Side of Bed(Q: 6 Sit to Stand (QC): 4 Chair/Bac-io-Qzfkg Xfer(QC): 4 Gait Mode of Locomotion: Walk Anticipated Mode of Locomotion: Walk Walk 10 feet (QC): 4 Walk 50 ft with 2 Turns(QC): 4 Walk 150 ft (QC): 4 Distance: 250' Gait Assistive Device: FWW Comments/Gait Description SBA for safety/reciprocal pattern Balance Sitting Static: Normal Sitting Dynamic: Normal Standing Static: Normal Standing Dynamic: Normal Assessment/Needs Patient will benefit from skilled PT to address functional strength and mobility to improve current LOF to safely return to home with spouse at maximum LOF. 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 PT Jail Goals Time Frame: Oct 12, 2022 Roll Left & Right (QC): 6 Sit to Lying (QC): 6 Lying-Sitting on Side/Bed(QC): 6 Sit to Stand (QC): 6 Chair/Hfn-ri-Zdobm Xfer(QC): 6 Toilet Transfer (QC): 6 Walk 10 feet (QC): 6 Walk 50ft with 2 Turns (QC): 6 Walk 150 ft (QC): 6 Walking 10ft on Uneven Surface: 6 1 Step (curb) (QC): 4 4 Steps (QC): 4 PT Plan Treatment/Plan Treatment Plan: Continue Plan of Care Treatment Plan: Education, Functional Activity Magaly, Functional Strength, Gait, Safety, Therapeutic Exercise, Transfers Treatment Duration: Oct 12, 2022 Frequency: 7 times per week Estimated Hrs Per Day: .5 hour per day Patient and/or Family Agrees t: Yes Safety Risks/Education Patient Education: Reviewed Precautions Time Time In: 745 Time Out: 801 DATE: Oct 03, 2022 Total Billed Treatment Time: 16 Total Billed Treatment 1 visit EVMod 16 min ESTELA DOMÍNGUEZ PT Oct 03, 2022 09:48
[2022-10-03] MEDS ORDERED: TROUGH ORDER-PHARMACY XX ONE (10:00)
[2022-10-03 11:40] VITALS: BP 110/78
[2022-10-03] MEDS ORDERED: CALCIUM CARBONATE 500 MG (TUMS) TAB.CHEW PO PRN (11:45)
--- NOTE | 2022-10-03 12:00 | Occupational Therapy Eval ---
OT Evaluation-General/PLF Medical Diagnosis Admission Date Sep 27, 2022 at 02:00 Medical Diagnosis: recurrent left hip dislocation Onset Date: Sep 27, 2022 Therapy Diagnosis Therapy Diagnosis: weakness Precautions Precautions/Isolations: Fall Prevention, Standard Precautions Comments TOTAL HIP PRECAUTIONS Weight Bear Status Weight Bearing Restriction: Weight Bearing/Tolerated Location Restriction: L LE Referral Physician: Hope Referral Reason: Self Care, Evaluation/Treatment Medical History Pertinent Medical History: CAD, DM, HTN, Smoking Reviewed History: Yes Social History Home: Single Level Current Living Status: Spouse Entry Into Home: Stairs With Railing Steps Into Home: 3 ADL-Prior Level of Function SCALE: Activities may be completed with or without assistive devices. 1-Ziplspovnj-vzdomxx completes the activity by him/herself with no assistance from a helper. 5-Set-up or Clean-up Assistance-helper sets up or cleans up; patient completes activity. [place] assists only prior to or following the activity. 4-Supervision or Touching Assistance-helper provides verbal cues and/or touching/steadying and/or contact guard assistance as patient completes activity. Assistance may be provided throughout the activity or intermittently. 3-Partial/Moderate Assistance-helper does LESS THAN HALF the effort. [place] lifts, holds or supports trunk or limbs, but provides less than half the effort. 2-Substantial/Maximal Assistance-helper does MORE THAN HALF the effort. [place] lifts or holds trunk or limbs and provides more than half the effort. 4-[place]-wvggxp does ALL the effort. Patient does none of the effort to complete the activity. Or, the assistance of 2 or more helpers is required for the patient to complete the activity. If activity was not attempted, code reason: 7-Patient Refused. 9-Not Applicable-not attempted and the patient did not perform the activity before the current illness, exacerbation or injury. 10-Not Attempted due to Environmental Limitations-(lack of equipment, weather restraints, etc.). 88-Not Attempted due to Medical Conditions or Safety Concerns. 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 Self: Yes OT Current Status Subjective Up in recliner, resting reports mild pain to Mental Status/Objective Patient Orientation: Person, Place, Time, Situation Current Upper Extremity ROM BUE ROM/strength/coordination WNLs Upper Extremity Strength +4/5 BUEs grossly ADL-Treatment ADL-Current needs reinforcement of LB dressing and functional activity w/ [place] restrictions Eating (QC): 6 Oral Hygiene (QC): 5 Shower/Bathe Self (QC): 4 Upper Body Dressing (QC): 5 Lower Body Dressing (QC): 4 On/Off Footwear (QC): 4 Toileting Hygiene (QC): 4 Other Treatments extensive education for [place] restrictions Education OT Patient Education: Correct positioning, Exercise program, Modified ADL techniques, Progress toward Goal/Update tx plan, Purpose of tx/functional activities, Reviewed precautions, Rehab process, Safety issues, Transfer techniques, Use of adapted equipment Teaching Recipient: Patient Teaching Methods: Demonstration, Discussion Response to Teaching: Verbalize Understanding, Reinforcement Needed OT Instructor Technical Training Goals Care Home Goals Time Frame: Oct 12, 2022 Eating (QC): 6 Oral Hygiene (QC): 6 Toileting Hygiene (QC): 6 Shower/Bathe Self (QC): 6 Upper Body Dressing (QC): 6 Lower Body Dressing (QC): 6 On/Off Footwear (QC): 6 1=Demonstrate adherence to instructed precautions during ADL tasks. 2=Patient will verbalize/demonstrate understanding of assistive devices/modifications for ADL. 3=Patient will improve strength/tolerance for activity to enable patient to perform ADL's. OT Education/Plan Problem List/Assessment Assessment: Decreased Safety Aware, Impaired Funct Balance, Impaired I ADL's, Impaired Self-Care Skills Discharge Recommendations Plan/Recommendations: Continue POC Therapy Discharge Recommendati: Home & Family Equpiment Recommendations-D/C: Hip Kit Treatment Plan/Plan of Care Treatment,Training & Education: Yes Patient would benefit from OT for education, treatment and training to promote independence in ADL's, mobility, safety and/or upper extremity function for ADL's. Plan of Care: ADL Retraining, Functional Mobility, Group Exercise/Act as Ind, UE Funct Exercise/Act Comment remains up in chair for breakfast, all needs met Treatment Duration: Oct 12, 2022 Frequency: 3 times per week Estimated Hrs Per Day: .25 hour per day Agreement: Yes Rehab Potential: Good Time Start Time: 09:35 Stop Time: 10:01 DATE: Oct 03, 2022 Total Time Billed (hr/min): 34 Billed Treatment Time 1 visit [facility] 1, ADL1 34 min AJAY ULRICH OT Oct 03, 2022 12:00
[2022-10-03] MEDS: KETOROLAC 15 MG/ML VIAL IVP PRN ×2 (12:20→18:37)
--- NOTE | 2022-10-03 12:33 | Progress Note - Hospitalist ---
Subjective HPI/CC On Admission Date Seen by Provider: Oct 03, 2022 Denis Alvarado is a 61 year old male with PMH total hip arthroplasty, recurrent hip dislocation, HTN, T2DM on insulin, HLD, CAD, CKD 3a, RLS, Parkinson's, gout, depression, tobacco abuse, obesity, who was admitted with recurrent hip dislocation. The hospitalist service has been consulted for comanagement. He is getting ready to go down for his procedure upon my arrival. He complains of hip pain. He has no other complaints. He has been in his usual state of health. He denies fevers. He denies chest pain. He denies shortness of breath. He denies nausea. He denies abdominal pain. Subjective/Events-last exam Pt reports doing well. Pain improved. No complaints. Hoping to et catheter out and ambulate more. Hopeful for DC home tomorrow. Objective Exam Vital Signs Vital Signs Date Time Temp Pulse Resp B/P (MAP) Pulse Ox O2 Delivery O2 Flow Rate FiO2 10/03/22 11:40 36.6 90 18 110/78 (89) 98 Room Air 10/02/22 15:30 3.00 Capillary Refill : Less Than 3 SecondsLess Than 3 Seconds General Appearance: No Apparent Distress, Obese Cardiovascular: Regular Rate, Rhythm, No Murmur Gastrointestinal: Normal Bowel Sounds, Soft Results/Procedures Lab Patient resulted labs reviewed. Imaging: Reviewed Imaging Report Assessment/Plan Assessment and Plan Assess & Plan/Chief Complaint Left hip dislocation, recurrent History of left hip arthroplasty UTI Orthopedic surgery primary, Dr. Arnett Closed reduction 2/3 POD #1 Pain regimen Bowel regimen Incentive spirometry Resume Lovenox T2DM Well controlled Reduced dose Levemir Reduced dose Novolog Sliding scale C Parkinsons RLS Gout Anxiety Depression Obesity Continue home meds CAD Holding Prasugrel Cardiology consulted, appreciate recs Tobacco abuse Nicotine patch DVT prophylaxis: Lovenox, hold after today's dose for surgery MAYITO BARAKAT MD Oct 03, 2022 12:33
[2022-10-03] MEDS ORDERED: ENOXAPARIN 40 MG/0.4 ML (LOVENOX) SYR SQ SCH (13:00)
--- NOTE | 2022-10-03 13:41 | Physical Therapy Daily Note ---
PT Daily Note-Current Subjective Patient agrees to PT. Spouse present. Pain Section J - Health Conditions 1. Rarely or not at all 2. Occasionally 3. Frequently 4. Almost constantly 8. Unable to answer Pain Effect on Sleep: 1 Pain Interference with Therapy: 1 Pain Interference w/Day-to-Day: 1 Mental Status Patient Orientation: Normal For Age Transfers SCALE: Activities may be completed with or without assistive devices. 4-Aadsbwurue-nsbdqss completes the activity by him/herself with no assistance from a helper. 5-Set-up or Clean-up Assistance-helper sets up or cleans up; patient completes activity. [place] assists only prior to or following the activity. 4-Supervision or Touching Assistance-helper provides verbal cues and/or touching/steadying and/or contact guard assistance as patient completes activity. Assistance may be provided throughout the activity or intermittently. 3-Partial/Moderate Assistance-helper does LESS THAN HALF the effort. [place] lifts, holds or supports trunk or limbs, but provides less than half the effort. 2-Substantial/Maximal Assistance-helper does MORE THAN HALF the effort. [place] lifts or holds trunk or limbs and provides more than half the effort. 9-Sugsvcesl-yhrcbs does ALL the effort. Patient does none of the effort to complete the activity. Or, the assistance of 2 or more helpers is required for the patient to complete the activity. If activity was not attempted, code reason: 7-Patient Refused. 9-Not Applicable-not attempted and the patient did not perform the activity before the current illness, exacerbation or injury. 10-Not Attempted due to Environmental Limitations-(lack of equipment, weather restraints, etc.). 88-Not Attempted due to Medical Conditions or Safety Concerns. Sit to Stand (QC): 6 Weight Bearing Right Lower Extremity: Right Weight Bearing/Tolerated Left Lower Extremity: Left Non Weight Bearing Gait Training Distance: >500' Walk 10 feet (QC): 6 Walk 50 ft with 2 Turns(QC): 6 Walk 150 ft (QC): 6 Gait Assistive Device: FWW reciprocal pattern Assessment Patient improving and is up with spouse PRN in hallway ambulating. Patient will dismiss tomorrow per physician. PT Mcfp Goals Mcfp Goals PT Mcfp Goals Time Frame: Oct 12, 2022 Roll Left & Right (QC): 6 Sit to Lying (QC): 6 Lying-Sitting on Side/Bed(QC): 6 Sit to Stand (QC): 6 Chair/Nak-hu-Nrkfd Xfer(QC): 6 Toilet Transfer (QC): 6 Walk 10 feet (QC): 6 Walk 50ft with 2 Turns (QC): 6 Walk 150 ft (QC): 6 Walking 10ft on Uneven Surface: 6 1 Step (curb) (QC): 4 4 Steps (QC): 4 PT Plan Treatment/Plan Treatment Plan: Continue Plan of Care Treatment Plan: Education, Functional Activity Magaly, Functional Strength, Gait, Safety, Therapeutic Exercise, Transfers Treatment Duration: Oct 12, 2022 Frequency: 7 times per week Estimated Hrs Per Day: .5 hour per day Patient and/or Family Agrees t: Yes Time Time In: 1305 Time Out: 1315 DATE: Oct 03, 2022 Total Billed Treatment Time: 10 Total Billed Treatment 1 visit FA 10 min ESTELA DOMÍNGUEZ PT Oct 03, 2022 13:41
[2022-10-03 15:40] VITALS: BP 129/67
[2022-10-03 19:34] VITALS: BP 145/79
[2022-10-03] MEDS: eZETimibe 10 MG (ZETIA) TABLET PO SCH (20:26)
[2022-10-03] MEDS: rOPINIRole 1 MG (REQUIP) TABLET PO SCH (20:27)
[2022-10-03] MEDS: SINEMET 10/100 (CARBIDOPA/LEVADOPA) TAB PO SCH (20:27)
[2022-10-03 23:28] VITALS: BP 143/68
[2022-10-04] MEDS: KETOROLAC 15 MG/ML VIAL IVP PRN (00:46)
[2022-10-04 03:23] VITALS: BP 137/65
[2022-10-04] MEDS: ceFAZolin INJECTION 2,000 MG in NS (IVPB) 50 ML IV SCH (05:26)
[2022-10-04] MEDS: inSUlin ASPART (NovoLOG) 1 UNIT/0.01 ML (CHARGE PER UNIT) SC SCH ×2 (05:33→06:44)
[2022-10-04 06:09] LABS: BASOPHILS # (AUTO) 0.1 10^3/uL (0.0-0.1); BASOPHILS % (AUTO) 1 % (0-10); EOSINOPHILS # (AUTO) 0.2 10^3/uL (0.0-0.3); EOSINOPHILS % (AUTO) 5 % (0-10); HEMATOCRIT 32 % (40-54); LYMPHOCYTES # (AUTO) 1.7 10^3/uL (1.0-4.0); LYMPHOCYTES % (AUTO) 33 % (12-44); MEAN CORPUSCULAR HGB CONC 34 g/dL (32-36); MEAN CORPUSCULAR VOLUME 90 fL (80-99); MEAN PLATELET VOLUME 10.4 fL (9.0-12.2); MONOCYTES # (AUTO) 0.5 10^3/uL (0.0-1.0); MONOCYTES % (AUTO) 10 % (0-12); NEUTROPHILS # (AUTO) 2.5 10^3/uL (1.8-7.8); NEUTROPHILS % (AUTO) 50 % (42-75); PLATELET COUNT 172 10^3/uL (130-400)
[2022-10-04 06:15] LABS: MEAN CORPUSCULAR HEMOGLOBIN 30 pg (25-34)
[2022-10-04 06:19] LABS: ALBUMIN 3.5 GM/DL (3.2-4.5)
[2022-10-04 06:20] LABS: POTASSIUM 4.4 MMOL/L (3.6-5.0)
[2022-10-04 06:21] LABS: CALCIUM 9.2 MG/DL (8.5-10.1)
[2022-10-04 06:22] LABS: TOTAL PROTEIN 6.2 GM/DL (6.4-8.2)
[2022-10-04 06:24] LABS: BILIRUBIN,TOTAL 0.3 MG/DL (0.1-1.0)
[2022-10-04 06:26] LABS: CREATININE SERUM 1.23 MG/DL (0.60-1.30)
[2022-10-04 07:33] VITALS: BP 131/73
[2022-10-04] MEDS: ASPIRIN E.C. 81 MG (ECOTRIN) TAB PO SCH (08:49)
[2022-10-04] MEDS: ALLOPURINOL 300 MG (ZYLOPRIM) TAB PO SCH (08:49)
[2022-10-04] MEDS: lisINopril 5 MG (PRINIVIL) TABLET PO SCH (08:49)
[2022-10-04] MEDS: PREGABALIN 75 MG (LYRICA) CAP PO SCH (08:49)
[2022-10-04] MEDS: ISOSORBIDE MONONITRATE 30 MG (IMDUR) TAB PO SCH (08:50)
[2022-10-04] MEDS: NICOTINE PATCH REMOVAL TP SCH (08:51)
[2022-10-04] MEDS: NICOTINE 21 MG (NICODERM) PATCH TD SCH (08:51)
--- NOTE | 2022-10-04 09:11 | Occupational Ther Daily Note ---
OT Current Status-Daily Note Subjective OT arrived w/ patient in bathroom Mental Status/Objective Patient Orientation: Person, Place, Time, Situation ADL-Treatment Recall of [place] precautions w/ LB clothing management, transfers, functional mobility and reach, use of ADS Therapy Code Descriptions/Definitions Functional [place] Measure: 0=Not Assessed/NA 4=Minimal Assistance 1=Total Assistance 5=Supervision or Setup 2=Maximal Assistance 6=Modified [place] 3=Moderate Assistance 7=Complete IndependenceSCALE: Activities may be completed with or without assistive devices. 7-Lmlcwtjsbj-qveniab completes the activity by him/herself with no assistance from a helper. 5-Set-up or Clean-up Assistance-helper sets up or cleans up; patient completes activity. [place] assists only prior to or following the activity. 4-Supervision or Touching Assistance-helper provides verbal cues and/or touching/steadying and/or contact guard assistance as patient completes activity. Assistance may be provided throughout the activity or intermittently. 3-Partial/Moderate Assistance-helper does LESS THAN HALF the effort. [place] lifts, holds or supports trunk or limbs, but provides less than half the effort. 2-Substantial/Maximal Assistance-helper does MORE THAN HALF the effort. [place] lifts or holds trunk or limbs and provides more than half the effort. 4-Aeguaapyq-pndxlv does ALL the effort. Patient does none of the effort to complete the activity. Or, the assistance of 2 or more helpers is required for the patient to complete the activity. If activity was not attempted, code reason: 7-Patient Refused. 9-Not Applicable-not attempted and the patient did not perform the activity before the current illness, exacerbation or injury. 10-Not Attempted due to Environmental Limitations-(lack of equipment, weather restraints, etc.). 88-Not Attempted due to Medical Conditions or Safety Concerns. Eating (QC): 6 Oral Hygiene (QC): 6 Shower/Bathe Self (QC): 7 (refused) Upper Body Dressing (QC): 6 Lower Body Dressing (QC): 6 On/Off Footwear: 6 (with ADs) Toileting Hygiene (QC): 6 Toilet Transfer (QC): 6 Education OT Patient Education: Correct positioning, Modified ADL techniques, Progress toward Goal/Update tx plan, Purpose of tx/functional activities, Reviewed precautions, Rehab process, Safety issues, Transfer techniques, Use of adapted equipment Teaching Recipient: Patient Teaching Methods: Demonstration, Discussion Response to Teaching: Verbalize Understanding, Return Demonstration OT 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 2=Patient will verbalize/demonstrate understanding of assistive devices/modifications for ADL. 3=Patient will improve strength/tolerance for activity to enable patient to perform ADL's. OT Education/Plan Discharge Recommendations Plan/Recommendations: Discharge/Goals Met Equpiment Recommendations-D/C: Hip Kit Treatment Plan/Plan of Care Treatment,Training & Education: Yes Patient would benefit from OT for education, treatment and training to promote independence in ADL's, mobility, safety and/or upper extremity function for ADL's. Plan of Care: ADL Retraining, Functional Mobility Treatment Duration: Oct 12, 2022 Frequency: 3 times per week Estimated Hrs Per Day: .25 hour per day Agreement: Yes Rehab Potential: Good Pt remains up in chair w/ all needs met Time Start Time: 08:28 Stop Time: 08:40 DATE: Oct 04, 2022 Total Time Billed (hr/min): 12 Billed Treatment Time 1 visit ADL 1 12 minutes AJAY ULRICH OT Oct 04, 2022 09:11
--- NOTE | 2022-10-04 09:20 | Physical Therapy Daily Note ---
PT Daily Note-Current Subjective Patient agrees to PT. He reports he is going home soon. Pain Section J - Health Conditions 1. Rarely or not at all 2. Occasionally 3. Frequently 4. Almost constantly 8. Unable to answer Pain Effect on Sleep: 1 Pain Interference with Therapy: 1 Pain Interference w/Day-to-Day: 1 Mental Status Patient Orientation: Normal For Age Transfers SCALE: Activities may be completed with or without assistive devices. 9-Nqogjcfaaw-kqixamb completes the activity by him/herself with no assistance from a helper. 5-Set-up or Clean-up Assistance-helper sets up or cleans up; patient completes activity. [place] assists only prior to or following the activity. 4-Supervision or Touching Assistance-helper provides verbal cues and/or touching/steadying and/or contact guard assistance as patient completes activ ity. Assistance may be provided throughout the activity or intermittently. 3-Partial/Moderate Assistance-helper does LESS THAN HALF the effort. [place] lifts, holds or supports trunk or limbs, but provides less than half the effort. 2-Substantial/Maximal Assistance-helper does MORE THAN HALF the effort. [place] lifts or holds trunk or limbs and provides more than half the effort. 4-Rybietlme-zmgcsb does ALL the effort. Patient does none of the effort to complete the activity. Or, the assistance of 2 or more helpers is required for the patient to complete the activity. If activity was not attempted, code reason: 7-Patient Refused. 9-Not Applicable-not attempted and the patient did not perform the activity before the current illness, exacerbation or injury. 10-Not Attempted due to Environmental Limitations-(lack of equipment, weather restraints, etc.). 88-Not Attempted due to Medical Conditions or Safety Concerns. Sit to Stand (QC): 6 Weight Bearing Right Lower Extremity: Right Weight Bearing/Tolerated Left Lower Extremity: Left Non Weight Bearing Gait Training Distance: >300' Walk 10 feet (QC): 6 Walk 50 ft with 2 Turns(QC): 6 Walk 150 ft (QC): 6 Gait Assistive Device: FWW reciprocal pattern Stair Training Stair Training: Handrails/: 2 handrails #of Steps: 4 1 Step (curb) (QC): 6 4 Steps (QC): 6 Stairs: Pattern: Step to Assessment Patient demonstrated good compliance with hip precautions. Patient has attained all functional goals. PT to dismiss patient from services at this time. PT Roving Sizer Goals Care Home Goals PT Roving Sizer Goals Time Frame: Oct 12, 2022 Roll Left & Right (QC): 6 Sit to Lying (QC): 6 Lying-Sitting on Side/Bed(QC): 6 Sit to Stand (QC): 6 Chair/Ftd-vk-Bhdwe Xfer(QC): 6 Toilet Transfer (QC): 6 Walk 10 feet (QC): 6 Walk 50ft with 2 Turns (QC): 6 Walk 150 ft (QC): 6 Walking 10ft on Uneven Surface: 6 1 Step (curb) (QC): 4 4 Steps (QC): 4 PT Plan Treatment/Plan Treatment Plan: Discontinue PT, goals met Treatment Plan: Education, Functional Activity Magaly, Functional Strength, Gait, Safety, Therapeutic Exercise, Transfers Treatment Duration: Oct 12, 2022 Frequency: 7 times per week Estimated Hrs Per Day: .5 hour per day Patient and/or Family Agrees t: Yes Time Time In: 720 Time Out: 730 DATE: Oct 04, 2022 Total Billed Treatment Time: 10 Total Billed Treatment 1 visit FA 10 min ESTELA DOMÍNGUEZ PT Oct 04, 2022 09:20
--- NOTE | 2022-10-04 09:44 | Discharge Summary ---
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 It was unable to be reduced in the ER and so later that day he was taken to the operating room and the closed reduction was performed under sedation. Post reduction he was to remain at bedrest with abduction pillow; there was noncompliance with the abduction pillow followed by noncompliance with the activity restriction. On 09/30, he returned to the operating room with the plan being to revise his hip; after induction of anesthesia, a serna catheter was placed and purulent material was drained from his bladder. Urinalysis confirmed infection. He was returned to the floor under the same orders. Hospitalist service placed him on appropriate antibiotics. His revision was postponed until Friday. On 10/02/22, cultures had grown sensitive staph and his urinalysis had significantly improved. He did undergo revision of his left total hip arthroplasty. Tolerated the procedure well. On the day of surgery, he continued mechanical DVT prophylaxis. On POD #1, he began mobilizing with therapy. Chemical DVT prophylaxis was started. On POD #2, he was doing well with therapy and home health services had been idenitified he was ready for D/C home.] Labs and Pending Lab Test: Laboratory Tests 10/03/22 10:08: Glucometer 139H 10/03/22 15:22: Glucometer 193H 10/03/22 20:02: Glucometer 167H 10/04/22 05:05: White Blood Count 5.0, Red Blood Count 3.61L, Hemoglobin 11.0#L, Hematocrit 32L, Mean Corpuscular Volume 90, Mean Corpuscular Hemoglobin 30, Mean Corpuscular Hemoglobin Concent 34, Red Cell Distribution Width 13.0, Platelet Count 172, Mean Platelet Volume 10.4, Immature Granulocyte % (Auto) 0, Neutrophils (%) (Auto) 50, Lymphocytes (%) (Auto) 33, Monocytes (%) (Auto) 10, Eosinophils (%) (Auto) 5, Basophils (%) (Auto) 1, Neutrophils # (Auto) 2.5, Lymphocytes # (Auto) 1.7, Monocytes # (Auto) 0.5, Eosinophils # (Auto) 0.2, Basophils # (Auto) 0.1, Immature Granulocyte # (Auto) 0.0, Sodium Level 138, Potassium Level 4.4, Chloride Level 108H, Carbon Dioxide Level 22, Anion Gap 8, Blood Urea Nitrogen 24H, Creatinine 1.23, Estimat Glomerular Filtration Rate 66, BUN/Creatinine Ratio 20, Glucose Level 149H, Calcium Level 9.2, Corrected Calcium 9.6, Total Bilirubin 0.3, Aspartate Amino Transf (AST/SGOT) 34, Alanine Aminotransferase (ALT/SGPT) 11, Alkaline Phosphatase 144H, Total Protein 6.2L, Albumin 3.5 10/04/22 05:30: Glucometer 150H Microbiology 10/01/22 Urine Culture - Final, Complete NO GROWTH 09/29/22 MRSA Screen - Final, Complete MRSA not isolated Home Meds Active Percocet 10-325 mg Tablet (Oxycodone HCl/Acetaminophen) 1 Each Tablet 1 Tab PO Q4H PRN Reported Prasugrel HCl 10 Mg Tablet 10 Mg PO HS Novolog (Insulin Aspart) 100 Unit/Ml Susp 15 Units SC BIDAC Carbidopa-Levodopa 10-100 Tab (Carbidopa/Levodopa) 10 Mg-100 Mg Tablet 2 Ea PO HS Sertraline HCl 50 Mg Tablet 50 Mg PO HS Ropinirole HCl 4 Mg Tab.er.24h 4 Mg PO HS Pregabalin 75 Mg Capsule 75 Mg PO BID Diclofenac Sodium 75 Mg Tablet.dr 75 Mg PO BID Joshaglpriscilla Moorepen U-100 (Insulin Glargine,Hum.rec.anlog) 100 Unit/Ml (3 Ml) Insuln.pen 60 Unit SQ HS Allopurinol 300 Mg Tablet 300 Mg PO DAILY Assessment/Pt Instructions Remain WBAT on left leg; walker for assist. Adhere to posterior hip dislocation precautions. Dry dressing daily to incision site. Discharge Instructions Discharge Diet: ADA Diet Discharge Physical Examination Vital Signs Vital Signs Date Time Temp Pulse Resp B/P (MAP) Pulse Ox O2 Delivery O2 Flow Rate FiO2 10/04/22 08:00 Room Air 10/04/22 07:33 36.0 82 20 131/73 (92) 98 10/02/22 15:30 3.00 Extremity: Other (Left hip: Dressing C/D/I, +DF of ankle, no s/s of DVT) Allergies: Coded Allergies: Qtefoob-SMB-VaF Reductase Inhibitor (Verified Adverse Reaction, Unknown, muscle aches, 08/05/22) Discharge Summary Date of Admission Sep 27, 2022 at 02:00 Date of Discharge Discharge Diagnosis (1) Hip dislocation, left Status: Acute Qualifiers: Qualified Codes: S73.005A - Unspecified dislocation of left hip, initial encounter (2) History of total hip arthroplasty Status: Chronic Qualifiers: Qualified Codes: Z96.642 - Presence of left artificial hip joint (3) T2DM (type 2 diabetes mellitus) Status: Acute Qualifiers: Qualified Codes: E11.65 - Type 2 diabetes mellitus with hyperglycemia; 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
--- NOTE | 2022-10-04 09:46 | D/C HH Face to Face Order ---
D/C Face to Face Orders Instructions for Patient Via [facility], Patient Instructions/FollowUp: F/U on 10/16/[address] Arnett. WBAT on left leg; walker for assist. Posterior dislocation precautions. Dry dressing daily to hip. Physician to follow Patient: Jeremy Arnett Discharge Diet for Home: ADA Diet Patient Data-Allergies,Ht & Wt Patient Allergies: Coded Allergies: Nzkmekf-CTM-DaR Reductase Inhibitor (Verified Adverse Reaction, Unknown, muscle aches, 08/05/22) Home Health Need/Face to Face Date of Face to Face: Oct 04, 2022 Clinical Findings: Muscle weakness, Pain with ambulation I have seen Pt [id number]: Yes Discharged To: Home Diagnosis/Conditions: Recurrent Left Total Hip Dislocation s/p Revision of Left Total Hip Arthroplasty Patient is Homebound due to: Muscle weakness Homebound Status Due to the above stated illness, injury or surgical procedure (medical condition or diagnosis) and associated clinical findings, the patient is homebound because of his/her inability to leave home except with aid of a supportive device and/or person AND leaving the home requires a considerable and taxing effort or is medically contraindicated. Pt req the following assistanc: Walker Home Health Nursing Orders Home Health Services Order: Physical Therapy-Evaluate & Treat Home Health Infusion Therapy Line Start Date: Sep 30, 2022 Certify Stmt I certify that this patient is under my care and that I, a nurse practitioner or a physician; a assistant cross country coach working with me, had a face to face encounter that - meets the physician face to face encounter requirements with this patient as dated. JEREMY ARNETT MD Oct 04, 2022 09:46
[2022-10-04] MEDS ORDERED: ASPI-1238 PO (10:06)
[2022-10-04] MEDS ORDERED: CEPH500C PO (10:06)
[2022-10-04] MEDS ORDERED: OXC5T PO (10:06)
[2022-10-04] MEDS ORDERED: CEPHALEXIN 250 MG (KEFLEX) CAP PO SCH (21:00)
== END 2022-10-04 11:20 | disposition home health service (06) | DRG 467 ==
LOC: EDUNIT# 00:54 → ER 00:56 → 4TH 02:00
PROVIDERS: ADMIT Orthopaedic Surgery; ATTEND Orthopaedic Surgery
PROC: 0SRB0JZ Replacement of Left Hip Joint with Synthetic Substitute, Open Approach (ICD-10-PCS; 2022-09-27)
PROC: 0SPB0JZ Removal of Synthetic Substitute from Left Hip Joint, Open Approach (ICD-10-PCS; 2022-09-27)
PROC: 0SWSXJZ Revision of Synthetic Substitute in Left Hip Joint, Femoral Surface, External Approach (ICD-10-PCS; principal; 2022-09-27 11:04)
DX: T84.021A Dislocation of internal left hip prosthesis, initial encounter (principal); N39.0 Urinary tract infection, site not specified; I12.9 Hypertensive chronic kidney disease with stage 1 through stage 4 chronic kidney disease, or unspecified chronic kidney disease; E11.22 Type 2 diabetes mellitus with diabetic chronic kidney disease; E11.65 Type 2 diabetes mellitus with hyperglycemia; N18.31 Chronic kidney disease, stage 3a; Z79.4 Long term (current) use of insulin; Z79.899 Other long term (current) drug therapy; Z95.5 Presence of coronary angioplasty implant and graft; I25.10 Atherosclerotic heart disease of native coronary artery without angina pectoris; E11.40 Type 2 diabetes mellitus with diabetic neuropathy, unspecified; K21.9 Gastro-esophageal reflux disease without esophagitis; M19.90 Unspecified osteoarthritis, unspecified site; M10.9 Gout, unspecified; G25.81 Restless legs syndrome; G20 Parkinson's disease; F17.210 Nicotine dependence, cigarettes, uncomplicated; F41.9 Anxiety disorder, unspecified; F32.A Depression, unspecified; E66.9 Obesity, unspecified; Z68.34 Body mass index [BMI] 34.0-34.9, adult; Z91.199 Patient's noncompliance with other medical treatment and regimen due to unspecified reason; R07.89 Other chest pain; E78.5 Hyperlipidemia, unspecified; B95.62 Methicillin resistant Staphylococcus aureus infection as the cause of diseases classified elsewhere
CPT/HCPCS: 36415; 71045; 72170; 73502; 76000; 80053; 80061; 81000; 82947; 83036; 85025; 85027; 85610; 85730; 87077; 87081; 87088; 87186; 93005; 93041

== ENCOUNTER → 2022-11-13 | Outpatient (CLI) | payer OTHER, MEDICARE ==
[~2022-11-13] MED LIST changes: +CEPH500C PO; +OXC5T PO
--- NOTE | 2022-11-13 13:17 | Diagnostic Imaging Report ---
INDICATION: Left hip pain. TECHNIQUE/COMPARISON: AP and oblique views of the left hip were obtained and compared with 09/27/2022. FINDINGS: The left hip prosthesis appears in good alignment. Previous dislocation seen on 09/27/2022 appears reduced. There is no acute bony abnormality. IMPRESSION: Well aligned left hip prosthesis with reduction of the previous dislocation seen on 09/27/2022. There is no acute abnormality. Dictated by: Dictated on workstation # [id number]
== END ==
LOC: ORTHO 09:05
PROVIDERS: ATTEND Orthopaedic Surgery
DX: M25.552 Pain in left hip (principal)
CPT/HCPCS: 73502

== ENCOUNTER → 2023-01-01 | Outpatient (CLI) | payer OTHER, MEDICARE | LOC: ORTHO 09:59 | PROVIDERS: ATTEND Orthopaedic Surgery | DX: Z47.89 Encounter for other orthopedic aftercare (principal); E11.9 Type 2 diabetes mellitus without complications ==

== ENCOUNTER → 2023-05-15 | Outpatient (CLI) | payer OTHER, MEDICARE | LOC: WOUNDCARE 13:13 | PROVIDERS: ATTEND Family Medicine | DX: T25.331A Burn of third degree of right toe(s) (nail), initial encounter (principal); E11.621 Type 2 diabetes mellitus with foot ulcer; E11.65 Type 2 diabetes mellitus with hyperglycemia; F17.210 Nicotine dependence, cigarettes, uncomplicated; E11.40 Type 2 diabetes mellitus with diabetic neuropathy, unspecified; E66.01 Morbid (severe) obesity due to excess calories; Z68.34 Body mass index [BMI] 34.0-34.9, adult; I70.235 Atherosclerosis of native arteries of right leg with ulceration of other part of foot | CPT/HCPCS: 16020; 87070; 87077; 87205; A6197; G0463; 87186 ==

== ENCOUNTER → 2023-05-29 | Outpatient (CLI) | payer OTHER, MEDICARE ==
[~2023-05-29] MED LIST changes: -PREG75CA75 PO; +PREG75CA76 PO
== END ==
LOC: WOUNDCARE 13:40
PROVIDERS: ATTEND Family Medicine
DX: T25.331A Burn of third degree of right toe(s) (nail), initial encounter (principal); I96 Gangrene, not elsewhere classified; E11.621 Type 2 diabetes mellitus with foot ulcer; E11.65 Type 2 diabetes mellitus with hyperglycemia; E11.40 Type 2 diabetes mellitus with diabetic neuropathy, unspecified; E66.01 Morbid (severe) obesity due to excess calories; I70.234 Atherosclerosis of native arteries of right leg with ulceration of heel and midfoot; F17.210 Nicotine dependence, cigarettes, uncomplicated; Z68.34 Body mass index [BMI] 34.0-34.9, adult
CPT/HCPCS: 16020; G0463

== ENCOUNTER → 2023-06-04 | Outpatient (CLI) | payer OTHER, MEDICARE ==
[~2023-06-04] MED LIST changes: +CATHETER FLUSH 10 ML SYR IVP PRN; +REGADENOSON 0.4 MG/5 ML SYR IV ONE
[2023-06-04 09:04] VITALS: BP 151/79
--- NOTE | 2023-06-04 13:30 | Cardiology Stress Test Report ---
Stress Test Report Date of Procedure/Referring: Date of Procedure: Jun 04, 2023 PCP Jason Peralta MD Admitting Physician Admitting Physician: Attending Physician: Gricel Mcdonough MD Baseline Heart Rate: 77 Baseline Blood Pressure: Blood Pressure Systolic: 151 Blood Pressure Diastolic: 79 Baseline Vitals Vital Signs Date Time Temp Pulse Resp B/P (MAP) Pulse Ox O2 Delivery O2 Flow Rate FiO2 06/04/23 09:04 77 151/79 (103) Baseline EKG: Baseline EKG: NSR Summary After explaining the procedure to the patient, he signed a consent and then brought to the stress nuclear laboratory. Patient received 0.4 mg Lexiscan for stress test, ECG, heart rate and blood pressure were monitored continuously. Resting and stress dose of radio tracer were injected, imaging was acquired and reviewed in short axis, horizontal long axis and vertical long axis views. TID: 1.11 SSS: 4 SDS: 4 EF: 63 Patient tolerated Lexiscan well Diaphragmatic attenuation with typical male pattern, mild decrease uptake at the inferior apical segment with mild reversibility, no significant ischemia or infarction on SPECT images Normal left ventricular size, ejection fraction 63% GRICEL MCDONOUGH MD Jun 04, 2023 13:30
== END ==
LOC: CARD 06:57
PROVIDERS: ATTEND Internal Medicine Cardiovascular Disease
DX: J98.6 Disorders of diaphragm (principal); I10 Essential (primary) hypertension; I25.10 Atherosclerotic heart disease of native coronary artery without angina pectoris
CPT/HCPCS: 78452; 93017; A9502

== ENCOUNTER → 2023-06-16 | Outpatient (CLI) | payer OTHER, MEDICARE ==
[~2023-06-16] MED LIST changes: -CATHETER FLUSH 10 ML SYR IVP PRN; -REGADENOSON 0.4 MG/5 ML SYR IV ONE
== END ==
LOC: WOUNDCARE 10:20
PROVIDERS: ATTEND Family Medicine
DX: T25.331A Burn of third degree of right toe(s) (nail), initial encounter (principal); E11.621 Type 2 diabetes mellitus with foot ulcer; E11.65 Type 2 diabetes mellitus with hyperglycemia; F17.210 Nicotine dependence, cigarettes, uncomplicated; E11.42 Type 2 diabetes mellitus with diabetic polyneuropathy; E66.01 Morbid (severe) obesity due to excess calories; Z68.34 Body mass index [BMI] 34.0-34.9, adult; I70.235 Atherosclerosis of native arteries of right leg with ulceration of other part of foot; L03.031 Cellulitis of right toe; E11.52 Type 2 diabetes mellitus with diabetic peripheral angiopathy with gangrene; I96 Gangrene, not elsewhere classified
CPT/HCPCS: 16020; 87070; 87077; 87186; 87205; G0463

== ENCOUNTER → 2023-06-25 | Outpatient (CLI) | payer OTHER, MEDICARE ==
[2023-06-25 11:29] LABS: BASOPHILS # (AUTO) 0.1 10^3/uL (0.0-0.1); BASOPHILS % (AUTO) 1 % (0-10); EOSINOPHILS # (AUTO) 0.3 10^3/uL (0.0-0.3); EOSINOPHILS % (AUTO) 4 % (0-10); HEMATOCRIT 43 % (40-54); HEMOGLOBIN 14.9 g/dL (13.3-17.7); LYMPHOCYTES # (AUTO) 1.9 10^3/uL (1.0-4.0); LYMPHOCYTES % (AUTO) 26 % (12-44); MEAN CORPUSCULAR HEMOGLOBIN 31 pg (25-34); MEAN CORPUSCULAR HGB CONC 35 g/dL (32-36); MEAN CORPUSCULAR VOLUME 90 fL (80-99); MEAN PLATELET VOLUME 9.8 fL (9.0-12.2); MONOCYTES # (AUTO) 0.6 10^3/uL (0.0-1.0); MONOCYTES % (AUTO) 8 % (0-12); NEUTROPHILS # (AUTO) 4.3 10^3/uL (1.8-7.8); NEUTROPHILS % (AUTO) 60 % (42-75); PLATELET COUNT 190 10^3/uL (130-400); WHITE BLOOD COUNT 7.1 10^3/uL (4.3-11.0)
[2023-06-25 11:47] LABS: ERYTHROCYTE SEDIMENTATION RATE 14 MM/HR (0-30)
[2023-06-25 11:56] LABS: ALBUMIN 4.3 GM/DL (3.2-4.5); BILIRUBIN,TOTAL 0.5 MG/DL (0.1-1.0); CALCIUM 9.5 MG/DL (8.5-10.1); CREATININE SERUM 1.66 MG/DL (0.60-1.30); POTASSIUM 4.4 MMOL/L (3.6-5.0); TOTAL PROTEIN 7.5 GM/DL (6.4-8.2)
--- NOTE | 2023-06-25 14:54 | Diagnostic Imaging Report ---
INDICATION: DIABETIC FOOT ULCER RULE OUT OSTEOMYELITIS COMPARISON: None. Findings: 3 radiographic views of the right great toe were obtained. There is focal soft tissue defect involving the medial margins of the great toe. Underlying osseous structures are intact. No definite osteolytic process is seen. There is no acute fracture or dislocation. Joint spaces are maintained. No unexpected foreign bodies are seen. IMPRESSION:. Soft tissue defect of the right great toe, but no evidence of underlying acute osseous abnormalities. Please note, osteomyelitis cannot be excluded based on radiograph alone. If there is concern for osteomyelitis, MRI is advised. Dictated by: Dictated on workstation # [id number]
== END ==
LOC: WOUNDCARE 10:40
PROVIDERS: ATTEND Family Medicine
DX: T25.331A Burn of third degree of right toe(s) (nail), initial encounter (principal); I96 Gangrene, not elsewhere classified; E11.621 Type 2 diabetes mellitus with foot ulcer; I70.235 Atherosclerosis of native arteries of right leg with ulceration of other part of foot; E11.65 Type 2 diabetes mellitus with hyperglycemia; E11.40 Type 2 diabetes mellitus with diabetic neuropathy, unspecified; L03.031 Cellulitis of right toe; F17.210 Nicotine dependence, cigarettes, uncomplicated; E66.01 Morbid (severe) obesity due to excess calories; R11.2 Nausea with vomiting, unspecified; Z68.34 Body mass index [BMI] 34.0-34.9, adult
CPT/HCPCS: 16020; 73660; 80053; 83036; 85025; 85652; 86141; G0463; 36415

== ENCOUNTER → 2023-07-03 | Outpatient (CLI) | payer OTHER | LOC: WOUNDCARE 11:24 | PROVIDERS: ATTEND Family Medicine | DX: T25.331A Burn of third degree of right toe(s) (nail), initial encounter (principal); E11.621 Type 2 diabetes mellitus with foot ulcer; E11.65 Type 2 diabetes mellitus with hyperglycemia; E11.40 Type 2 diabetes mellitus with diabetic neuropathy, unspecified; F17.210 Nicotine dependence, cigarettes, uncomplicated; I96 Gangrene, not elsewhere classified; E66.01 Morbid (severe) obesity due to excess calories; I70.235 Atherosclerosis of native arteries of right leg with ulceration of other part of foot; R11.2 Nausea with vomiting, unspecified; Z68.34 Body mass index [BMI] 34.0-34.9, adult | CPT/HCPCS: 16020; G0463 ==

== ENCOUNTER → 2023-07-11 | Outpatient (CLI) | payer OTHER | LOC: WOUNDCARE 10:20 | PROVIDERS: ATTEND Family Medicine | DX: T25.331A Burn of third degree of right toe(s) (nail), initial encounter (principal); E11.621 Type 2 diabetes mellitus with foot ulcer; E11.65 Type 2 diabetes mellitus with hyperglycemia; F17.210 Nicotine dependence, cigarettes, uncomplicated; E11.40 Type 2 diabetes mellitus with diabetic neuropathy, unspecified; E66.01 Morbid (severe) obesity due to excess calories; Z68.34 Body mass index [BMI] 34.0-34.9, adult; I70.235 Atherosclerosis of native arteries of right leg with ulceration of other part of foot; R11.2 Nausea with vomiting, unspecified; Z91.198 Patient's noncompliance with other medical treatment and regimen for other reason; E11.52 Type 2 diabetes mellitus with diabetic peripheral angiopathy with gangrene; I96 Gangrene, not elsewhere classified | CPT/HCPCS: 99213 ==

== ENCOUNTER → 2023-07-31 | Outpatient (CLI) | payer OTHER | LOC: WOUNDCARE 13:05 | PROVIDERS: ATTEND Family Medicine | DX: E11.621 Type 2 diabetes mellitus with foot ulcer (principal); T25.331A Burn of third degree of right toe(s) (nail), initial encounter; E11.65 Type 2 diabetes mellitus with hyperglycemia; E11.40 Type 2 diabetes mellitus with diabetic neuropathy, unspecified; E66.01 Morbid (severe) obesity due to excess calories; I70.235 Atherosclerosis of native arteries of right leg with ulceration of other part of foot; R11.2 Nausea with vomiting, unspecified; Z91.198 Patient's noncompliance with other medical treatment and regimen for other reason; Z79.52 Long term (current) use of systemic steroids; F17.210 Nicotine dependence, cigarettes, uncomplicated; Z68.34 Body mass index [BMI] 34.0-34.9, adult | CPT/HCPCS: 16020; G0463 ==